=== PATIENT | female | born 1935 | race Caucasian/White ===

== ENCOUNTER 2016-09-16 21:24 | Inpatient (IN) | payer MEDICARE ==
[~2016-09-16] VITALS: Ht 147.3 cm; Wt 80.1 kg
--- NOTE | ~2016-09-16 | HEMODYNAMI ---
PATIENT:MICHELLE MEDRANO MEDICAL RECORD: [id number] : 31 LOCATION:[facility].[address] [place], [place] [address]T# [id number] ADMISSION DATE: 09/16/16 Generatedon:09/19/201614:39 Patient name: MICHELLE MEDRANO Patient #: [id number] SSN: DO B: 1935 Date of study: 09/19/2016 Page: Of Hemodynamic Procedure Report Patient Data Patient Demographics Procedure consent was obtained First Name: MICHELLE Gender: Female Last Name: MITCHELL : 1935 [facility] Initial: R Age: 81 year(s) Patient #: [id number] Race: Additional ID: [id number] Contact details Address: [address] [place] [address] State: [place] City: [place] Zip code: [address] Past Medical History Allergies Allergen Reaction Date Comments Reported Other allergy 09/19/2016 INDOCIN, TRAMADOL Admission Admission Data Admission Date: 09/16/2016 Admission Time: 23:44 Room #: [facility] Lab Results Lab Result Date: 09/19/2016 Lab Result Time: 0:00 Biochemistry Name Units Result Min Max BUN mg/dl 18 --(---*)-- 7 18 Creatinine mg/dl 1.5 --(----)-* 0.6 1.3 CBC Name Units Result Min Max Hemoglobin g/dl 10.6 *-(----)-- 13.5 17.5 Procedure Procedure Types Cath Procedure Diagnostic Procedure [facility] w/Coronaries PCI Procedure Coronary Stent Initial Procedure Description Procedure Date Procedure Date: 09/19/2016 Procedure Start Time: 14:18 Procedure End Time: 14:38 Procedure Staff Name Function Manuel Valentin MD Performing Physician Eleazar Escobedo RT Scrub Jonny Garibay RN Nurse Reece Boyd RT Monitor Procedure Data Cath Procedure Fluoroscopy Diagnostic fluoroscopy Total fluoroscopy Time: 4.7 time: 4.7 min min Diagnostic fluoroscopy Total fluoroscopy dose: 361 dose: 361 mGy mGy Contrast Material Contrast Material Type Amount (ml) Isovue 300 110 Entry Location Entry Primary Successful Side Size Upsize Upsize Entry Closure Garvey ccessful Closure Location (Fr) 1 (Fr) 2 (Fr) Remarks Device Remarks Radial Right 6 Fr Mechanical artery Short Compression Estimated blood loss: 10 ml Diagnostic catheters Device Type Used For End Catheter Placement Diagnostic Terumo 5Fr Procedure [place] 110cm catheter Procedure Medications Medication Administration Route Dosage Oxygen NC 2 l/min Heparin Flush Bag added to field 2 bags (1000units/500ml NS) 0.9% NaCl I.V. 100 ml/hr Radial Cocktail added to field 1 syringe (Verapomil 2mg/Nitro 400mcg/Heparin 1500units) Plavix P.O. 75 mg Fentanyl I.V. 50 mcg Versed I.V. 1 mg Radial Cocktail I.A. 1 syringe (Verapomil 2mg/Nitro 400mcg/Heparin 1500units) Heparin Bolus I.V. 4000 units Fentanyl I.V. 50 mcg Versed I.V. 1 mg Hemodynamics Rest HGB: 10.6 (g/dl) Heart Rate: 76 (bpm) Pressure Samples Time Site Value (mmHg) Purpose Heart Use Rate(bpm) 14:21 LV 105/5,34 Snapshot 74 14:21 AO 128/28(57) Snapshot 73 Snapshots Pre Cath Intra NCS Post Cath Vital Signs Time Heart Resp SPO2 NIBP (mmHg) Rhythm Pain Sedation Rate (ipm) (%) Status Level (bpm) 14:04:16 79 19 87 134/107(122) NSR 0 (11) 10(A) , No pain 14:08:53 76 19 95 146/69(100) NSR 0 (11) 10(A) , No pain 14:13:31 73 21 95 129/65(103) NSR 0 (11) 10(A) , No pain 14:18:12 72 22 93 119/55(88) NSR 0 (11) 10(A) , No pain 14:22:48 74 19 92 104/51(91) NSR 0 (11) 10(A) , No pain 14:27:19 70 23 95 114/53(92) NSR 0 (11) 9(A) , No pain 14:31:51 68 22 96 118/60(95) NSR 0 (11) 9(A) , No pain 14:36:19 74 21 95 124/73(113) NSR 0 (11) 10(A) , No pain Medications Time Medication Route Dose Verified Delivered Reason Note s Effectiveness by by 14:05:43 Oxygen NC 2 l/min Jonny Fuller Per physician Phoenix Garibay RN RN 14:05:59 Heparin Flush added 2 bags Jonny Fuller used for Bag to Phoenix Garibay RN procedure (1000units/500ml field RN NS) 14:06:27 0.9% NaCl I.V. 100 Jonny Fuller Per physician ml/hr Phoenix Garibay RN RN 14:06:47 Radial Cocktail added 1 Jonny Fuller used for (Verapomil to syringe Phoenix Garibay RN procedure 2mg/Nitro RN 400mcg/Heparin 1500units) 14:09:28 Plavix P.O. 75 mg Jonny Fuller for Phoenix Garibay RN antiplatelet RN therapy 14:20:23 Fentanyl I.V. 50 mcg Jonny Fuller for sedation Phoenix Garibay RN RN 14:20:59 Versed I.V. 1 mg Jonny Fuller for sedation Phoenix Garibay RN RN 14:21:08 Radial Cocktail I.A. 1 Jonny Jackson for (Verapomil syringe Phoenix Valentin MD vasodilation 2mg/Nitro RN 400mcg/Heparin 1500units) 14:22:38 Fentanyl I.V. 50 mcg Jonny Fuller for sedation Phoenix Garibay RN RN 14:22:44 Versed I.V. 1 mg Jonny Fuller for sedation Phoenix Garibay RN RN 14:29:40 Heparin Bolus I.V. 4000 Manuel Jonny for units Barbie Garibay RN anticoagulation Procedure Log Time Note 13:30:01 Jonny Garibay RN sent for patient. Start room use. 13:34:33 Diagnostic Cath Status : Elective 13:35:03 Time tracking: Regular hours 13:35:08 Plan of Care:Hemodynamics will remain stable., Cardiac rhythm will remain stable., Comfort level will be maintained., Respiratory function will remain adequate., Patient/ family verbilizes understanding of procedure., Procedure tolerated without complication., Recovers from procedure without complications.. 13:50:42 Patient received from Med/Surg to [facility] 3 Alert and oriented. Tansferred to table in Supine position. 13:50:43 Warm blankets applied, and jaida hugger turned on for patient comfort. 13:50:44 Correct patient and procedure confirmed by team. 13:50:45 Signed procedure consent form obtained from patient. 13:50:45 ECG and BP/O2 sat monitors applied to patient. 14:02:40 Vital chart was started 14:05:43 Oxygen 2 l/min NC was administered by Jonny Garibay RN; Per physician; 14:05:59 Heparin Flush Bag (1000units/500ml NS) 2 bags added to field was administered by Jonny Garibay RN; used for procedure; 14:06:27 0.9% NaCl 100 ml/hr I.V. was administered by Jonny Garibay RN; Per physician; 14:06:47 Radial Cocktail (Verapomil 2mg/Nitro 400mcg/Heparin 1500units) 1 syringe added to field was administered by Jonny Garibay RN; used for procedure; 14:09:28 Plavix 75 mg P.O. was administered by Jonny Garibay RN; for antiplatelet therapy; 14:09:39 Baseline sample Acquired. 14:09:44 Rhythm: sinus rhythm 14:09:45 Full Disclosure recording started 14:10:47 H&P Date Dictated: 09/16/2016 Within 30 days and on chart., ER History on chart.. 14:10:50 Pre-procedure instructions explained to patient. 14:10:53 Pre-op teaching completed and patient verbalized understanding. 14:10:56 Family in patients room. 14:11:00 Patient NPO since Breakfast. 14:12:35 Patient allergic to Other allergyINDOCIN, TRAMADOL 14:12:41 Is the patient allergic to Iodine/contrast media? No. 14:12:44 Is patient on blood thinner?Yes 14:13:02 Patient diabetic? Yes. 14:13:03 If diabetic: On Metformin? No 14:13:06 Patient not . Patient is over age 55. 14:13:08 ----Pre-sedation anethsthesia assessment.---- 14:13:09 Snore? Yes 14:13:11 Sleep apnea? No 14:13:13 Deviated septum? No 14:13:14 Opens mouth fully? Yes 14:13:15 Sticks out tongue? Yes 14:13:20 Airway obstruction? Yes COPD 14:13:26 Dentures? Yes IN TIGHT 14:13:48 ACC The patient was administered the following blood thiners within the last 24 hours: ACCPlavix 14:13:58 Modified Johnathan's test Ulnar < 7 seconds 14:14:00 Patient pain scale 0/10 ?. 14:14:09 IV patent on arrival in left wrist with 0.9% NaCl at [facility]. 14:14:20 IV right wrist D/C'd due to need to relocate for procedure.. 14:14:48 Lab Result : BUN 18 mg/dl 14:14:48 Lab Result : Creatinine 1.5 mg/dl 14:14:48 Lab Result : Hemoglobin 10.6 g/dl 14:15:26 Lab results completed and on chart. 14:15:32 Right Radial & Right Groin area was prepped with chlora-prep and draped in sterile fashion 14:15:34 Alarms reviewed by R. N. 14:15:34 Sharps counted by scrub and verified by R.N. 14:15:40 Physician arrived 14:15:41 --------ALL STOP TIME OUT------ 14:15:41 Final Timeout: patient, procedure, and site verified with staff and physician. All members of the team are in agreement. 14:15:46 Right Radial & Right Groin site verified by team. 14:15:50 Physical assessment completed. ASA score P 2 - A patient with mild systemic disease as per Manuel Valentin MD. 14:15:55 Sedation plan: IV Moderate Sedation Versed, Fentanyl 14:17:33 Use device set Radial Dx 14:17:35 Acist Syringe opened to sterile field. 14:17:35 Medline Cath Pack opened to sterile field. 14:17:36 Bag Decanter opened to sterile field. 14:17:36 Terumo 6Fr Slender Glidesheath opened to sterile field. 14:17:37 St Te 260cm J .035 wire opened to sterile field. 14:17:37 Acist Hand Control opened to sterile field. 14:17:38 Acist Manifold opened to sterile field. 14:17:38 Tegaderm 4 x 4 opened to sterile field. 14:17:41 MBrace Wrist Support opened to sterile field. 14:18:41 Procedure started. 14:18:51 Local anesthetic to right radial artery with Lidocaine 2% by Manuel Valentin MD.INITIAL ACCESS ONLY 14:19:25 A 6 Fr Short sheath was inserted into the Right Radial artery 14:19:59 Zero performed for pressure channel P1 14:20:23 Fentanyl 50 mcg I.V. was administered by Jonny Garibay RN; for sedation; 14::59 Versed 1 mg I.V. was administered by Jonny Garibay RN; for sedation; 14:21:08 Radial Cocktail (Verapomil 2mg/Nitro 400mcg/Heparin 1500units) 1 syringe I.A. was administered by Manuel Valentin MD; for vasodilation; 14::19 A Diagnostic Impulsiv 5Fr [place] 110cm catheter was advanced over the wire and used for Procedure. 14:21:39 LV hemodynamics recorded. 14:21:41 LV gram done using DESHPANDE 14:21:46 EF : 60 % 14:22:22 LCA angiography performed. 14:22:38 Fentanyl 50 mcg I.V. was administered by Jonny Garibay RN; for sedation; 14::44 Versed 1 mg I.V. was administered by Jonny Garibay RN; for sedation; 14:23:59 Catheter removed. 14:24:12 UNABLE TO CANNULATE THE THOM 14:25:12 Medtronic Launcher 6Fr AR 1.0 guide catheter opened to sterile field. 14:25:13 Smalls iWeeboisper J 300cm 0.014 guide wire opened to sterile field. 14:25:14 Rock ControlixCompak Inflation Kit opened to sterile field. 14:25:33 6 Fr AR 1 guide catheter was inserted over the wire 14:26:31 RCA angiography performed. 14:27:19 Proceeding to intervention. 14:28:59 WHISPER wire advanced. 14:29:01 Wire advanced across lesion. 14:29:29 Inflation Number: 1 A Biofreedom 3.5 x 24 stent (No Cost Implant) was prepped and advanced across the Mid RCA. The stent was deployed at 13 PATIENCE for 0:10 (min:sec). 14:29:40 Heparin Bolus 4000 units I.V. was administered by Jonny Garibay RN; for anticoagulation; 14:30:12 RE-INFLATED TO 17 ATS 14:30:15 Stent catheter was removed intact over wire. 14:31:56 Inflation Number: 1 A Biofreedom 3.5 x 14 stent (No Cost Implant) was prepped and advanced across the Prox RCA. The stent was deployed at 17 PATIENCE for 0:10 (min:sec). 14:31:57 Stent catheter was removed intact over wire. 14:31:58 Wire removed. 14:31:59 Guide catheter removed. 14:32:36 Terumo TR Band Large opened to sterile field. 14:34:19 Sheath removed intact; hemostasis achieved with Mechanical Compression to the Right Radial artery. 14:34:21 Procedure ended.(Physican Out) 14:34:35 Fluoroscopy time 04.70 minutes. 14:34:42 Fluoroscopy dose: 361 mGy 14:34:42 Flurop Dose total: 361 14:34:47 Contrast amount:Isovue 300 110ml. 14:34:48 Sharps counted by scrub and verified by R.N. 14:35:51 Procedure type changed to Cath procedure, Diagnostic procedure, LHC, LHC w/Coronaries, PCI procedure, Coronary Stent Initial 14:36:50 TR band inflated with 10cc of air. 14:36:52 Insertion/operative site no bleeding no hematoma. 14:37:10 Post right radial artery:stable 14:37:17 Post-procedure physical assessment completed. ASA score P 2 - A patient with mild systemic disease as per Mnauel Valentin MD. 14:37:21 Post procedure rhythm: sinus rhythm 14:37:24 Estimated blood loss: 10 ml 14:37:26 Post procedure instruction explained to patient.Patient verbalizes understanding. 14:37:34 Patient needs reinforcement of post procedure teaching. 14:37:38 Procedure and supply charges have been captured, reviewed, submitted and are correct. 14:37:45 Vital chart was stopped 14:37:46 See physician's report for complete and final results. 14:37:52 Report given to PCU. 14:37:59 Patient transfered to PCU with Bed. 14:38:11 Procedure ended. 14:38:11 Full Disclosure recording stopped 14:39:01 End room use (Document Last) Intervention Summary Intervention Notes Time ActionType Lesion and Equipment Action# Pressure Duration Attributes Used 14:29:29 Place stent Mid RCA Biofreedom 1 13 00:10 3.5 x 24 stent (No Cost Implant) 14:31:56 Place stent Prox RCA Biofreedom 1 17 00:10 3.5 x 14 stent (No Cost Implant) Device Usage Item Name Manufacture Quantity Catalog Hospital Part Current Minimal Lot# / Number Charge Number Stock Stock Serial# Code Acist Acist 1 72785 [id number] 154129 006913 20 Syringe Medical Systems Inc Medline Cardinal 1 [id number] 770626 87473 423310 5 Cath Pack Health Bag Microtek 1 2002S 076620 37801 984978 5 Avison Young Medical Inc. Terumo 6Fr Terumo 1 [id number] 498355 444092 861754 [address] Te St Te 1 326101 599128 022371 137761 30 260cm J .035 wire Acist Hand Acist 1 23716 083864 163586 388862 5 Control Medical Systems Inc Acist Acist 1 20945 382752 224026 330349 5 Manifold Medical Systems Inc Tegaderm 4 3M 1 1626W 953005 323576 465749 5 x 4 MBrace Advanced 1 140-0250-00 318356 54617 271539 5 Wrist Vascular Support Dynamics Diagnostic Terumo 1 88-7157 023641 942561 599700 5 Terumo 5Fr [place] 110cm catheter Medtronic Medtronic 1 [id number] 081752 18348 550909 1 Launcher 6Fr AR 1.0 guide catheter Smalls Smalls 1 [id number] 560137 088097 352721 5 Whisper J Vascular 300cm 0.014 guide wire Merit Merit 1 [id number] 061677 150350 710771 15 mLEDixAcadia Healthcare Medical Inflation Kit Biofreedom Biosensors 1 [facility]2-3524 618842 057692 5 [id number] 3.5 x 24 [place] stent (No Cost Implant) Biofreedom Biosensors 1 [facility]2-3514 768485 096557 5 [id number] 3.5 x 14 [place] SA stent (No Cost Implant) Terumo TR Terumo 1 [id number] 817031 699162 561473 40 Band Large Signature Audit [place] Stage Time Signature Unsigned Intra-Procedure 09/19/2016 Reece Boyd 2:39:22 PM RT(R) (CV) Signatures Monitor : Reece Boyd RT Signature : Date : Time : [address] [place] [address]
--- NOTE | ~2016-09-16 | PRO ---
PATIENT:MICHELLE MEDRANO MEDICAL RECORD: [id number] : 31 LOCATION:D.M2 D.2115 ADMISSION DATE: 09/16/16 PROCEDURE PERFORMED BY: DEVEN CEJA MD PROCEDURE DATE: 09/19/16 PROCEDURES: 1. Percutaneous transluminal coronary angioplasty stent right coronary artery. 2. Left heart catheterization. 3. Selective coronary angiography. 4. Left ventriculogram. INDICATION: 1. Angina. 2. Coronary artery disease. PROCEDURE IN DETAIL: After informed consent was obtained and after detailed explanation of risks, benefits, as well as alternative therapies, the patient elected to proceed with angiogram and angioplasty. The right radial area was prepped and draped in a normal sterile fashion. The right radial artery was cannulated via modified Seldinger technique with placement of 6-Syriac sheath. All catheters exchanged through this sheath. FINDINGS: The left ventriculogram was performed in standard 30 degree DESHPANDE view, reveals good cardiac wall motion with ejection fraction of 60%. SELECTIVE CORONARY ANGIOGRAPHY: 1. Left main is with no significant angiographic disease. 2. Left anterior descending has mild irregularities but no flow-limiting stenosis. 3. Left circumflex has moderate irregularities but no flow-limiting stenosis. 4. The right coronary artery has 75% stenosis in the proximal and mid vessel. The proximal lesion is a 10 millimeter lesion in a 3.5 vessel with GAUTAM 3 flow. The mid lesion is a 20 millimeter lesion in a 3.5 vessel with GAUTAM 3 flow. PTCA STENT OF THE RIGHT CORONARY ARTERY: The mid lesion was addressed with a 3.5 X 24 millimeter BioFreedom stent and proximally with a 3.5 X 14 millimeter BioFreedom stent. The result was 0% residual stenosis. OVERALL IMPRESSION: Successful percutaneous transluminal coronary angioplasty stent of the right coronary artery going from 75% initial stenosis times two with congregation of GAUTAM 3 flow to 0% residual stenosis. DEVEN CEJA MD CC: [id number] DICTATION DATE: 09/19/162205 FOOD TECHNOLOGY TEACHER: JANUPAMA 09/19/162205 ADM IN [facility] [address] [id number]
[~2016-09-16 21:24] MED LIST: ASPIRIN325 MG PO; BAYER CHEWABLE81 MG PO; BREO ELLIPTA 11 EACH INH; CARAFATE1 G PO; COREG25 MG PO; DIOVAN160 MG PO; GLUCOTROL 5 MG T5 MG PO; HYDROCODONE-APA1 TAB PO; KLOR-CON 1010 MEQ PO; LASIX40 MG PO; MEDROL DOSE PACK4 MG PO; NORCO 5/325 TAB1 TA1 PO; OMNICEF300 MG PO; PRAVACHOL40 MG PO; PRILOSEC20 MG PO; PROVENTIL HFA6.7 GM INH; VESICARE5 MG PO; VITAMIN D31000 UNIT PO; ZYLOPRIM300 MG PO
[2016-09-16 22:22] LABS: BASOPHILS 0.3 % (0-2); EOSINOPHILS 4.5 % (0-7); HEMATOCRIT 36.8 % (36.0-48.0); HEMOGLOBIN 11.4 g/dL (12-16); IMMATURE GRANULOCYTES 0.5 % (0-5); MCH 28.4 pg (26.0-34.0); MCV 91.8 fL (80.0-100.0); MEAN PLATELET VOLUME 9.8 fL (7.4-10.4); MONOCYTES 9.8 % (2-11); NEUTROPHILS 70.9 % (40-80); RBC 4.01 10x6/uL (4.00-5.40); RDW 15.7 % (11.5-14.5); WBC 9.9 10x3/uL (4.8-10.8)
[2016-09-16 22:28] LABS: PLATELET COUNT 244 10x3/uL (130-400)
[2016-09-16 22:58] LABS: ALBUMIN 3.1 g/dL (3.4-5.0); ALKALINE PHOSPHATASE 104 U/L (46-116); ALT (SGPT) 15 U/L (10-68); BILIRUBIN - TOTAL 0.43 mg/dL (0.2-1.3); CALC OSMOLALITY 283 mosm/kg (275-300); CALCIUM 8.9 mg/dL (8.5-10.1); CARBON DIOXIDE 29.2 mmol/L (21.0-32.0); CHLORIDE - SERUM 105 mmol/L (98-107); CREATININE - SERUM 1.4 mg/dL (0.6-1.3); GLUCOSE 105 mg/dL (74-106); POTASSIUM - SERUM 3.9 mmol/L (3.5-5.1); PROTEIN - SERUM 6.4 g/dL (6.4-8.2); SODIUM 142 mmol/L (136-145); UREA NITROGEN 15 mg/dL (7-18); eGFR NON AFRICAN AMERICAN 38 mL/min (90-120)
[2016-09-16 23:00] LABS: CREATINE KINASE 101 UL (21-215); MAGNESIUM - SERUM 1.6 mg/dL (1.8-2.4); PRO BNP 650 pg/mL (0-450); TROPONIN-I < 0.017 ng/mL (0.000-0.060)
[2016-09-16] MEDS ORDERED: COZAAR100 MG PO (23:54)
[2016-09-16] MEDS ORDERED: BENTYL 20 MG TA20 MG (23:58)
[2016-09-17 00:27] VITALS: BP 137/60; BMI 36.8
--- NOTE | 2016-09-17 00:32 | NUR ---
2345 ADMITTED TO ROOM 2205 VIA STRECHER FROM ER ACCOMPAINED BY FAMILY. DX; CHF. ALERT ORIENTED X 3. AMBULATES VIA WALKER WITH SLOW GAIT. NO COMPLAINTS VOICED AT PRESENT. CL IN REACH.
[2016-09-17 04:00] VITALS: BP 133/52
--- NOTE | 2016-09-17 05:10 | NUR ---
AWAKE ALERT. NO CHANGE IN ASSESMENT. CL IN REACH. FAMILY AT BEDSIDE.
--- NOTE | 2016-09-17 07:45 | NUR ---
ASSESSMENT PER FLOW SHEET.FAMILY AT BEDSIDE.PT COMPLAINS OF CHRONIC PAIN TO SHOULDERS.REQUEST PAIN MED WHEN ORDERED.FALL PREVENTION INITIATED.CALL LIGHT IN REACH.
[2016-09-17 08:01] VITALS: BP 140/52
--- NOTE | 2016-09-17 10:25 | NUR ---
Patient Name: MICHELLE MEDRANO Admission Status: ER Accout number: [id number] Admission Date: 09-16-2016 : 1935 Admission Diagnosis:ACUTE ON CHRONIC SYSTOLIC (CONGESTIVE) HEART FAILURE Attending: RAMONITA Current LOS: 1 Anticipated DC Date: 09-22-2016 Planned Disposition: Home Primary Insurance: [employer] CHOICE PPO MCR ADVANT Discharge Planning Comments: CM MET WITH PATIENT AND HER DAUGHTER (MELVIN) REGARDING D/C NEEDS AND PLANS. DAUGHTER STATED PATIENT LIVES WITH HER AND SHE WILL DRIVE HER HOME AT DISCHARGE. THERE ARE NO STEPS OR STAIRS AT THERE HOME. PATIENT IS INDEPENDENT WITH HER CARE AND HAS A WALKER, SHOWER CHAIR, CANE, AND GLUCOMETER (CKS.2XDAILY) AT HOME. PATIENTS PCP IS DR. LAMAR AND PHARMACY IS [facility]. DAUGHTER STATED HER MOTHER DID NOT NEED HOME HEALTH AT THIS TIME. CM WILL CONTINUE TO FOLLOW PATIENT WITH D/C NEEDS AND PLANS. PCP DR. BRIANDA CRANDALL ON [facility]- [phone] MELVIN (DAUGHTER) [phone] Briefcase Sewer: Jennifer Mccullough Is the patient Alert and Oriented? No 0 * How many steps to enter\exit or inside your home? 0 0 * PCP DR. LAMAR 0 * [facility] 0 * Preadmission Environment Home with Family 0 * ADLs Independent 0 * Equipment Cane Glucometer Shower Chair Walker 0 * List name and contact numbers for known caregivers / representatives who currently or will assist patient after discharge: MELVIN (DAUGHTER) [phone] 0 * Community resources currently utilized None 0 * Additional services required to return to the preadmission environment? Yes 0 * Can the patient safely return to the preadmission environment? Yes 0 * Has this patient been hospitalized within the prior 30 days at any hospital? No 0 Grand Total: 0
[2016-09-17 12:08] VITALS: BP 104/40
[2016-09-17 13:12] VITALS: Ht 147.3 cm; Wt 80.1 kg
[2016-09-17 16:30] VITALS: BP 112/43
--- NOTE | 2016-09-17 18:45 | NUR ---
REMAINS WITHOUT NEEDS,WITHOUT CHANGE FROM INITIAL SHIFT ASSESSMENT.CONT PLAN OF CARE
[2016-09-17 19:00] VITALS: BP 129/50
--- NOTE | 2016-09-17 19:00 | NUR ---
RAPID RESPONSE CALLED, PT C/O OF L SIDED PAIN SHARP 08/16 HAS HX OF CHF AND OH. STAT EKG AND CARDIAC ENZYMES ADM. EKG READ BACK NS WITH 1ST DEGREE AV BLOCK WHEN COMPARED TO PREVIOUS EKG NO CHANGES WERE NOTED. HR 87 BP 100/56 HR O2 SAT 97% RR 20 ON 2L NC. PAGED ALYSSA GIVEN UPDATE. NO FURTHER ORDERS AT THIS TIME. UPDATED PT. WILL REASSESS CARDIAC ENZYMES.
--- NOTE | 2016-09-17 19:00 | NUR ---
PT WOKE FROM [facility] AND WAS COMPLAINING OF CHEST PAIN,RAPID RESPONCE CALLED,SEE SHEET.
[2016-09-17 19:36] LABS: CKMB 0.4 U/L (0.0-3.6); CREATINE KINASE 78 UL (21-215)
[2016-09-17 19:37] LABS: TROPONIN-I < 0.017 ng/mL (0.000-0.060)
--- NOTE | 2016-09-17 20:00 | NUR ---
LYING QUIETLY. NO COMPLAINTS OF CHEST PAIN AT THIS TIME. SL INTACT TO RIGHT FOREARM WIHTOUT REDNESS OR EDEMA NOTED. O2 @ 2 L PER NC ON. NO DISTRESS NOTED. CL IN REACH. FAMILY AT BEDSIDE.
[2016-09-18 04:00] VITALS: BP 119/51
[2016-09-18 05:16] LABS: BASOPHILS 0.1 % (0-2); EOSINOPHILS 3.5 % (0-7); HEMATOCRIT 33.9 % (36.0-48.0); HEMOGLOBIN 10.6 g/dL (12-16); IMMATURE GRANULOCYTES 0.5 % (0-5); LYMPHOCYTES 16.5 % (15-50); MCH 28.5 pg (26.0-34.0); MCHC 31.3 g/dL (31.0-37.0); MCV 91.1 fL (80.0-100.0); MEAN PLATELET VOLUME 10.4 fL (7.4-10.4); MONOCYTES 10.9 % (2-11); NEUTROPHILS 68.5 % (40-80); PLATELET COUNT 243 10x3/uL (130-400); RBC 3.72 10x6/uL (4.00-5.40); RDW 15.8 % (11.5-14.5); WBC 9.7 10x3/uL (4.8-10.8)
[2016-09-18 05:33] LABS: ALBUMIN 2.6 g/dL (3.4-5.0); ANION GAP 10.6 mmol/L (8-16); BILIRUBIN - TOTAL 0.66 mg/dL (0.2-1.3); CALCIUM 8.5 mg/dL (8.5-10.1); CARBON DIOXIDE 31.8 mmol/L (21.0-32.0); CREATININE - SERUM 1.5 mg/dL (0.6-1.3); MAGNESIUM - SERUM 1.4 mg/dL (1.8-2.4); PHOSPHOROUS 3.3 mg/dL (2.5-4.9); POTASSIUM - SERUM 3.4 mmol/L (3.5-5.1); PROTEIN - SERUM 5.6 g/dL (6.4-8.2)
--- NOTE | 2016-09-18 06:17 | NUR ---
AWAKE,ALERT, UP TO BR WITH ASSIST. BACK TO BED. NO COMPLAINTS VOICED. CL IN REACH
[2016-09-18] MEDS ORDERED: IPRAT-ALBUT 0.5-3 ML INH (07:04)
[2016-09-18] MEDS ORDERED: MEDROL DOSE PACK4 MG PO (07:04)
[2016-09-18] MEDS ORDERED: OMNICEF300 MG PO (07:05)
[2016-09-18 07:52] VITALS: BP 153/53
--- NOTE | 2016-09-18 08:00 | NUR ---
PT ROOM AIR SAT IS 86%. PLACED PT ON 2L. O2 SAT RETURNED TO 95%
--- NOTE | 2016-09-18 08:15 | NUR ---
ASSESSMENT PER FLOW SHEET.PT WITHOUT DISTRESS.FAMILY AT BEDSIDE.CALL LIGHT IN REACH.WILNER MAT ON AND FUNCTIONING.
--- NOTE | 2016-09-18 11:07 | NUR ---
Patient discharging today. CM setting up O2 from [facility] & patient is being set up with [facility] per patients choice YAW signed. Aretha notified from [facility]. CM will continue to follow and assist
[2016-09-18 12:23] VITALS: BP 122/56
--- NOTE | 2016-09-18 13:13 | NUR ---
DISCHARGE WAS CANCELLED PER DR LAMAR. I CALLED AND SPOKE TO VIRGIL AT [facility] [place] TO LET HIM KNOW AND ALSO NOTIFIED GAGANDEEP WITH [facility].
[2016-09-18 15:41] VITALS: BP 118/56
--- NOTE | 2016-09-18 16:19 | NUR ---
PT REMAINS WITHOUT DISTRESS,REMAINS WITHOUT CHEST PAIN.FAMILY AT BEDSIDE.
--- NOTE | 2016-09-18 19:49 | NUR ---
REMAINS WITHOUT NEEDS,WITHOUT DISTRESS.CONT PLAN OF CARE
[2016-09-18 20:00] VITALS: BP 145/59; BP 147/61
[2016-09-19 04:00] VITALS: BP 136/59
--- NOTE | 2016-09-19 07:25 | NUR ---
ASSESSMENT PER FLOW SHEET.PT WITHOUT DISTRESS.NPO FOR PROCEDURE TODAY.FAMILY IS AT BEDSIDE.FALL PREVENTION IN PLACE WITH WILNER MAT ON AND FUNCTIONING.CALL LIGHT IN REACH.
[2016-09-19 08:16] VITALS: BP 119/60
[2016-09-19 10:34] LABS: ANION GAP 11.7 mmol/L (8-16); CREATININE - SERUM 1.4 mg/dL (0.6-1.3)
[2016-09-19 10:36] LABS: POTASSIUM - SERUM 3.7 mmol/L (3.5-5.1)
--- NOTE | 2016-09-19 11:55 | NUR ---
MEDS ORDERED PRE PROCEDURE.IV SITED TO LEFT FOREARM X1 STICK USING ASEPTIC TECH,22G.PT TOLERATED WELL.
[2016-09-19 12:45] VITALS: BP 145/53
--- NOTE | 2016-09-19 13:37 | NUR ---
TO SHIPPING CLERK PACKING VIA BED.
--- NOTE | 2016-09-19 14:46 | NUR ---
REPORT TO JAUN ON PCU.PT WILL GO TO ROOM 1450
--- NOTE | 2016-09-19 15:00 | NUR ---
RECIEVED FROM OPTICAL ELEMENT COATER BY JOEL. NAOMI WNL. RIGHT WRIST STABLE WITH TR BAND INTACT. WILL MONITOR.
[2016-09-19 16:07] VITALS: BP 144/67
[2016-09-19 19:00] VITALS: BP 142/62
--- NOTE | 2016-09-19 19:00 | NUR ---
RECEIVED REPORT AND ASSUMED PT CARE FROM DAY SHIFT NURSE @ THIS TIME.
--- NOTE | 2016-09-19 22:34 | NUR ---
PT RESTING WITHOUT C/O OR DISTRESS NOTED. CALL LIGHT WITHIN REACH. NO NEEDS VERBALIZED. BED ALARM SET. WILL CONTINUE TO MONITOR.
--- NOTE | 2016-09-19 23:05 | NUR ---
PT'S DAUGHTER REQUESTS NO LASIX TO BE GIVEN AT THIS TIME. AGREED TO START GIVING LASIX AT 0600 AND 1800. WILL NOTIFY PHARMACY OF CHANGE.
[2016-09-20] VITALS: BP 138/62
--- NOTE | 2016-09-20 00:13 | NUR ---
ASSESSMENT REMAINS UNCHANGED. PT RESTING SOUNDLY WITHOUT C/O OR DISTRESS NOTED. DENIES ANY CURRENT C/O PAIN. WILL CONT TO MONITOR
--- NOTE | 2016-09-20 03:20 | NUR ---
PT C/O OF A HEADACHE, REQUESTS NORCO. NORCO 10/325 MG 1 PO GIVEN. WILL MONITOR.
[2016-09-20 05:50] LABS: BASOPHILS 0.1 % (0-2); EOSINOPHILS 0.8 % (0-7); HEMATOCRIT 33.9 % (36.0-48.0); HEMOGLOBIN 10.5 g/dL (12-16); IMMATURE GRANULOCYTES 0.4 % (0-5); LYMPHOCYTES 8.9 % (15-50); MCV 90.4 fL (80.0-100.0); MEAN PLATELET VOLUME 9.9 fL (7.4-10.4); MONOCYTES 11.9 % (2-11); NEUTROPHILS 77.9 % (40-80); PLATELET COUNT 231 10x3/uL (130-400); RBC 3.75 10x6/uL (4.00-5.40); RDW 15.7 % (11.5-14.5); WBC 13.1 10x3/uL (4.8-10.8)
[2016-09-20 06:11] LABS: ANION GAP 10.3 mmol/L (8-16); CALCIUM 8.7 mg/dL (8.5-10.1); CARBON DIOXIDE 32.3 mmol/L (21.0-32.0); CREATININE - SERUM 1.5 mg/dL (0.6-1.3); POTASSIUM - SERUM 3.6 mmol/L (3.5-5.1)
--- NOTE | 2016-09-20 07:30 | NUR ---
RECEIVED PT IN BED EYES CLOSED RESP UNLABORED NAD NOTED
[2016-09-20 07:42] VITALS: BP 123/55
[2016-09-20] MEDS ORDERED: PLAVIX75 MG PO (11:21)
--- NOTE | 2016-09-20 14:15 | NUR ---
REVIEWED DISCHARGE INSATRUCTIONS WITH PT AND DAUGHTER BOTH STATE UNDERSTANDING COPY GIVEN SALINE LOCK DCD TO LFA WITH 20 GA IV CATH INTACT SITE FREE OF REDNESS OR EDEMA PT DISCHARGED HOME IN STABLE CONDITION WITH ALL PERSONAL BELONGINGS LEFT UNIT VIA W/C WITH STAFF AND FAMILY
--- NOTE | 2016-09-20 19:38 | NUR ---
Late Entry 1030 Patient for discharge to home with [facility]. Her portable O2 is at the bedside. Patient is to call [facility] for delivery of stationary unit when she arrives home. TC to [facility] and spoke with All, the abalone sheller nurse. Faxed discharge information. [facility] will advise patient of visit date.
== END 2016-09-20 14:15 | disposition home health service (06) | DRG 246 ==
LOC: D.ER 21:24 → D.MS 23:44 → D.M2 09-19 14:07
PROVIDERS: Emergency Medicine; Internal Medicine Interventional Cardiology; ADMIT Family Medicine
PROC: B2111ZZ Fluoroscopy of Multiple Coronary Arteries using Low Osmolar Contrast (ICD-10-PCS; 2016-09-19)
PROC: B2151ZZ Fluoroscopy of Left Heart using Low Osmolar Contrast (ICD-10-PCS; 2016-09-19)
PROC: 027035Z Dilation of Coronary Artery, One Artery with Two Drug-eluting Intraluminal Devices, Percutaneous Approach (ICD-10-PCS; principal; 2016-09-19 10:00)
PROC: 4A023N7 Measurement of Cardiac Sampling and Pressure, Left Heart, Percutaneous Approach (ICD-10-PCS; 2016-09-19 10:00)
DX: I25.119 Atherosclerotic heart disease of native coronary artery with unspecified angina pectoris (principal); I50.23 Acute on chronic systolic (congestive) heart failure; I13.0 Hypertensive heart and chronic kidney disease with heart failure and stage 1 through stage 4 chronic kidney disease, or unspecified chronic kidney disease; J44.1 Chronic obstructive pulmonary disease with (acute) exacerbation; N18.9 Chronic kidney disease, unspecified; Z00.6 Encounter for examination for normal comparison and control in clinical research program; I65.21 Occlusion and stenosis of right carotid artery; E11.9 Type 2 diabetes mellitus without complications; M19.90 Unspecified osteoarthritis, unspecified site; K21.9 Gastro-esophageal reflux disease without esophagitis; R19.7 Diarrhea, unspecified; Z86.73 Personal history of transient ischemic attack (TIA), and cerebral infarction without residual deficits

== ENCOUNTER 2017-03-27 15:00 | Inpatient (IN) | payer MEDICARE ==
[~2017-03-27] VITALS: Ht 147.3 cm; Wt 77.0 kg
[~2017-03-27 15:00] MED LIST changes: +BENTYL 20 MG TA20 MG; +COZAAR100 MG PO; +IPRAT-ALBUT 0.5-3 ML INH; +PLAVIX75 MG PO
[2017-03-27 16:08] LABS: BASOPHILS 0.3 % (0-2); EOSINOPHILS 4.5 % (0-7); HEMATOCRIT 39.8 % (36.0-48.0); HEMOGLOBIN 12.2 g/dL (12-16); IMMATURE GRANULOCYTES 0.3 % (0-5); LYMPHOCYTES 19.5 % (15-50); MCH 27.4 pg (26.0-34.0); MCHC 30.7 g/dL (31.0-37.0); MCV 89.2 fL (80.0-100.0); MEAN PLATELET VOLUME 9.7 fL (7.4-10.4); NEUTROPHILS 63.4 % (40-80); PLATELET COUNT 234 10x3/uL (130-400); RBC 4.46 10x6/uL (4.00-5.40); RDW 14.5 % (11.5-14.5); WBC 7.6 10x3/uL (4.8-10.8)
[2017-03-27 16:29] LABS: ALBUMIN 3.7 g/dL (3.4-5.0); ANION GAP 8.2 mmol/L (8-16); BILIRUBIN - TOTAL 0.46 mg/dL (0.2-1.3); CALCIUM 9.4 mg/dL (8.5-10.1); CARBON DIOXIDE 34.1 mmol/L (21.0-32.0); CREATININE - SERUM 1.2 mg/dL (0.6-1.3); POTASSIUM - SERUM 4.3 mmol/L (3.5-5.1)
[2017-03-27] MEDS ORDERED: BACLOFEN10 MG PO (21:20)
[2017-03-27 21:30] VITALS: BP 136/74
[2017-03-27 23:14] LABS: APPEARANCE CLEAR (CLEAR); BILIRUBIN NEGATIVE (NEGATIVE); COLOR YELLOW (YELLOW); GLUCOSE NEGATIVE (NEGATIVE); KETONE NEGATIVE (NEGATIVE); NITRITE NEGATIVE (NEGATIVE); PROTEIN NEGATIVE (NEGATIVE); RED CELLS - URINE 25-50 /hpf (0-5); UROBILINOGEN NORMAL (NORMAL); WHITE CELLS - URINE 0-5 /hpf (0-5)
[2017-03-28 04:23] LABS: BASOPHILS 0 % (0-2); EOSINOPHILS 0 % (0-7); HEMOGLOBIN 12.2 g/dL (12-16); IMMATURE GRANULOCYTES 0.2 % (0-5); LYMPHOCYTES 15.2 % (15-50); MCH 27.8 pg (26.0-34.0); MCHC 31.3 g/dL (31.0-37.0); MCV 88.8 fL (80.0-100.0); MEAN PLATELET VOLUME 10.3 fL (7.4-10.4); MONOCYTES 0.7 % (2-11); NEUTROPHILS 83.9 % (40-80); PLATELET COUNT 238 10x3/uL (130-400); RBC 4.39 10x6/uL (4.00-5.40); RDW 14.4 % (11.5-14.5)
[2017-03-28 04:25] LABS: WBC 4.2 10x3/uL (4.8-10.8)
[2017-03-28 04:35] LABS: ANION GAP 11.3 mmol/L (8-16); CALCIUM 9.4 mg/dL (8.5-10.1); CARBON DIOXIDE 31.4 mmol/L (21.0-32.0); CREATININE - SERUM 1.4 mg/dL (0.6-1.3); POTASSIUM - SERUM 3.7 mmol/L (3.5-5.1)
[2017-03-28 05:54] VITALS: BP 136/74; BMI 35.1
[2017-03-28 06:36] VITALS: BP 120/68
[2017-03-28 09:09] VITALS: BP 126/68
[2017-03-28 09:40] LABS: CREATINE KINASE 57 UL (21-215)
[2017-03-28 09:43] LABS: TROPONIN-I < 0.017 ng/mL (0.000-0.060)
[2017-03-28 12:15] VITALS: BP 112/48
[2017-03-28 13:25] VITALS: Ht 147.3 cm; Wt 77.0 kg
[2017-03-28 15:12] LABS: CKMB 0.9 U/L (0.0-3.6); CREATINE KINASE 53 UL (21-215)
[2017-03-28 15:17] LABS: TROPONIN-I < 0.017 ng/mL (0.000-0.060)
[2017-03-28 15:58] VITALS: BP 125/62
[2017-03-28 20:26] VITALS: BP 142/44
[2017-03-28 22:07] LABS: CKMB 1.4 U/L (0.0-3.6); CREATINE KINASE 73 UL (21-215); TROPONIN-I < 0.017 ng/mL (0.000-0.060)
[2017-03-29 03:34] VITALS: BP 156/63
[2017-03-29 04:54] LABS: BASOPHILS 0 % (0-2); EOSINOPHILS 0.2 % (0-7); HEMATOCRIT 37.7 % (36.0-48.0); HEMOGLOBIN 11.9 g/dL (12-16); IMMATURE GRANULOCYTES 0.4 % (0-5); LYMPHOCYTES 7.4 % (15-50); MCH 27.8 pg (26.0-34.0); MCHC 31.6 g/dL (31.0-37.0); MCV 88.1 fL (80.0-100.0); MEAN PLATELET VOLUME 10.9 fL (7.4-10.4); MONOCYTES 2.5 % (2-11); NEUTROPHILS 89.5 % (40-80); RBC 4.28 10x6/uL (4.00-5.40); RDW 14.5 % (11.5-14.5)
[2017-03-29 04:55] LABS: PLATELET COUNT 121 10x3/uL (130-400); WBC 10.7 10x3/uL (4.8-10.8)
[2017-03-29 05:07] LABS: ANION GAP 10.1 mmol/L (8-16); BILIRUBIN - TOTAL 0.4 mg/dL (0.2-1.3); CALCIUM 8.7 mg/dL (8.5-10.1); CARBON DIOXIDE 29.1 mmol/L (21.0-32.0); CREATININE - SERUM 1.5 mg/dL (0.6-1.3); MAGNESIUM - SERUM 1.9 mg/dL (1.8-2.4); PHOSPHOROUS 3.2 mg/dL (2.5-4.9); POTASSIUM - SERUM 4.2 mmol/L (3.5-5.1); PROTEIN - SERUM 6.2 g/dL (6.4-8.2)
[2017-03-29 07:00] VITALS: BP 154/97
[2017-03-29] MEDS ORDERED: K-TAB10 MEQ PO (11:26)
[2017-03-29] MEDS ORDERED: LASIX40 MG PO (11:26)
[2017-03-29] MEDS ORDERED: MEDROL DOSE PACK4 MG PO (11:26)
[2017-03-29] MEDS ORDERED: DOXYCYCLINE HY100 M2 PO (11:27)
[2017-03-29 12:48] VITALS: BP 117/60
== END 2017-03-29 15:42 | disposition home health service (06) | DRG 190 ==
LOC: D.ER 15:00 → D.M2 19:21
PROVIDERS: Emergency Medicine; Family Medicine
DX: J44.1 Chronic obstructive pulmonary disease with (acute) exacerbation (principal); I50.33 Acute on chronic diastolic (congestive) heart failure; I11.0 Hypertensive heart disease with heart failure; J40 Bronchitis, not specified as acute or chronic; E11.9 Type 2 diabetes mellitus without complications; K21.9 Gastro-esophageal reflux disease without esophagitis; F41.9 Anxiety disorder, unspecified; F32.9 Major depressive disorder, single episode, unspecified; I25.10 Atherosclerotic heart disease of native coronary artery without angina pectoris; Z86.73 Personal history of transient ischemic attack (TIA), and cerebral infarction without residual deficits; Z87.891 Personal history of nicotine dependence

== ENCOUNTER 2017-09-09 14:48 | Emergency (ER) | payer MEDICARE ==
[~2017-09-09] VITALS: Ht 147.3 cm; Wt 77.3 kg
[~2017-09-09 14:48] MED LIST changes: +BACLOFEN10 MG PO; +DOXYCYCLINE HY100 M2 PO; +K-TAB10 MEQ PO
[2017-09-09 15:05] VITALS: Ht 147.3 cm; Wt 77.3 kg
[2017-09-09 15:58] LABS: BASOPHILS 0.3 % (0-2); EOSINOPHILS 3.9 % (0-7); HEMATOCRIT 34.7 % (36.0-48.0); HEMOGLOBIN 10.5 g/dL (12-16); IMMATURE GRANULOCYTES 0.3 % (0-5); LYMPHOCYTES 13.7 % (15-50); MCH 27.9 pg (26.0-34.0); MCHC 30.3 g/dL (31.0-37.0); MEAN PLATELET VOLUME 9.8 fL (7.4-10.4); MONOCYTES 8.2 % (2-11); NEUTROPHILS 73.6 % (40-80); RBC 3.77 10x6/uL (4.00-5.40); RDW 14.2 % (11.5-14.5); WBC 9.2 10x3/uL (4.8-10.8)
[2017-09-09 16:00] LABS: PLATELET COUNT 235 10x3/uL (130-400)
[2017-09-09 16:30] LABS: INR 1.01 (0.85-1.17); PROTIME 12.9 SECONDS (11.6-15.0)
[2017-09-09 16:59] LABS: ALBUMIN 3.1 g/dL (3.4-5.0); ANION GAP 9.3 mmol/L (8-16); BILIRUBIN - TOTAL 0.34 mg/dL (0.2-1.3); CALCIUM 8.8 mg/dL (8.5-10.1); CARBON DIOXIDE 33.2 mmol/L (21.0-32.0); POTASSIUM - SERUM 4.5 mmol/L (3.5-5.1); PROTEIN - SERUM 5.7 g/dL (6.4-8.2)
[2017-09-09 17:02] LABS: NORMAL PLASMA / APTT 32.2 SECONDS (22.8-39.4)
[2017-09-09] MEDS ORDERED: TORADOL10 MG PO (17:26)
[2017-09-09 18:13] VITALS: BP 126/72
== END 2017-09-09 18:15 | disposition home or self-care (01) ==
LOC: D.ER 14:48
PROVIDERS: Family Medicine
DX: S70.01XA Contusion of right hip, initial encounter (principal); S80.01XA Contusion of right knee, initial encounter; W10.9XXA Fall (on) (from) unspecified stairs and steps, initial encounter; Y93.89 Activity, other specified; Y92.019 Unspecified place in single-family (private) house as the place of occurrence of the external cause; E11.9 Type 2 diabetes mellitus without complications; I10 Essential (primary) hypertension; K21.9 Gastro-esophageal reflux disease without esophagitis; Z86.79 Personal history of other diseases of the circulatory system

== ENCOUNTER → 2017-11-23 09:56 | Outpatient (CLI) | payer MEDICARE ==
[2017-09-09 15:05] VITALS: BMI 35.6
[~2017-11-23 09:56] MED LIST changes: +TORADOL10 MG PO
== END | disposition home or self-care (01) ==
LOC: D.US 09:56
DX: I65.23 Occlusion and stenosis of bilateral carotid arteries (principal)

== ENCOUNTER → 2018-03-23 13:22 | Outpatient (CLI) | payer MEDICARE ==
[2017-09-09 15:05] VITALS: BMI 35.6
== END | disposition home or self-care (01) ==
LOC: D.US 13:22 → D.NM 14:30
DX: R79.1 Abnormal coagulation profile (principal)

== ENCOUNTER 2018-06-24 08:10 | Inpatient (IN) | payer MEDICARE ==
[~2018-06-24] VITALS: Ht 147.3 cm; Wt 70.3 kg
[2018-06-24] MEDS ORDERED: METOLAZONE5 MG PO (08:26)
[2018-06-24] MEDS ORDERED: PERCOCET 10-321 EAC1 PO (08:30)
[2018-06-24] MEDS ORDERED: TRAZODONE HCL150 MG PO (08:31)
[2018-06-24] MEDS ORDERED: ELIQUIS5 MG PO (08:33)
[2018-06-24 09:27] LABS: BASOPHILS 0.1 % (0-2); EOSINOPHILS 1.8 % (0-7); HEMATOCRIT 33.5 % (36.0-48.0); IMMATURE GRANULOCYTES 0.4 % (0-5); MCH 28.7 pg (26.0-34.0); MCHC 32.8 g/dL (31.0-37.0); MCV 87.5 fL (80.0-100.0); MEAN PLATELET VOLUME 9.5 fL (7.4-10.4); MONOCYTES 13.1 % (2-11); NEUTROPHILS 70.6 % (40-80); PLATELET COUNT 222 10x3/uL (130-400); RBC 3.83 10x6/uL (4.00-5.40); RDW 13.8 % (11.5-14.5); WBC 7.8 10x3/uL (4.8-10.8)
[2018-06-24 09:38] LABS: ALBUMIN 2.8 g/dL (3.4-5.0); BILIRUBIN - TOTAL 0.31 mg/dL (0.2-1.3); CREATININE - SERUM 2.8 mg/dL (0.6-1.3); PROTEIN - SERUM 5.8 g/dL (6.4-8.2)
--- NOTE | 2018-06-24 09:50 | NUR ---
BULKY DRESSING APPLIED TO R ANKLE PER EDP.
--- NOTE | 2018-06-24 10:50 | MORECARE ---
CASE MANAGEMENT DISCHARGE SUMMARY PATIENT: MICHELLE MEDRANO UNIT: [id number] ADM DATE: 06/24/18 AGE: 83 : 33 SEX: F ROOM/BED: D.2233 AUTHOR: DESEAN MONTELONGO PHYSICIAN: REFERRING PHYSICIAN: REBECCA LAI DO DATE OF SERVICE: 06/24/18 Discharge Plan Patient Name: MICHELLE MEDRANO [facility] : 1935 Planned Disposition: Inpatient Rehab Facility Anticipated Discharge Date: 06/28/18 Discharge Date: Expected LOS: 4 Initial Reviewer: [email or web address] Initial Review Date: 06/24/2018 Generated: 06/24/18 11:50 am DCPIA - Discharge Planning Initial Assessment Updated by [email or web address]: Amelia Conley on 06/24/18 10:46 am * Is the patient Alert and Oriented? Yes * How many steps to enter\exit or inside your home? None/Ramp * PCP Dr. Jaycob Navarro * Pharmacy [facility] [address]/[facility] * Preadmission Environment Home with Family * ADLs Partial Dependent * Partial ADLs (Assistance needed) Bathing Dressing * Equipment Bedside [facility] Bed Nebulizer Oxygen Rolling Walker Shower Chair * List name and contact numbers for known caregivers / representatives who currently or will assist patient after discharge: Jackie Zaidi - daughter - [phone] * Verbal permission to speak to the caregivers and representatives has been obtained from the patient. Yes * Community resources currently utilized None * Additional services required to return to the preadmission environment? Yes * Can the patient safely return to the preadmission environment? Yes * Has this patient been hospitalized within the prior 30 days at any hospital? No Patient Name: MICHELLE MEDRANO Page 21805 at 1050 All edits/amendments must be made on the electronic document DICTATION DATE: 06/24/181048 INTERNAL GRINDING MACHINE OPERATOR: SILVIA 06/24/181048 RPT#: [id number] DC DATE: STATUS: ADM IN [facility] [address] [place] [address] END OF REPORT
--- NOTE | 2018-06-24 11:00 | MORECARE ---
CASE MANAGEMENT DISCHARGE SUMMARY PATIENT: MICHELLE MEDRANO UNIT: [id number] ADM DATE: 06/24/18 AGE: 83 : 33 SEX: F ROOM/BED: D.2233 AUTHOR: JAYDADOC PHYSICIAN: REFERRING PHYSICIAN: REBECCA LAI DO DATE OF SERVICE: 06/24/18 Discharge Plan Patient Name: MICHELLE MEDRANO Facility: [facility]:[place] : 1935 Planned Disposition: Inpatient Rehab Facility Anticipated Discharge Date: 06/28/18 Discharge Date: Expected LOS: 4 Initial Reviewer: [email or web address] Initial Review Date: 06/24/2018 Generated: 06/24/18 12:00 pm DCP- Discharge Planning Updated by [email or web address]: Amelia Conley on 06/24/18 9:[address] Patient Name: MICHELLE MEDRANO Admission Status: ER Accout number: [id number] Admission Date: 06-24-2018 : 1935 Admission Diagnosis: Attending: REBECCA LAI Current LOS: 1 Anticipated DC Date: 06-28-2018 Planned Disposition: Inpatient Rehab Facility Primary Insurance: [employer] CHOICE PPO MCR ADVANT Discharge Planning Comments: EMERGENCY CONTACTS: Jackie Zaidi - daughter - [phone] CM met with patient and her daughter, Jackie to complete initial dc planning assessment. CM educated patient on the CM role and verbal consent given by patient to complete assessment. Patient lives at home with her daughter. At discharge patient's daughter would like for her to go to Inpatient rehab either here or [facility]. If she is not approved for [place] rehab her daughter said home with home health. They have used [facility] in the past and would like to use them again with second choice of [facility]. YAW signed by patient's daughter for both [place] Rehabs, and both Home Health agencies. Signed copies of YAW forms placed on hospital chart and signed forms also given to patient's daughter. Jackie said her mother will never see the inside of a group home as long as she can help it. Patient's denied further known discharge needs at this time. CM will continue to follow and will assist as needed with dc plans/needs. Superintendent Institution: Amelia Conley RN, [facility] DCPIA - Discharge Planning Initial Assessment Updated by [email or web address]: Amelia Conley on 06/24/18 10:46 am * Is the patient Alert and Oriented? Yes * How many steps to enter\exit or inside your home? None/Ramp * PCP Dr. Jaycob Navarro * Pharmacy [facility] on [address] * Preadmission Environment Home with Family * ADLs Partial Dependent * Partial ADLs (Assistance needed) Bathing Dressing * Equipment Bedside [facility] Bed Nebulizer Oxygen Rolling Walker Shower Chair * List name and contact numbers for known caregivers / representatives who currently or will assist patient after discharge: Jackie Zaidi - daughter - [phone] * Verbal permission to speak to the caregivers and representatives has been obtained from the patient. Yes * Community resources currently utilized None * Additional services required to return to the preadmission environment? Yes * Can the patient safely return to the preadmission environment? Yes * Has this patient been hospitalized within the prior 30 days at any hospital? No Last DP export: 06/24/18 9:50 a Patient Name: MICHELLE MEDRANO Page 78930 at 1100 All edits/amendments must be made on the electronic document DICTATION DATE: 06/24/18 105 EYEGLASS LENS GENERATOR: SILVIA 06/24/18 105 RPT#: [id number] [place] DATE: STATUS: ADM IN [facility] [address] [place] [address] END OF REPORT
[2018-06-24 11:48] VITALS: BP 181/83; BMI 32.4
--- NOTE | 2018-06-24 17:46 | NUR ---
LYING IN BED,WITHOUT DISTRESS.PAIN MEDS ORDERED PER MAR.FAMILY AT BEDSIDE.
[2018-06-24 17:47] VITALS: BP 144/57
[2018-06-24 20:00] VITALS: BP 137/53
[2018-06-25] VITALS: BP 164/62
--- NOTE | 2018-06-25 03:51 | NUR ---
PT IN BED IN LOW FOWLERS POSITION. ALERT AND ORIENTED X4. RESPIRATIONS EVEN AND UNLABORED. VS STABLE AND AFEBRILE. NO VISUAL CUES OF DISTRESS NOTED. DENIES ANY OTHER NEEDS AT THIS TIME. BED LOW, SIDE RAILS UP X2. CALL LIGHT IN REACH. WILL CONTINUE TO MONITOR.
[2018-06-25 04:00] VITALS: BP 161/76
[2018-06-25 06:32] LABS: BASOPHILS 0.1 % (0-2); EOSINOPHILS 4.7 % (0-7); HEMATOCRIT 29.8 % (36.0-48.0); HEMOGLOBIN 9.6 g/dL (12-16); IMMATURE GRANULOCYTES 0.4 % (0-5); LYMPHOCYTES 23.3 % (15-50); MCH 28.4 pg (26.0-34.0); MCHC 32.2 g/dL (31.0-37.0); MCV 88.2 fL (80.0-100.0); MEAN PLATELET VOLUME 9.9 fL (7.4-10.4); MONOCYTES 15.2 % (2-11); NEUTROPHILS 56.3 % (40-80); PLATELET COUNT 211 10x3/uL (130-400); RBC 3.38 10x6/uL (4.00-5.40); RDW 14.1 % (11.5-14.5)
[2018-06-25 06:36] LABS: ANION GAP 9.9 mmol/L (8-16); CALCIUM 8.3 mg/dL (8.5-10.1); CREATININE - SERUM 2.4 mg/dL (0.6-1.3); MAGNESIUM - SERUM 1.3 mg/dL (1.8-2.4)
[2018-06-25 06:37] LABS: POTASSIUM - SERUM 3.9 mmol/L (3.5-5.1)
[2018-06-25 07:59] VITALS: BP 185/85
--- NOTE | 2018-06-25 08:00 | NUR ---
ASSESSMENT PER FLOW SHEET. PT IS WITHOUT DISTRESS.FALL PREVENTION IN PLACE WITH WILNER ON AND WORKING.MONITOR FOR NEEDS.FAMILY AT BEDSIDE
--- NOTE | 2018-06-25 12:50 | NUR ---
Rehab Prescreening Consult recieved and the chart has been reviewed. She is [facility] managed MCR which will require a preauth. All information will be submitted to [facility] for their review. Janice Mireles RN Clinical Liaison, Rehab
--- NOTE | 2018-06-25 12:56 | NUR ---
16 [place] SNOW CATHETER INSERTED USING FABRIC STRETCHER.150CC OF CLEAR URINE RETURNED IN SNOW BAG.
[2018-06-25 12:59] VITALS: BP 149/64
[2018-06-25 13:45] VITALS: Ht 147.3 cm; Wt 70.3 kg
--- NOTE | 2018-06-25 14:58 | MORECARE ---
CASE MANAGEMENT DISCHARGE SUMMARY PATIENT: MICHELLE MEDRANO UNIT: [id number] ADM DATE: 06/24/18 AGE: 83 : 33 SEX: F ROOM/BED: D.2233 AUTHOR: DESEAN MONTELONGO PHYSICIAN: REFERRING PHYSICIAN: REBECCA LAI DO DATE OF SERVICE: 06/25/18 Discharge Plan Patient Name: MICHELLE MEDRANO Facility: [facility]:[place] : 1935 Planned Disposition: Inpatient Rehab Facility Anticipated Discharge Date: 06/28/18 Discharge Date: Expected LOS: 4 Initial Reviewer: [email or web address] Initial Review Date: 06/24/2018 Generated: 06/25/18 3:58 pm Comments DCP- Discharge Planning Updated by [email or web address]: Lisa Leone on 06/25/18 1:[address] Spoke with patient about skilled facilities. I informed her that her insurance will require pre authorization for inpatient rehab or skilled facility. She states that she would be agreeable to go to a skilled facility and asks me to call her daughter, Cheryl, and ask her which one she should go to. I called her daughter and informed her that PT and OT both recommend a skilled facility and her insurance company would probably deny inpatient rehab and refer her to a skilled facility. Jackie states that she is going to call the [employer] plate take out worker and see if she can get inpatient rehab approved. I informed Jackie that there are certain criteria for inpatient rehab to be approved. Jackie states she does not want to chose a skilled facility at this time, she wants to see if insurance will approve inpatient rehab. CM will continue to follow and assist with discharge planning/needs. DCP- Discharge Planning Updated by [email or web address]: Amelia Conley on 06/24/18 9:[address] Patient Name: MICHELLE MEDRANO Admission Status: ER Accout number: [id number] Admission Date: 06-24-2018 : 1935 Admission Diagnosis: Attending: REBECCA LAI Current LOS: 1 Anticipated DC Date: 06-28-2018 Planned Disposition: Inpatient Rehab Facility Primary Insurance: [employer] CHOICE PPO MCR ADVANT Discharge Planning Comments: EMERGENCY CONTACTS: Jackie Zaidi - daughter - [phone] CM met with patient and her daughter, Jackie to complete initial dc planning assessment. CM educated patient on the CM role and verbal consent given by patient to complete assessment. Patient lives at home with her daughter. At discharge patient's daughter would like for her to go to Inpatient rehab either here or [facility]. If she is not approved for [place] rehab her daughter said home with home health. They have used [facility] in the past and would like to use them again with second choice of [facility]. YAW signed by patient's daughter for both [place] Rehabs, and both Home Health agencies. Signed copies of YAW forms placed on hospital chart and signed forms also given to patient's daughter. Jackie said her mother will never see the inside of a custodial as long as she can help it. Patient's denied further known discharge needs at this time. CM will continue to follow and will assist as needed with dc plans/needs. Email Administrator: Amelia Conley RN, [facility] DCPIA - Discharge Planning Initial Assessment Updated by [email or web address]: Amelia Conley on 06/24/18 10:46 am * Is the patient Alert and Oriented? Yes * How many steps to enter\exit or inside your home? None/Ramp * PCP Dr. Jaycob Navarro * Pharmacy [facility] on [address]/[facility] * Preadmission Environment Home with Family * ADLs Partial Dependent * Partial ADLs (Assistance needed) Bathing Dressing * Equipment Bedside [facility] Bed Nebulizer Oxygen Rolling Walker Shower Chair * List name and contact numbers for known caregivers / representatives who currently or will assist patient after discharge: Jackie Zaidi - daughter - [phone] * Verbal permission to speak to the caregivers and representatives has been obtained from the patient. Yes * Community resources currently utilized None * Additional services required to return to the preadmission environment? Yes * Can the patient safely return to the preadmission environment? Yes * Has this patient been hospitalized within the prior 30 days at any hospital? No Last DP export: 06/24/18 10:00 a Patient Name: MICHELLE MEDRANO Page 79954 at 4321 All edits/amendments must be made on the electronic document DICTATION DATE: 06/25/181457 BRAKE REPAIRER HYDRAULIC: SILVIA 06/25/181457 RPT#: [id number] DC DATE: STATUS: ADM IN [facility] [address] [place] [address] END OF REPORT
[2018-06-25 16:03] VITALS: BP 145/71
--- NOTE | 2018-06-25 16:05 | NUR ---
REHAB PRESCREENING Rehab referral received and chart reviewed. Ms. Banerjee has [employer] as her insurance provider which requires a prior authorization. I will submit her clinical information to begin auth. This patient will need to ambulate and be willing and able to participate in the required 3 hours of therapy. Rehab will follow for improved gait and will update case management of authorization status. Thank you for this referral! [place], SCIENTIFIC SYSTEMS ANALYST Rehab PD
[2018-06-25 19:56] VITALS: BP 144/62
--- NOTE | 2018-06-25 21:30 | NUR ---
OT NOTE: PT COMPLETED POSITIONING OF UES WITH MAX A. PT COMPLETED BED MOB WITH MAX A. PT COMPLETED SIMPLE HYGIENE TASK WITH MOD/MAX A. PT IS VERY WEAK AND REQUIRED EXTENSIVE ASSIST WITH FUNCTIONAL ACTIVITIES SECONDARY TO NWB STATUS. 142/730 THANK YOU, ELI ABREU
[2018-06-26] VITALS: BP 159/72
[2018-06-26 06:00] LABS: BASOPHILS 0.1 % (0-2); EOSINOPHILS 2.8 % (0-7); HEMATOCRIT 30.5 % (36.0-48.0); HEMOGLOBIN 9.9 g/dL (12-16); IMMATURE GRANULOCYTES 0.5 % (0-5); LYMPHOCYTES 16.1 % (15-50); MCH 28.5 pg (26.0-34.0); MCHC 32.5 g/dL (31.0-37.0); MCV 87.9 fL (80.0-100.0); MEAN PLATELET VOLUME 9.8 fL (7.4-10.4); MONOCYTES 9.6 % (2-11); NEUTROPHILS 70.9 % (40-80); PLATELET COUNT 214 10x3/uL (130-400); RBC 3.47 10x6/uL (4.00-5.40); WBC 7.9 10x3/uL (4.8-10.8)
[2018-06-26 06:17] LABS: ANION GAP 8.8 mmol/L (8-16); CALCIUM 8.4 mg/dL (8.5-10.1); CARBON DIOXIDE 32.4 mmol/L (21.0-32.0); MAGNESIUM - SERUM 1.2 mg/dL (1.8-2.4); POTASSIUM - SERUM 4.2 mmol/L (3.5-5.1)
[2018-06-26 08:59] VITALS: BP 180/78
[2018-06-26 14:48] VITALS: BP 142/67
[2018-06-26 17:12] VITALS: BP 131/49
--- NOTE | 2018-06-26 17:48 | NUR ---
PT STATES SHE IS NOT FEELING WELL TODAY AND HAS SLEPT MOST OF THE DAY, STATES SHE IS JUST SICK TO HER STOMACH, VSS, CONTINUE WITH PLAN OF CARE
--- NOTE | 2018-06-26 18:10 | NUR ---
PT C/O LEFT TOE PAIN IN BETWEEN HER TOES. PT REQUESTED CREAM TO ASSIT WITH PAIN. PT JUST HAD PAON MEDICATION ADMINISTERED AT 5PM, WILL CONTINUE WITH PLAN OF CARE
--- NOTE | 2018-06-26 18:45 | NUR ---
I have reviewed this patient and I concur with the Shift Assessment completed by the Licensed Practical Nurse today this shift.
--- NOTE | 2018-06-26 19:15 | NUR ---
RECEIVED CARE FROM DAY NURSE. LYING IN BED WITH EYES CLOSED. RESP EVEN AND UNLABORED. CALL LIGHT AT SIDE. IV INFUSING PER ORDER TO RIGHT FA.
[2018-06-26 19:31] VITALS: BP 138/50
[2018-06-27] VITALS: BP 138/61
--- NOTE | 2018-06-27 00:21 | NUR ---
I have reviewed this patient and I concur with the Shift Assessment completed by the Licensed Practical Nurse today this shift.
[2018-06-27 03:00] VITALS: BP 126/59
[2018-06-27 07:04] LABS: BASOPHILS 0.2 % (0-2); EOSINOPHILS 3.1 % (0-7); HEMATOCRIT 31.5 % (36.0-48.0); HEMOGLOBIN 10.3 g/dL (12-16); IMMATURE GRANULOCYTES 0.3 % (0-5); LYMPHOCYTES 15.5 % (15-50); MCH 28.8 pg (26.0-34.0); MCHC 32.7 g/dL (31.0-37.0); MEAN PLATELET VOLUME 9.7 fL (7.4-10.4); MONOCYTES 10.4 % (2-11); NEUTROPHILS 70.5 % (40-80); PLATELET COUNT 238 10x3/uL (130-400); RBC 3.58 10x6/uL (4.00-5.40); WBC 8.6 10x3/uL (4.8-10.8)
[2018-06-27 07:31] LABS: ANION GAP 8.8 mmol/L (8-16); CALCIUM 8.7 mg/dL (8.5-10.1); CARBON DIOXIDE 32.1 mmol/L (21.0-32.0); CREATININE - SERUM 2.3 mg/dL (0.6-1.3); MAGNESIUM - SERUM 1.3 mg/dL (1.8-2.4); POTASSIUM - SERUM 3.9 mmol/L (3.5-5.1)
--- NOTE | 2018-06-27 07:56 | NUR ---
PT ALERT X 4. BREATH SOUNDS CLEAR BILAT, 2L O2 PER NC. TELEMETRY IN PLACE. IV TO RIGHT FOREARM, PATENT, DRESSING CLEAN DRY AND INTACT. SNOW IN PLACE, URINE CLEAR AND LIGHT YELLOW. BOOT TO RIGHT LEG. SCD TO LEFT LEG. PT REPORTING PAIN OF 6/10, WILL MONITOR. BED LOW, CALL LIGHT IN REACH. NO OTHER NEEDS AT THIS TIME.
[2018-06-27 08:45] VITALS: BP 133/46
[2018-06-27 12:00] VITALS: BP 148/82
[2018-06-27 16:30] VITALS: BP 147/81
--- NOTE | 2018-06-27 19:40 | NUR ---
LYING ON LT SIDE IN BED. ALERT AND ORIENTED X4. RESP EVEN AND NONLABORED. BBS CTA. O2 @ 2L/NC. TELEMETRY SHOWS SR WITH RATE OF 67. DENIES PAIN. SNOW CATH PATENT AND DRAINING CLEAR YELLOW URINE. BOOT NOTED TO RLE. NS WITH 20 MEQ KCL INFUSING @ 10 ML/HR IN RT FOREARM WITHOUT DIFF. NO EDEMA NOTED. SR ELEVATED X2. CL IN REACH. WILNER ALARM IN USE FOR PT SAFETY.
[2018-06-27 20:31] VITALS: BP 114/60
--- NOTE | 2018-06-28 | NUR ---
MEDICATED WITH PERCOCET ORDERED FOR C/O PAIN IN RLE. CL IN REACH. WILNER ALARM ON.
[2018-06-28 04:59] VITALS: BP 133/60
[2018-06-28 05:10] LABS: HEMATOCRIT 31.2 % (36.0-48.0); HEMOGLOBIN 10.5 g/dL (12-16); LYMPHOCYTES 16.4 % (15-50); MCH 29.6 pg (26.0-34.0); MCHC 33.7 g/dL (31.0-37.0); MCV 87.9 fL (80.0-100.0); NEUTROPHILS 72.6 % (40-80); PLATELET COUNT 219 10x3/uL (130-400); RBC 3.55 10x6/uL (4.00-5.40); RDW 13.4 % (11.5-14.5)
[2018-06-28 05:27] LABS: ANION GAP 7.6 mmol/L (8-16); CALCIUM 8.6 mg/dL (8.5-10.1); CARBON DIOXIDE 33.7 mmol/L (21.0-32.0); CREATININE - SERUM 2.2 mg/dL (0.6-1.3); MAGNESIUM - SERUM 1.3 mg/dL (1.8-2.4); POTASSIUM - SERUM 4.3 mmol/L (3.5-5.1)
[2018-06-28] MEDS ORDERED: PERCOCET 5-3251 TAB PO (08:52)
[2018-06-28 09:13] VITALS: BP 143/66
[2018-06-28 13:56] VITALS: BP 98/47
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
[2018-06-28 17:04] VITALS: BP 128/54
--- NOTE | 2018-06-28 19:00 | NUR ---
THE PATIENT WAS LYING IN BED WHEN STAFF ENTERED HER ROOM. BED IS IN THE LOW POSITION WITH SIDERAILS X2 AND CALL LIGHT WITHIN REACH. THE PATIENT WAS EDUCATED ON AND DEMONSTRATED THE USE OF A CALL LIGHT. THE PATIENT APPEARS COMFORTABLE WITH NO QUESTIONS OR CONCERNS AT THIS TIME.
[2018-06-28 20:00] VITALS: BP 118/58
--- NOTE | 2018-06-29 03:31 | NUR ---
THE PATIENT APPEARS TO BE SLEEPING. BED IS IN THE LOW POSITION WITH SIDERAILS X2 AND CALL LIGHT WITHIN REACH. THE PATIENT APPEARS COMFORTABLE.
[2018-06-29 04:00] VITALS: BP 139/50
[2018-06-29 05:10] LABS: BASOPHILS 0.2 % (0-2); HEMATOCRIT 30.7 % (36.0-48.0); HEMOGLOBIN 10.2 g/dL (12-16); IMMATURE GRANULOCYTES 0.6 % (0-5); LYMPHOCYTES 14.1 % (15-50); MCH 28.9 pg (26.0-34.0); MCHC 33.2 g/dL (31.0-37.0); MEAN PLATELET VOLUME 9.8 fL (7.4-10.4); MONOCYTES 9.7 % (2-11); NEUTROPHILS 73.4 % (40-80); PLATELET COUNT 214 10x3/uL (130-400); RBC 3.53 10x6/uL (4.00-5.40); RDW 14.1 % (11.5-14.5); WBC 12.3 10x3/uL (4.8-10.8)
[2018-06-29 05:20] LABS: CALCIUM 9.1 mg/dL (8.5-10.1); CARBON DIOXIDE 30.5 mmol/L (21.0-32.0); CREATININE - SERUM 2.4 mg/dL (0.6-1.3); MAGNESIUM - SERUM 1.5 mg/dL (1.8-2.4); POTASSIUM - SERUM 4.5 mmol/L (3.5-5.1)
--- NOTE | 2018-06-29 08:00 | NUR ---
PT ALERT X 4. BREATH SOUNDS CLEAR BILAT, 2L O2 PER NC. TELEMETRY IN PLACE. IV TO RIGHT FOREARM, PATENT, DRESSING CLEAN DRY AND INTACT. REPORTING NAUSEA AND PAIN OF 10/10, MEDICATED PER ORDERS, WILL MONITOR. BOOT TO RIGHT LEG, SCD TO LEFT LEG. BED LOW, CALL LIGHT IN REACH. NO OTHER NEEDS AT THIS TIME.
[2018-06-29 08:51] VITALS: BP 149/51
[2018-06-29 13:21] VITALS: BP 153/61
--- NOTE | 2018-06-29 13:22 | MORECARE ---
CASE MANAGEMENT DISCHARGE SUMMARY PATIENT: MICHELLE MEDRANO UNIT: [id number] ADM DATE: 06/24/18 AGE: 83 : 33 SEX: F ROOM/BED: D.2233 AUTHOR: DESEAN MONTELONGO PHYSICIAN: REFERRING PHYSICIAN: REBECCA LAI DO DATE OF SERVICE: 06/29/18 Discharge Plan Patient Name: MICHELLE MEDRANO Facility: [facility]:[place] : 1935 Planned Disposition: Inpatient Rehab Facility Anticipated Discharge Date: 06/28/18 Discharge Date: Expected LOS: 4 Initial Reviewer: [email or web address] Initial Review Date: 06/24/2018 Generated: 06/29/18 2:21 pm Comments DCP- Discharge Planning Updated by [email or web address]: Teagan Gama on 06/29/18 12:[address] SPOKE WITH [facility] ABOUT STATUS OF APPROVAL, THEY ARE REQUESTING ADDITIONAL INFORMATION. I HAVE SENT CLINICALS TO [facility]. [facility] SERVED AND EXPLAINED TO PATIENT CM WILL CONTINUE TO FOLLOW AND ASSIST DCP- Discharge Planning Updated by [id number]: Lisa Leone on 06/25/18 1:[address] Spoke with patient about skilled facilities. I informed her that her insurance will require pre authorization for inpatient rehab or skilled facility. She states that she would be agreeable to go to a skilled facility and asks me to call her daughter, Cheryl, and ask her which one she should go to. I called her daughter and informed her that PT and OT both recommend a skilled facility and her insurance company would probably deny inpatient rehab and refer her to a skilled facility. Jackie [facility] if [facility] can get inpatient rehab approved. I informed Jackie that there are certain criteria for inpatient rehab to be approved. Jackie states she does not want to chose a skilled facility at this time, she wants to see if insurance will approve inpatient rehab. CM will continue to follow and assist with discharge planning/needs. DCP- Discharge Planning Updated by [id number]: Amelia Conley on 06/24/18 9:[address] Patient Name: MICHELLE MEDRANO Admission Status: ER Accout number: [id number] Admission Date: 06-24-2018 : 10--1935 Admission Diagnosis: Attending: REBECCA LAI Current LOS: 1 Anticipated DC Date: 06-28-2018 Planned Disposition: Inpatient Rehab Facility Primary Insurance: [employer] CHOICE PPO [facility] ADVANT Discharge Planning Comments: EMERGENCY CONTACTS: Jackie Zaidi - daughter - [phone] CM met with patient and her daughter, Jackie to complete initial dc planning assessment. CM educated patient on the CM role and verbal consent given by patient to complete assessment. Patient lives at home with her daughter. At discharge patient's daughter would like for her to go to Inpatient rehab either here or [facility]. If she is not approved for [place] rehab her daughter said home with home health. They have used [facility] in the past and would like to use them again with second choice of [facility]. YAW signed by patient's daughter for both [place] Rehabs, and both Home Health agencies. Signed copies of YAW forms placed on hospital chart and signed forms also given to patient's daughter. Jackie said her mother will never see the inside of a usp as long as she can help it. Patient's denied further known discharge needs at this time. CM will continue to follow and will assist as needed with dc plans/needs. Caul Puller: Amelia Conley RN, [facility] DCPIA - Discharge Planning Initial Assessment Updated by [email or web address]: Amelia Conley on 06/24/18 10:46 am * Is the patient Alert and Oriented? Yes * How many steps to enter\exit or inside your home? None/Ramp * PCP Dr. Jaycob Navarro * Pharmacy [facility] on [address]/[facility] * Preadmission Environment Home with Family * ADLs Partial Dependent * Partial ADLs (Assistance needed) Bathing Dressing * Equipment Bedside [facility] Bed Nebulizer Oxygen Rolling Walker Shower Chair * List name and contact numbers for known caregivers / representatives who currently or will assist patient after discharge: Jackie Zaidi - daughter - [phone] * Verbal permission to speak to the caregivers and representatives has been obtained from the patient. Yes * Community resources currently utilized None * Additional services required to return to the preadmission environment? Yes * Can the patient safely return to the preadmission environment? Yes * Has this patient been hospitalized within the prior 30 days at any hospital? No External Providers External Provider: [facility] Next Contact Date: Service Request Date: Service Type: Resolution: Reviewer: Comments: Coverage Notice Reviewer: [email or web address] - Teagan Gama Notice Issued Date-Time: 06/29/2018 13:00 Notice Type: IM Discharge Notice Notice Delivered To: Patient Relationship to Patient: Technical Business Analyst Name: Delivery Method: HAND - Hand Delivered Shannon Days: Prior Verbal Notification: Recipient Understood Notice: Yes Recipient Signature: Yes Med Rec Note Co-signed by Attending: Coverage Notice Comment: Last DP export: 06/25/18 1:58 p Patient Name: MICHELLE MEDRANO Page 25101 at 1322 All edits/amendments must be made on the electronic document DICTATION DATE: 06/29/18 132 SEWING MACHINES SALESPERSON: SILVIA 06/29/18 1321 RPT#: [id number] DC DATE: STATUS: ADM IN [facility] [address] [place] [address] END OF REPORT
[2018-06-29 17:52] VITALS: BP 122/66
[2018-06-29 19:53] LABS: APPEARANCE CLEAR (CLEAR); BILIRUBIN NEGATIVE (NEGATIVE); COLOR YELLOW (YELLOW); GLUCOSE NEGATIVE (NEGATIVE); KETONE NEGATIVE (NEGATIVE); NITRITE POSITIVE (NEGATIVE); PROTEIN TRACE mg/dL (NEGATIVE); SPECIFIC GRAVITY 1.005 (1.005-1.020); UROBILINOGEN NORMAL (NORMAL)
[2018-06-29 19:55] LABS: BACTERIA FEW /hpf (NONE SEEN); EPITHELIAL CELLS 0-5 /hpf (0-5); RED CELLS - URINE 0-5 /hpf (0-5); WHITE CELLS - URINE 0-5 /hpf (0-5)
[2018-06-29 20:00] VITALS: BP 125/48
--- NOTE | 2018-06-29 20:24 | NUR ---
OT NOTE: PT COMPLETED TRANSFER WITH MAX A. PT COMPLETED BED MOB WITH MOD A/MAX A. 075/298 THANK YOU, ELI ABREU
--- NOTE | 2018-06-29 20:42 | NUR ---
OT NOTE: BED MOB WITH MOD ASSIST; FEEDING AND GROOMING TASKS WITH SET UP; EOB SITTING WITH SPV ( GOOD TRUNK STRENGTH). () BENI TENORIO, OTR/L
--- NOTE | 2018-06-29 21:45 | NUR ---
RESTING QUEITLY WITH NO DISTRESS NOTED.RESP EVEN AND UNALBORED.WALKING BOOT INTACT TO RLE. TOES PINK AND WARM. NO COMPLAINTS VOICED. CL IN REACH
[2018-06-30 04:22] VITALS: BP 134/51
--- NOTE | 2018-06-30 04:43 | NUR ---
I have reviewed this patient and I concur with the Shift Assessment completed by the Licensed Practical Nurse today this shift.
--- NOTE | 2018-06-30 07:10 | NUR ---
PATIENT RECIEVED RESTING IN BED. LATE STAGES OF OVARIAN CANCER. FAMILY AT SIDE. RESPIRATIONS REGTULAR AND NONLABORED. PAIN CONTROLLED AT THIS TIME.
[2018-06-30 07:15] LABS: BASOPHILS 0.2 % (0-2); EOSINOPHILS 1.9 % (0-7); HEMATOCRIT 30.6 % (36.0-48.0); HEMOGLOBIN 10.1 g/dL (12-16); IMMATURE GRANULOCYTES 0.4 % (0-5); LYMPHOCYTES 9.7 % (15-50); MCH 28.6 pg (26.0-34.0); MCV 86.7 fL (80.0-100.0); MEAN PLATELET VOLUME 9.7 fL (7.4-10.4); MONOCYTES 9.3 % (2-11); NEUTROPHILS 78.5 % (40-80); PLATELET COUNT 223 10x3/uL (130-400); RBC 3.53 10x6/uL (4.00-5.40); RDW 14.1 % (11.5-14.5); WBC 13.1 10x3/uL (4.8-10.8)
--- NOTE | 2018-06-30 07:30 | NUR ---
PATIENT RECIEVED RESTING IN BED, ADMITTED WITH LEFT DISTAL FIBULAR FRACTURE. BOOT IN PLACE. NO NEEDS VOICED
[2018-06-30 07:56] LABS: ANION GAP 12.3 mmol/L (8-16); CALCIUM 8.6 mg/dL (8.5-10.1); CARBON DIOXIDE 30.2 mmol/L (21.0-32.0); CREATININE - SERUM 2.6 mg/dL (0.6-1.3); POTASSIUM - SERUM 4.5 mmol/L (3.5-5.1)
[2018-06-30 09:14] VITALS: BP 112/62
--- NOTE | 2018-06-30 11:47 | NUR ---
INCENTIVE SPIROMETRY GIVEN TO PT AND INSTRUCTED IN USE. ABLE TO PULL 1000 CC X 3. INSTRUCTED PT TO USE X 3 EVERY HOUR WHILE AWAKE. CALL LIGHT IN REACH
[2018-06-30 12:41] VITALS: BP 116/59
--- NOTE | 2018-06-30 12:50 | NUR ---
OT NOTE: PT UP IN CHAIR..NO COMPLAINTS. PERFORMED UE AROM EXS WITH MOD REST BREAKS AND ASSIST WITH L UE DUE TO PAIN ( AUDIBLE CREPITUS NOTED IN L UE). PT REPORTING THAT SHE FELT THOUGH SHE NEEDED TO URINATE BUT COULD NOT..ASSISTED PT WITH HALF STAND TO ADJUST CATHETER DUE KINK IN TUBING. EMPTIED CATH BAG WITH 1100CC..THIS FIXED THE PROBLEM. ATTEMPTED WC PUSH UPS TO STRENGTHEN TRICEPS FOR INCREASED EASE WIHT TRANSFERS, HOWEVER, PT WITH INCREASED PAIN IN L SHOULDER AND TOO WEAK TO PERFORM WITHOUT EXTENSIVE ASSIST. EDUCATION ON POSITIONING WITH ATTEMPTS TO STAND AND TDWB.([id number]/[id number]) BENI TENORIO, OTR/L
--- NOTE | 2018-06-30 17:08 | NUR ---
OT NOTE: COMPLETED GROOMING AND HYGIENE TASKS WITH MIN A. PT COMPLETED SITTING BALANCE TASKS WITH CGA/MIN A. THANK YOU, ELI ABREU
[2018-06-30 17:37] VITALS: BP 129/48
[2018-06-30 20:00] VITALS: BP 147/46
--- NOTE | 2018-06-30 20:17 | NUR ---
LYING QUEITLY WITH NO DISTRESS NOTED. IV TO RIGHT SHOULDER INTACT WITHOUT REDNESS OR EDEMA NOTED. WALKING BOOT INTACT TO RLE. TOES WARM PINK.NO DEFICEITS NOTED. CL IN REACH
--- NOTE | 2018-07-01 00:10 | NUR ---
I have reviewed this patient and I concur with the Shift Assessment completed by the Licensed Practical Nurse today this shift.
[2018-07-01 04:00] VITALS: BP 147/44
[2018-07-01 06:09] LABS: BASOPHILS 0.1 % (0-2); EOSINOPHILS 1.9 % (0-7); HEMATOCRIT 28.3 % (36.0-48.0); HEMOGLOBIN 9.4 g/dL (12-16); IMMATURE GRANULOCYTES 0.5 % (0-5); LYMPHOCYTES 7.2 % (15-50); MCH 28.7 pg (26.0-34.0); MCHC 33.2 g/dL (31.0-37.0); MCV 86.5 fL (80.0-100.0); MEAN PLATELET VOLUME 9.2 fL (7.4-10.4); MONOCYTES 11.5 % (2-11); NEUTROPHILS 78.8 % (40-80); PLATELET COUNT 240 10x3/uL (130-400); RBC 3.27 10x6/uL (4.00-5.40); RDW 13.9 % (11.5-14.5); WBC 12.8 10x3/uL (4.8-10.8)
[2018-07-01 06:18] LABS: ANION GAP 9.2 mmol/L (8-16); CALCIUM 8.8 mg/dL (8.5-10.1); CARBON DIOXIDE 31.6 mmol/L (21.0-32.0); CREATININE - SERUM 2.8 mg/dL (0.6-1.3); POTASSIUM - SERUM 4.8 mmol/L (3.5-5.1)
--- NOTE | 2018-07-01 07:25 | NUR ---
RESTING QUIETLY WITH EYES CLOSED. RESP EVEN,NONLABORED.
--- NOTE | 2018-07-01 08:10 | NUR ---
ASSESSMENT COMPLETE. IV TO R UPPER ARM PATENT. O2 2L NC IN USE. WELDER BOILERMAKER SHOWING SR 74 PER TECH. WALKING BOOT INTACT TO RLE.
[2018-07-01 09:25] VITALS: BP 118/53
--- NOTE | 2018-07-01 11:40 | NUR ---
ULTRAM GIVEN FOR C/O R ANKLE PAIN. SITTING UP IN RECLINER. CALL LIGHT WITHIN REACH.
[2018-07-01 13:43] VITALS: BP 114/40
--- NOTE | 2018-07-01 15:00 | NUR ---
VISITING WITH FAMILY. DENIES ANY NEEDS AT THIS TIME.
--- NOTE | 2018-07-01 15:28 | NUR ---
OT NOTE: PT IN BED; SON AT BEDSIDE. PRACTICED BED MOB INCLUDING ROLLING SIDE TO SIDE AND SUPINE TO SIT WITH MOD ASSIST. CONT TO C/O PAIN IN R ANKLE. SITTING BALANCE GOOD; ROM EXS WITH L UE; ASSISTED PT WITH REPOSITIONING IN BED ON HER R SIDE. PILLOWS IN PLACE BETWEEN KNEES AND ALONG BACKSIDE. BENI TENORIO, OTR/L
--- NOTE | 2018-07-01 16:07 | NUR ---
OT NOTE: PT COMPLETED BED MOB TASKS WITH HIEN A. PT COMPLETED BUE AROM AXS. 8971/[id number] THANK YOU, ELI ABREU
[2018-07-01 17:29] VITALS: BP 108/41
--- NOTE | 2018-07-01 18:00 | NUR ---
RESTING QUIETLY ON LEFT SIDE. DENIES ANY NEEDS AT THIS TIME. CALL LIGHT WITHIN REACH.
[2018-07-01 20:00] VITALS: BP 111/43
--- NOTE | 2018-07-01 20:51 | NUR ---
AWAKE,ALERT.RESP EVEN AND UNALBORED. NO DISTRESS NOTED. IV INFUSING TO RIGHT SHOULDER WITHOUT REDNESS OR EDEMA NOTED. WALKING BOOT INTACT TO RLE. CL IN REACH
[2018-07-02] VITALS: BP 147/56
--- NOTE | 2018-07-02 02:27 | NUR ---
I have reviewed this patient and I concur with the Shift Assessment completed by the Licensed Practical Nurse today this shift.
[2018-07-02 04:00] VITALS: BP 128/50
[2018-07-02 06:33] LABS: BASOPHILS 0.2 % (0-2); EOSINOPHILS 4.2 % (0-7); HEMATOCRIT 27.2 % (36.0-48.0); HEMOGLOBIN 8.9 g/dL (12-16); IMMATURE GRANULOCYTES 0.5 % (0-5); LYMPHOCYTES 11.7 % (15-50); MCH 28.5 pg (26.0-34.0); MCHC 32.7 g/dL (31.0-37.0); MCV 87.2 fL (80.0-100.0); MEAN PLATELET VOLUME 9.2 fL (7.4-10.4); MONOCYTES 11.3 % (2-11); NEUTROPHILS 72.1 % (40-80); PLATELET COUNT 254 10x3/uL (130-400); RBC 3.12 10x6/uL (4.00-5.40); WBC 9.6 10x3/uL (4.8-10.8)
[2018-07-02 06:41] LABS: ANION GAP 7.3 mmol/L (8-16); CALCIUM 9.1 mg/dL (8.5-10.1); CARBON DIOXIDE 32.4 mmol/L (21.0-32.0); CREATININE - SERUM 3.1 mg/dL (0.6-1.3); POTASSIUM - SERUM 4.7 mmol/L (3.5-5.1)
--- NOTE | 2018-07-02 09:00 | NUR ---
ALERT AND ORIENTED WITH IVF INFUSING AT PRESCRIBED RATE. TELEMETRY INTACT SR 84. SCD INTACT. WALKING BOOT INTACT TO RLE. O2 2L N/C. SNOW CATH INTACT. DENIES ANY PAIN OR DISCOMFORT AT THIS TIME.
[2018-07-02 14:08] VITALS: BP 112/42
--- NOTE | 2018-07-02 14:08 | NUR ---
TRAMADOL GIVEN FOR PAIN MANAGEMENT AND WAS ASSIST BACK TO BED PER THERAPY. NO COMPLAINTS NOTED.
--- NOTE | 2018-07-02 14:36 | NUR ---
OT NOTE: BED MOB WITH MOD ASSIST; B UE STRENGTHENING AND ROM EXS..ASSIST REQUIRED FOR L SHOULDER ROM. REPORTS PAIN OF 5/10.. BENI TENORIO, OTR/L
[2018-07-02 17:26] VITALS: BP 104/47
--- NOTE | 2018-07-02 19:15 | NUR ---
RECEIDED CARE FROM DAY NURSE. LYING IN BED ON LEFT SIDE. RIGHT FOOT ELEVATED ON PILLOW. LEFT OUTER FOOT TO ICE. SNOW TO GRAVITY. CALL LIGHT AT SIDE. IV INFUSING TO PATENT RIGHT SHOULDER. REPORTS NO NEEDS AT THIS TIME.
[2018-07-02 20:00] VITALS: BP 156/63
--- NOTE | 2018-07-02 23:44 | NUR ---
DAUGHTER REQUEST A SHOT TO HER LEFT SHOULDER. "THE ONE SHE GETS FROM DR FIELD."
[2018-07-03] VITALS: BP 151/73
[2018-07-03 04:00] VITALS: BP 146/65
--- NOTE | 2018-07-03 05:09 | NUR ---
I have reviewed this patient and I concur with the Shift Assessment completed by the Licensed Practical Nurse today this shift.
[2018-07-03 05:47] LABS: BASOPHILS 0.1 % (0-2); EOSINOPHILS 3.4 % (0-7); HEMATOCRIT 28.8 % (36.0-48.0); HEMOGLOBIN 9.4 g/dL (12-16); LYMPHOCYTES 12.7 % (15-50); MCH 28.2 pg (26.0-34.0); MCHC 32.6 g/dL (31.0-37.0); MCV 86.5 fL (80.0-100.0); MEAN PLATELET VOLUME 8.9 fL (7.4-10.4); MONOCYTES 10.4 % (2-11); NEUTROPHILS 72.4 % (40-80); PLATELET COUNT 301 10x3/uL (130-400); RBC 3.33 10x6/uL (4.00-5.40); RDW 13.9 % (11.5-14.5); WBC 8.9 10x3/uL (4.8-10.8)
[2018-07-03 06:21] LABS: ANION GAP 12.4 mmol/L (8-16); CALCIUM 8.9 mg/dL (8.5-10.1); CARBON DIOXIDE 28.6 mmol/L (21.0-32.0); CREATININE - SERUM 2.7 mg/dL (0.6-1.3)
--- NOTE | 2018-07-03 08:00 | NUR ---
ALERT AND ORIENTED WITH TELEMETRY INTACT. BOOT SPINT TO RT. FOOT INTACT. SNOW CAT WITH QUIN URINE NOTED. OVF INFUSING AT PRESCRIBED RATE. O2 2L N/C. FAMILY PRESENT AND ENCOURAGED TO USE CALL LIGHT FOR ASSIST. SPLINT REMOVED WITH SKIN INTACT WITH CAP REFILL <3 SEC
[2018-07-03 08:45] VITALS: BP 165/71
[2018-07-03 12:58] VITALS: BP 153/53
[2018-07-03 17:42] VITALS: BP 147/60
--- NOTE | 2018-07-03 19:15 | NUR ---
RECEIVED CARE FROM DAY NURSE. LYING IN BED WITH EYES CLOSED. RESP EVEN AND UNLABORED. CALL LIGHT AT SIDE. IV INFUSING PER ORDER TO RIGHT SHOULDER.
[2018-07-03 19:53] VITALS: BP 139/63
[2018-07-04] VITALS: BP 182/77
--- NOTE | 2018-07-04 03:14 | NUR ---
I have reviewed this patient and I concur with the Shift Assessment completed by the Licensed Practical Nurse today this shift.
[2018-07-04 04:00] VITALS: BP 154/67
--- NOTE | 2018-07-04 06:00 | NUR ---
CDT ENTERED ON THIS PATIENT BY MISTAKE. SPOKE WITH LAB. ORDER AND RESULTS REMOVED FROM THIS PATIENT. CDT WAS NOT NEEDED ON THIS PATIENT.
[2018-07-04 06:36] LABS: BASOPHILS 0.2 % (0-2); EOSINOPHILS 4.2 % (0-7); HEMATOCRIT 29.3 % (36.0-48.0); HEMOGLOBIN 9.5 g/dL (12-16); LYMPHOCYTES 10.6 % (15-50); MCH 28.4 pg (26.0-34.0); MCHC 32.4 g/dL (31.0-37.0); MCV 87.5 fL (80.0-100.0); MEAN PLATELET VOLUME 8.9 fL (7.4-10.4); MONOCYTES 10.7 % (2-11); NEUTROPHILS 73.3 % (40-80); PLATELET COUNT 296 10x3/uL (130-400); RBC 3.35 10x6/uL (4.00-5.40); RDW 13.9 % (11.5-14.5); WBC 8.9 10x3/uL (4.8-10.8)
[2018-07-04 06:53] LABS: ANION GAP 12.2 mmol/L (8-16); CARBON DIOXIDE 26.1 mmol/L (21.0-32.0); CREATININE - SERUM 2.3 mg/dL (0.6-1.3); POTASSIUM - SERUM 4.3 mmol/L (3.5-5.1)
[2018-07-04 08:13] VITALS: BP 158/73
--- NOTE | 2018-07-04 09:15 | NUR ---
PT ALERT X 4. [place]. BREATH SOUNDS CLEAR BILAT. TELEMETRY IN PLACE. IV TO RIGHT FOREARM, PATENT, DRESSING CDI. BOOT TO RIGHT LEG, SCD TO LEFT. SNOW IN PLACE. FAMILY AT BEDSIDE. BED LOW, CALL LIGHT IN REACH. NO OTHER NEEDS AT THIS TIME.
--- NOTE | 2018-07-04 11:42 | NUR ---
NIGHT NURSE STATED THAT CDIFF LAB IS RESULTED ON WRONG PATIENT. THE CDIFF RESULTS ARE SUPPOSE TO BE RESULTED ON 2233.
[2018-07-04 13:44] VITALS: BP 112/54
--- NOTE | 2018-07-04 14:35 | NUR ---
OT NOTE: PRACTICED TRANSFER WITH WALKER AND PHYS THERAPY ASSIST. SIT TO STAND IWTH MOD ASSIST; PT ABLE TO TAKE SEVERAL STEPS AND TRANSFER TO BED.; MAX ASSIST GETTING FEET BACK ON TO BED; PRACTICED BRIDGING AND SCOOTING BOTTOM WITH VERBAL AND TACTILE CUES. ROLLING SIDE TO SIDE WITH MIN ASSIST. PT DOING BETTER TODAY. BENI TENORIO, OTR/L
[2018-07-04 17:47] VITALS: BP 134/70
--- NOTE | 2018-07-04 19:20 | NUR ---
RECEIVED REPORT, ASSUMED CARE, A&O, DENIES NEEDS, CALL LIGHT IN REACH, BED LOWEST POSITION, WILL CONTINUE TO MONITOR
[2018-07-04 20:00] VITALS: BP 150/62
[2018-07-05] VITALS: BP 148/71
[2018-07-05 03:00] VITALS: BP 115/85
--- NOTE | 2018-07-05 05:03 | NUR ---
I have reviewed this patient and I concur with the Shift Assessment completed by the Licensed Practical Nurse today this shift.
[2018-07-05 05:13] LABS: BASOPHILS 0.2 % (0-2); EOSINOPHILS 3.1 % (0-7); HEMOGLOBIN 9.3 g/dL (12-16); LYMPHOCYTES 15.1 % (15-50); MCH 28.2 pg (26.0-34.0); MCHC 32.1 g/dL (31.0-37.0); MCV 87.9 fL (80.0-100.0); MEAN PLATELET VOLUME 8.6 fL (7.4-10.4); MONOCYTES 12.3 % (2-11); NEUTROPHILS 68.3 % (40-80); PLATELET COUNT 302 10x3/uL (130-400); RDW 13.8 % (11.5-14.5); WBC 9.1 10x3/uL (4.8-10.8)
[2018-07-05 05:54] LABS: ANION GAP 8.9 mmol/L (8-16); CALCIUM 9.1 mg/dL (8.5-10.1); CARBON DIOXIDE 29.9 mmol/L (21.0-32.0); CREATININE - SERUM 1.9 mg/dL (0.6-1.3); POTASSIUM - SERUM 4.8 mmol/L (3.5-5.1)
[2018-07-05 08:15] VITALS: BP 175/74
--- NOTE | 2018-07-05 09:11 | NUR ---
MORNING ASSESSMENT COMPLETE. SEE ASSESSMENT FLOWSHEET FOR FURTHER DETAILS. PT LYING IN BED AAO X4 TO PERSON, PLACE, TIME, AND SITUATION. DENIES NEEDS AT THIS TIME. CL IN REACH. SIDE RAILS UP X3 FOR PT SAEFTY. BED IN LOWEST POSITION. DAUGHTER AT BEDSIDE.
--- NOTE | 2018-07-05 09:25 | MORECARE ---
CASE MANAGEMENT DISCHARGE SUMMARY PATIENT: MICHELLE MEDRANO UNIT: [id number] ADM DATE: 06/24/18 AGE: 83 : 33 SEX: F ROOM/BED: D.2233 AUTHOR: JAYDA,DOC PHYSICIAN: REFERRING PHYSICIAN: REBECCA LAI DO DATE OF SERVICE: 07/05/18 Discharge Plan Patient Name: MICHELLE MEDRANO Facility: [facility]:[place] : 1935 Planned Disposition: Inpatient Rehab Facility Anticipated Discharge Date: 06/28/18 Discharge Date: Expected LOS: 4 Initial Reviewer: [email or web address] Initial Review Date: 06/24/2018 Generated: 07/05/18 10:25 am Comments DCP- Discharge Planning Updated by [id number]: Lisa Leone on 07/05/18 8:[address] Updated clinical faxed to [place]. CM will continue to follow and assist with discharge planning/needs. DCP- Discharge Planning Updated by [email or web address]: Teagan Gama on 06/29/18 12:[address] SPOKE WITH [facility] ABOUT STATUS OF APPROVAL, THEY ARE REQUESTING ADDITIONAL INFORMATION. I HAVE SENT CLINICALS TO [facility] SERVED AND EXPLAINED TO PATIENT CM WILL CONTINUE TO FOLLOW AND ASSIST DCP- Discharge Planning Updated by [email or web address]: Lisa Leone on 06/25/18 1:[address] Spoke with patient about skilled facilities. I informed her that her insurance will require pre authorization for inpatient rehab or skilled facility. She states that she would be agreeable to go to a skilled facility and asks me to call her daughter, Cheryl, and ask her which one she should go to. I called her daughter and informed her that PT and OT both recommend a skilled facility and her insurance company would probably deny inpatient rehab and refer her to a skilled facility. Jackie states that [facility] daycare worker and see if she can get inpatient rehab approved. I informed Jackie that there are certain criteria for inpatient rehab to be approved. Jackie states she does not want to chose a skilled facility at this time, she wants to see if insurance will approve inpatient rehab. CM will continue to follow and assist with discharge planning/needs. DCP- Discharge Planning Updated by [id number]: Ameila Conley on 06/24/18 9:[address] Patient Name: MICHELLE MEDRANO Admission Status: ER Accout number: [id number] Admission Date: 06-24-2018 : 1935 Admission Diagnosis: Attending: REBECCA LAI Current LOS: 1 Anticipated DC Date: 06-28-2018 Planned Disposition: Inpatient Rehab Facility Primary Insurance: HU[employer]NA CHOICE PPO MCR ADVANT Discharge Planning Comments: EMERGENCY CONTACTS: Jackie Zaidi - daughter - [phone] CM met with patient and her daughter, Jackie to complete initial dc planning assessment. CM educated patient on the CM role and verbal consent given by patient to complete assessment. Patient lives at home with her daughter. At discharge patient's daughter would like for her to go to Inpatient rehab either here or [facility]. If she is not approved for [place] rehab her daughter said home with home health. They have used [facility] in the past and would like to use them again with second choice of [place]. YAW signed by patient's daughter for both [place] Rehabs, and both Home Health agencies. Signed copies of YAW forms placed on hospital chart and signed forms also given to patient's daughter. Jackie said her mother will never see the inside of a [place] health care facility as long as she can help it. Patient's denied further known discharge needs at this time. CM will continue to follow and will assist as needed with dc plans/needs. Field Tax Auditor: Amelia Conley RN, [facility] DCPIA - Discharge Planning Initial Assessment Updated by [email or web address]: Amelia Conley on 06/24/18 10:46 am * Is the patient Alert and Oriented? Yes * How many steps to enter\exit or inside your home? None/Ramp * PCP Dr. Jaycob Navarro * Pharmacy [facility] on [address] * Preadmission Environment Home with Family * ADLs Partial Dependent * Partial ADLs (Assistance needed) Bathing Dressing * Equipment Bedside [facility] Bed Nebulizer Oxygen Rolling Walker Shower Chair * List name and contact numbers for known caregivers / representatives who currently or will assist patient after discharge: Jackie Zaidi - daughter - [phone] * Verbal permission to speak to the caregivers and representatives has been obtained from the patient. Yes * Community resources currently utilized None * Additional services required to return to the preadmission environment? Yes * Can the patient safely return to the preadmission environment? Yes * Has this patient been hospitalized within the prior 30 days at any hospital? No Coverage Notice Reviewer: [email or web address] Ethan Gama Notice Issued Date-Time: 06/29/2018 13:00 Notice Type: IM Discharge Notice Notice Delivered To: Patient Relationship to Patient: M[employer] Acquis[employer] Banker Name: Delivery Method: HAND - Hand Delivered Shannon Days: Prior Verbal Notification: Recipient Understood Notice: Yes Recipient Signature: Yes Med Rec Note Co-signed by Attending: Coverage Notice Comment: Last DP export: 06/29/18 12:21 p Patient Name: MICHELLE MEDRANO Page [id number] at 0925 All edits/amendments must be made on the electronic document DICTATION DATE: 07/05/18923 SAFETY TRAINER: SILVIA 07/05/18923 RPT#: [id number] DC DATE: STATUS: ADM IN [facility] [address] [place] [address] END OF REPORT
--- NOTE | 2018-07-05 14:40 | NUR ---
NUTRITION F/U CHART REVIEWED, PT VISIT. TOLERATING AHA DIET WITH CHOPPED FOODS. PO INTAKE HAS IMPROVED TO ~ 75% RECENT MEALS. RD FOLLOWING
--- NOTE | 2018-07-05 14:53 | NUR ---
OT NOTE: PT DOING WELL..ABLE TO PERFORM FEEDING AND SIMPLE GROOMING TASKS WHILE SITTING UP IN CHAIR. PERFORMED SIT TO STAND WITH MOD ASSIST; ABLE TO TRANSFER WITH ASSIST X 2, BUT NO COMPLAINTS OF PAIN. ATTEMPTED TO SCOOT BACK ON BED , HOWEVER, BED IS TOO HIGH. BED MOB WITH MAX ASSIST WITH LE TO GET FEET BACK ON BED. ROLLING SIDE TO SIDE WITH MIN ASSIST; ECUCATION ON BENDING KNEES AND SCOOTING UP IN BED/ SCOOTING HIPS FROM R TO L. PT DOING WELL. MOBILITY STILL DIFFICULT DUE TO PAIN IN L UE AND INABILITY TO FULLY WT BEAR IN R LE. BENI TENORIO, OTR/L
[2018-07-05 17:27] VITALS: BP 154/71
[2018-07-05 20:00] VITALS: BP 158/94
[2018-07-06] VITALS: BP 154/64
--- NOTE | 2018-07-06 02:00 | NUR ---
PT REPORTS PAIN/ DISCOMFORT TO HIP AND BOTTOM, REQUESTS TO BE TURNED,
--- NOTE | 2018-07-06 03:45 | NUR ---
PT COMPLAINS OF PAIN TO BOTTOM, RE-SITUATED IN BED. P-T IS AWARE OF GUIDLINES TO KEEP AFFECTED ANKLE STRAIGHT AND NEED TO BE TURNED OFTEN. WILL CONTINUE TO MONITOR.
[2018-07-06 05:22] LABS: BASOPHILS 0.1 % (0-2); EOSINOPHILS 3.9 % (0-7); HEMATOCRIT 28.3 % (36.0-48.0); HEMOGLOBIN 9.2 g/dL (12-16); IMMATURE GRANULOCYTES 1.2 % (0-5); MCH 28.5 pg (26.0-34.0); MCHC 32.5 g/dL (31.0-37.0); MCV 87.6 fL (80.0-100.0); MEAN PLATELET VOLUME 8.3 fL (7.4-10.4); MONOCYTES 11.7 % (2-11); NEUTROPHILS 70.1 % (40-80); PLATELET COUNT 278 10x3/uL (130-400); RBC 3.23 10x6/uL (4.00-5.40); RDW 13.8 % (11.5-14.5); WBC 8.2 10x3/uL (4.8-10.8)
[2018-07-06 05:30] VITALS: BP 147/70
[2018-07-06 06:13] LABS: ALBUMIN 2.2 g/dL (3.4-5.0); ANION GAP 8.6 mmol/L (8-16); BILIRUBIN - TOTAL 0.2 mg/dL (0.2-1.3); CALCIUM 8.8 mg/dL (8.5-10.1); CARBON DIOXIDE 28.1 mmol/L (21.0-32.0); CREATININE - SERUM 1.8 mg/dL (0.6-1.3); POTASSIUM - SERUM 4.7 mmol/L (3.5-5.1)
--- NOTE | 2018-07-06 07:28 | NUR ---
I have reviewed this patient and I concur with the Shift Assessment completed by the Licensed Practical Nurse today this shift.
--- NOTE | 2018-07-06 09:00 | NUR ---
PATIENT SITTING UP IN BED EATING BREAKFAST WITH NO COMPLAINTS OR SIGNS OF DISTRESS. CAll LIGHT WITHIN REACH.
[2018-07-06] MEDS ORDERED: FLORAJEN3 CAPS460 MG PO (09:24)
[2018-07-06] MEDS ORDERED: BACTRIM 400/80 MG TA PO (09:24)
[2018-07-06] MEDS ORDERED: NYSTATIN1 PWD TOPICAL (09:24)
--- NOTE | 2018-07-06 09:33 | MORECARE ---
CASE MANAGEMENT DISCHARGE SUMMARY PATIENT: MICHELLE MEDRANO UNIT: [id number] ADM DATE: 06/24/18 AGE: 83 : 33 SEX: F ROOM/BED: D.2233 AUTHOR: JAYDA,DOC PHYSICIAN: REFERRING PHYSICIAN: REBECCA LAI DO DATE OF SERVICE: 07/06/18 Discharge Plan Patient Name: MICHELLE MEDRANO Facility: [facility]:[place] : 1935 Planned Disposition: Inpatient Rehab Facility Anticipated Discharge Date: 06/28/18 Discharge Date: Expected LOS: 4 Initial Reviewer: [email or web address] Initial Review Date: 06/24/2018 Generated: 07/06/18 10:33 am Comments DCP- Discharge Planning Updated by [email or web address]: Lisa Sulema on 07/06/18 8:[address] Received auth for admission to [facility]. I informed Viktoria Arenas, she will write orders when she arrives. I called patient's daughter per patient request and informed of possible picking table worker time of 11:00. CM will continue to follow and assist with discharge planning/needs. DCP- Discharge Planning Updated by [email or web address]: Lisa Sulema on 07/05/18 8:[address] Updated clinical faxed to [place]. CM will continue to follow and assist with discharge planning/needs. DCP- Discharge Planning Updated by [id number]: Teagan Gama on 06/29/18 12:[address] SPOKE WITH [facility] ABOUT STATUS OF APPROVAL, THEY ARE REQUESTING ADDITIONAL INFORMATION. I HAVE SENT CLINICALS TO [facility] SERVED AND EXPLAINED TO PATIENT CM WILL CONTINUE TO FOLLOW AND ASSIST DCP- Discharge Planning Updated by [email or web address]: Lisa Sulema on 06/25/18 1:[address] Spoke with patient about skilled facilities. I informed her that her insurance will require pre authorization for inpatient rehab or skilled facility. She states that she would be agreeable to go to a skilled facility and asks me to call her daughter, Cheryl, and ask her which one she should go to. I called her daughter and informed her that PT and OT both recommend a skilled facility and her insurance company would probably deny inpatient rehab and refer her to a skilled facility. Jackie states that she is going to call the Human washhouse worker and see if she can get inpatient rehab approved. I informed Jackie that there are certain criteria for inpatient rehab to be approved. Jackie states she does not want to chose a skilled facility at this time, she wants to see if insurance will approve inpatient rehab. CM will continue to follow and assist with discharge planning/needs. DCP- Discharge Planning Updated by [email or web address]: Amelia Conley on 06/24/18 9:[address] Patient Name: MICHELLE MEDRANO Admission Status: ER Accout number: [id number] Admission Date: 06-24-2018 : 1935 Admission Diagnosis: Attending: REBECCA LAI Current LOS: 1 Anticipated DC Date: 06-28-2018 Planned Disposition: Inpatient Rehab Facility Primary Insurance: [employer] CHOICE PPO MCR ADVANT Discharge Planning Comments: EMERGENCY CONTACTS: Jackie Zaidi - daughter - [phone] CM met with patient and her daughter, Jackie to complete initial dc planning assessment. CM educated patient on the CM role and verbal consent given by patient to complete assessment. Patient lives at home with her daughter. At discharge patient's daughter would like for her to go to Inpatient rehab either here or [facility]. If she is not approved for [place] rehab her daughter said home with home health. They have used [facility] in the past and would like to use them again with second choice of [place]. YAW signed by patient's daughter for both [place] Rehabs, and both Home Health agencies. Signed copies of YAW forms placed on hospital chart and signed forms also given to patient's daughter. Jackie said her mother will never see the inside of a alf as long as she can help it. Patient's denied further known discharge needs at this time. CM will continue to follow and will assist as needed with dc plans/needs. Line Therapist: Amelia Conley RN, [facility] DCPIA - Discharge Planning Initial Assessment Updated by [email or web address]: Amelia Conley on 06/24/18 10:46 am * Is the patient Alert and Oriented? Yes * How many steps to enter\exit or inside your home? None/Ramp * PCP Dr. Jaycob Navarro * [facility] on [address] * Preadmission Environment Home with Family * ADLs Partial Dependent * Partial ADLs (Assistance needed) Bathing Dressing * Equipment Bedside [facility] Bed Nebulizer Oxygen Rolling Walker Shower Chair * List name and contact numbers for known caregivers / representatives who currently or will assist patient after discharge: Jackie Zaidi - daughter - [phone] * Verbal permission to speak to the caregivers and representatives has been obtained from the patient. Yes * Community resources currently utilized None * Additional services required to return to the preadmission environment? Yes * Can the patient safely return to the preadmission environment? Yes * Has this patient been hospitalized within the prior 30 days at any hospital? No Coverage Notice Reviewer: [id number] - Teagan Gama Notice Issued Date-Time: 06/29/2018 13:00 Notice Type: IM Discharge Notice Notice Delivered To: Patient Relationship to Patient: Brewery Representative Name: Delivery Method: HAND - Hand Delivered Shannon Days: Prior Verbal Notification: Recipient Understood Notice: Yes Recipient Signature: Yes Med Rec Note Co-signed by Attending: Coverage Notice Comment: Reviewer: [id number] - Lisa Leone Notice Issued Date-Time: 07/06/2018 9:22 Notice Type: IM Discharge Notice Notice Delivered To: Family Member Relationship to Patient: Daughter Brewery Representative Name: Jackie Zaidi Delivery Method: HAND - Hand Delivered Shannon Days: Prior Verbal Notification: Recipient Understood Notice: Yes Recipient Signature: Yes Med Rec Note Co-signed by Attending: Coverage Notice Comment: I hand delivered IMM to patient in the room, she understood notice and agrees with discharge. She asks me to call her daughter and also explain, which I did. Daughter agrees. Last DP export: 07/05/18 8:25 a Patient Name: MICHELLE MEDRANO Page [phone] at 0933 All edits/amendments must be made on the electronic document DICTATION DATE: 07/06/18931 RESEARCH HYDRAULIC ENGINEER: SILVIA 07/06/18931 RPT#: [id number] DC DATE: STATUS: ADM IN [facility] [address] [place] [address] END OF REPORT
--- NOTE | 2018-07-06 09:40 | MORECARE ---
CASE MANAGEMENT DISCHARGE SUMMARY PATIENT: MICHELLE MEDRANO UNIT: [id number] ADM DATE: 06/24/18 AGE: 83 : 33 SEX: F ROOM/BED: D.2233 AUTHOR: JAYDA,DOC PHYSICIAN: REFERRING PHYSICIAN: REBECCA LAI DO DATE OF SERVICE: 07/06/18 Discharge Plan Patient Name: MICHELLE MEDRANO Facility: [facility]:[place] : 1935 Planned Disposition: Inpatient Rehab Facility Anticipated Discharge Date: 06/28/18 Discharge Date: Expected LOS: 4 Initial Reviewer: [email or web address] Initial Review Date: 06/24/2018 Generated: 07/06/18 10:39 am Comments DCP- Discharge Planning Updated by [email or web address]: Lisa Leone on 07/06/18 8:[address] Discharge orders/med list and current MAR faxed to [facility]. Joan states she will call back with a van picket labor union time, she states it will probably be 11:00. Discharging to a skilled bed today at [facility]. DCP- Discharge Planning Updated by [id number]: Lisa Leone on 07/06/18 8:[address] Received auth for admission to [facility] skilled bed. I informed Viktoria Arenas, she will write orders when she arrives. I called patient's daughter per patient request and informed of possible picket labor union time of 11:00. CM will continue to follow and assist with discharge planning/needs. DCP- Discharge Planning Updated by [id number]: Lisa Leone on 07/05/18 8:[address] Updated clinical faxed to [facility]. CM will continue to follow and assist with discharge planning/needs. DCP- Discharge Planning Updated by [id number]: Teagan Gama on 06/29/18 12:[address] [facility] ABOUT STATUS OF APPROVAL, THEY ARE REQUESTING ADDITIONAL INFORMATION. I HAVE SENT CLINICALS TO [facility]. IMM SERVED AND EXPLAINED TO PATIENT CM WILL CONTINUE TO FOLLOW AND ASSIST DCP- Discharge Planning Updated by [email or web address]: Lisa Leone on 06/25/18 1:[address] Spoke with patient about skilled facilities. I informed her that her insurance will require pre authorization for inpatient rehab or skilled facility. She states that she would be agreeable to go to a skilled facility and asks me to call her daughter, Cheryl, and ask her which one she should go to. I called her daughter and informed her that PT and OT both recommend a skilled facility and her insurance company would probably deny inpatient rehab and refer her to a skilled facility. Jackie states that she is going to call the Human automotive tire worker and see if she can get inpatient rehab approved. I informed Jackie that there are certain criteria for inpatient rehab to be approved. Jackie states she does not want to chose a skilled facility at this time, she wants to see if insurance will approve inpatient rehab. CM will continue to follow and assist with discharge planning/needs. DCP- Discharge Planning Updated by [email or web address]: Amelia Conley on 06/24/18 9:[address] Patient Name: MICHELLE MEDRANO Admission Status: ER Accout number: [id number] Admission Date: 06-24-2018 : 1935 Admission Diagnosis: Attending: REBECCA LAI Current LOS: 1 Anticipated DC Date: 06-28-2018 Planned Disposition: Inpatient Rehab Facility Primary Insurance: HU[employer]NA CHOICE PPO MCR ADVANT Discharge Planning Comments: EMERGENCY CONTACTS: Jackie Zaidi - daughter - [phone] CM met with patient and her daughter, Jackie to complete initial dc planning assessment. CM educated patient on the CM role and verbal consent given by patient to complete assessment. Patient lives at home with her daughter. At discharge patient's daughter would like for her to go to Inpatient rehab either here or [facility]. If she is not approved for [place] rehab her daughter said home with home health. They have used [facility] in the past and would like to use them again with second choice of [place]. YAW signed by patient's daughter for both [place] Rehabs, and both Home Health agencies. Signed copies of YAW forms placed on hospital chart and signed forms also given to patient's daughter. Jackie said her mother will never see the inside of a group home as long as she can help it. Patient's denied further known discharge needs at this time. CM will continue to follow and will assist as needed with dc plans/needs. Document Preparer Microfilming: Amelia Conley RN, [facility] DCPIA - Discharge Planning Initial Assessment Updated by [email or web address]: Amelia Conley on 06/24/18 10:46 am * Is the patient Alert and Oriented? Yes * How many steps to enter\exit or inside your home? None/Ramp * PCP Dr. Jaycob Navarro * Pharmacy [facility] on [address] * Preadmission Environment Home with Family * ADLs Partial Dependent * Partial ADLs (Assistance needed) Bathing Dressing * Equipment Bedside [facility] Bed Nebulizer Oxygen Rolling Walker Shower Chair * List name and contact numbers for known caregivers / representatives who currently or will assist patient after discharge: Jackie Zaidi - daughter - [phone] * Verbal permission to speak to the caregivers and representatives has been obtained from the patient. Yes * Community resources currently utilized None * Additional services required to return to the preadmission environment? Yes * Can the patient safely return to the preadmission environment? Yes * Has this patient been hospitalized within the prior 30 days at any hospital? No Coverage Notice Reviewer: [id number] - Teagan Gama Notice Issued Date-Time: 06/29/2018 13:00 Notice Type: IM Discharge Notice Notice Delivered To: Patient Relationship to Patient: Fur Remodeler Name: Delivery Method: HAND - Hand Delivered Shannon Days: Prior Verbal Notification: Recipient Understood Notice: Yes Recipient Signature: Yes Med Rec Note Co-signed by Attending: Coverage Notice Comment: Reviewer: [id number] - Lisa Leone Notice Issued Date-Time: 07/06/2018 9:22 Notice Type: IM Discharge Notice Notice Delivered To: Family Member Relationship to Patient: Daughter Fur Remodeler Name: Jackie Zaidi Delivery Method: HAND - Hand Delivered Shannon Days: Prior Verbal Notification: Recipient Understood Notice: Yes Recipient Signature: Yes Med Rec Note Co-signed by Attending: Coverage Notice Comment: I hand delivered IMM to patient in the room, she understood notice and agrees with discharge. She asks me to call her daughter and also explain, which I did. Daughter agrees. Last DP export: 07/06/18 8:33 a Patient Name: MICHELLE MEDRANO Page [phone] at 0940 All edits/amendments must be made on the electronic document DICTATION DATE: 07/06/18938 HAND FLATWORK FINISHER: SILVIA 07/06/18938 RPT#: [id number] DC DATE: STATUS: ADM IN [facility] [address] [facility] [place] [address] END OF REPORT
[2018-07-06 09:58] VITALS: BP 170/74
--- NOTE | 2018-07-06 11:40 | NUR ---
IV REMOVED WITH CATH TIP INTACT.
[2018-07-06 11:53] VITALS: BP 158/67
--- NOTE | 2018-07-06 11:55 | NUR ---
PATIENT ESCORTED OUT OF BUILDING TO VEHICLE WITH PERSONAL BELONGINGS BY DAUGHTER AND [facility]. DISCHARGE INSTRUCTIONS SIGNED BY DAUGHTER. PRESCRIPTION SENT WITH PAPER WORK. NO NEW QUESTIONS.
--- NOTE | 2018-07-07 10:38 | EC ---
PATIENT:MICHELLE MEDRANO DATE OF SERVICE: 06/24/18 SEX: F MEDICAL RECORD: [id number] DATE OF : 31 LOCATION:[facility] AGE OF PATIENT: 83 ADMISSION DATE: 06/24/18 REFERRING PHYSICIAN: INTERPRETING PHYSICIAN: DEVEN VALENTIN MD ECHOCARDIOGRAM REPORT ECHO CHARGES 4 ECHO COMPLETE Date: 06/25/18 CLINICAL DIAGNOSIS: CHF ECHOCARDIOGRAPHIC MEASUREMENTS (adult normal given) AC root (d.<3.7cm) 2.9 cm LV Septum d (<1.2 cm> 1.4 cm Valve Excursion 1.6 cm LV Septum (systole) 1.5 cm Left Atria (s.<4.0cm> 4.0 cm LVPW d(<1.2cm) 1.3 cm RV (d.<2.3cm) 4.2 cm LVPW (sytole) 1.5 cm LV diastole(<5.6CM) 4.5 cm MV E-F(>70mm/sec) cm LV systole 3.2 cm LVOT Diameter 1.7 cm MV exc.(>10mm) 1.5 cm Est.ejection fraction (50-75%) % DOPPLER: LVIT cm/sec A 124 cm/sec E 95.0 cm/sec LA cm/sec RVSP 18 mmHg LVOT 115 cm/sec AOP1/2T m/s Asc. Ao 144 cm/sec RVOT 71 cm/sec RA cm/sec PA 134 cm/sec AV Gradient Peak 8.29 mmHg AV Mean 3.85 mmHg AV Area 1.6 cm MV Gradient Peak 8.22 mmHg MV Mean 3.56 mmHg MV Area cm COMMENTS: Ssas Developer: Chaka [employer] Manufacturing Technician: 1 Dr. Valentin TAPE# PACS Pericardial Effusion N DATE OF SERVICE: FINDINGS: 1. Left ventricular chamber size is within normal limits. Left ventricular systolic function is normal. Overall ejection fraction estimated at 55%. 2. Left atrium is enlarged at 4.0 cm. Right atrium and right ventricular chamber sizes are mildly dilated. 3. Valvular structures have normal structure and motion. 4. Doppler interrogation reveals mild aortic insufficiency, mild mitral regurgitation, mild tricuspid regurgitation, no other valvular insufficiency or ECHOCARDIOGRAM REPORT [id number] MICHELLE MEDRANO stenosis. Pulmonary systolic pressure is estimated at 18 mmHg. 5. No evidence of pericardial effusion or left ventricular thrombus. TRANSINT:[id number] Voice Confirmation ID: [id number] DOCUMENT ID: [id number] DEVEN VALENTIN MD at 1038 CC: [id number] DICTATION DATE: 06/25/181422 TELEPHOTO ENGINEER: 06/25/18 2334 DIS IN 07/06/18 [place] [id number] [place] [id number]
--- NOTE | 2018-07-07 10:38 | CN ---
PATIENT NAME:MICHELLE MEDRANO MEDICAL RECORD: [id number] : 31 LOCATION:D[facility] ADMIT DATE: 06/24/18 ACCOUNT: [id number] CONSULTING PHYSICIAN: DEVEN CEJA MD REFERRING PHYSICIAN: REBECCA LAI DO DATE OF CONSULTATION: 06/25/2018 DIAGNOSES: 1. Ankle fracture. 2. Preoperative evaluation. 3. Hypertension. 4. Coronary artery disease. 5. Previous percutaneous transluminal coronary angioplasty stent. 6. Peripheral vascular disease. 7. Hypertension. 8. Hyperlipidemia. HISTORY OF PRESENT ILLNESS: Mrs. Medrano presents after a fall, has an ankle fracture. She does have a cardiac history of coronary artery disease, PTCA stent of the RCA in the past. She has a normal ejection fraction, has not had heart failure symptomatology. Has had no recent anginal symptomatology. Does have a history of hypertension, on multiple medications and hyperlipidemia. PHYSICAL EXAMINATION: GENERAL APPEARANCE: Well-nourished, well-developed, appears stated age. Level of distress, comfortable. PSYCHIATRIC: Mental status, alert, normal affect. Orientation, oriented to time, place and person. EYES: Lids and conjunctiva, noninjected. No discharge, no pallor. ENT: Lips, teeth, gums, normal dentition. Oropharynx, no cyanosis, no pallor. NECK: Carotid arteries, bilateral normal upstroke, no bruits, no thrills. JUGULAR VEINS: No jugular venous pressure or distention. CERVICAL LYMPH NODES: Nontender, nonenlarged. THYROID: Not enlarged. Nontender. No nodules. LUNGS: Respiratory effort, unlabored. CHEST: Normal curvature. No thoracic deformity. No chest wall tenderness. Percussion, resonant. Auscultation, clear. No wheezes, no rales, no rhonchi. CARDIOVASCULAR: Precordial exam, nondisplaced. No heaves or pericardial thrills. Rate and rhythm, regular. Heart sounds, normal S1, normal S2. No S3, no gallop, no rub. Systolic murmur, not heard. Diastolic murmur, not heard. EXTREMITIES: No cyanosis, no edema. Peripheral pulses, full and equal in all extremities, except as noted. No bruits appreciated. ABDOMEN: Soft, nondistended. Normal aorta. No bruit. Nontender. No masses. Liver, nontender, no hepatomegaly. Spleen, nontender, no splenomegaly. MUSCULOSKELETAL: No joint tenderness. No joint swelling. No erythema. NEUROLOGICAL: Normal gait, normal strength, normal tone. SKIN: Warm and dry. OVERALL IMPRESSION: Stable from a cardiac standpoint, no cardiac symptomatology. Continue her current cardiac medications for heart rate and blood pressure control. Proceed with surgery at low cardiac risk. TRANSINT:[id number] Voice Confirmation ID: [id number] DOCUMENT ID: [id number] CONSULT REPORT [id number] MICHELLE MEDRANO JEFFREY MD at 1038 CC: [id number] DICTATION DATE: 06/25/18 0948 BOTANY TECHNICIAN: 06/25/18 1129 DIS IN 07/06/18 [place] [id number] [place] [address]
== END 2018-07-06 12:06 | DRG 562 ==
LOC: D.ER 08:10 → D.EDHOLD 09:46 → D.MS 09:46
PROVIDERS: Emergency Medicine; Family Medicine; Internal Medicine Nephrology; ADMIT Family Medicine; ATTEND Family Medicine
DX: S82.831A Other fracture of upper and lower end of right fibula, initial encounter for closed fracture (principal); J96.21 Acute and chronic respiratory failure with hypoxia; J18.9 Pneumonia, unspecified organism; N39.0 Urinary tract infection, site not specified; W18.30XA Fall on same level, unspecified, initial encounter; Z91.81 History of falling; I25.10 Atherosclerotic heart disease of native coronary artery without angina pectoris; E78.5 Hyperlipidemia, unspecified; I70.91 Generalized atherosclerosis; I11.0 Hypertensive heart disease with heart failure; I50.9 Heart failure, unspecified

== ENCOUNTER 2018-09-15 10:31 | Emergency (ER) | payer MEDICARE ==
[~2018-09-15] VITALS: Ht 147.3 cm; Wt 76.8 kg
[~2018-09-15 10:31] MED LIST changes: +BACTRIM 400/80 MG TA PO; +ELIQUIS5 MG PO; +FLORAJEN3 CAPS460 MG PO; +METOLAZONE5 MG PO; +NYSTATIN1 PWD TOPICAL; +PERCOCET 10-321 EAC1 PO; +PERCOCET 5-3251 TAB PO; +TRAZODONE HCL150 MG PO
[2018-09-15 10:35] VITALS: Ht 147.3 cm; Wt 76.8 kg
[2018-09-15] MEDS ORDERED: PROTONIX40 MG PO (10:42)
[2018-09-15] MEDS ORDERED: ULORIC40 MG PO (10:43)
[2018-09-15] MEDS ORDERED: CATAPRES0.1 MG PO (10:43)
[2018-09-15] MEDS ORDERED: FERROUS FUMARA324 MG PO (10:43)
[2018-09-15] MEDS ORDERED: ZOFRAN4 MG PO (10:44)
[2018-09-15] MEDS ORDERED: BAYER CHEWABLE81 MG PO (10:44)
[2018-09-15 12:00] LABS: BASOPHILS 0.3 % (0-2); EOSINOPHILS 4.2 % (0-7); HEMATOCRIT 29.9 % (36.0-48.0); IMMATURE GRANULOCYTES 0.7 % (0-5); LYMPHOCYTES 21.5 % (15-50); MCHC 30.1 g/dL (31.0-37.0); MCV 92.9 fL (80.0-100.0); MEAN PLATELET VOLUME 9.6 fL (7.4-10.4); NEUTROPHILS 59.3 % (40-80); PLATELET COUNT 229 10x3/uL (130-400); RBC 3.22 10x6/uL (4.00-5.40); RDW 14.4 % (11.5-14.5); WBC 6.1 10x3/uL (4.8-10.8)
[2018-09-15 12:07] LABS: APTT 29.6 SECONDS (22.8-39.4); INR 1.28 (0.85-1.17); PROTIME 15.4 SECONDS (11.6-15.0)
[2018-09-15 12:37] LABS: ALBUMIN 2.8 g/dL (3.4-5.0); ALKALINE PHOSPHATASE 59 U/L (46-116); ALT (SGPT) 15 U/L (10-68); BILIRUBIN - TOTAL 0.36 mg/dL (0.2-1.3); CALC OSMOLALITY 292 mosm/kg (275-300); CALCIUM 8.3 mg/dL (8.5-10.1); CARBON DIOXIDE 34.5 mmol/L (21.0-32.0); CHLORIDE - SERUM 104 mmol/L (98-107); CKMB 0.6 U/L (0.0-3.6); CREATINE KINASE 31 UL (21-215); CREATININE - SERUM 2.5 mg/dL (0.6-1.3); GLUCOSE 113 mg/dL (74-106); POTASSIUM - SERUM 4.3 mmol/L (3.5-5.1); PRO BNP 4728 pg/mL (0-450); PROTEIN - SERUM 5.5 g/dL (6.4-8.2); SODIUM 142 mmol/L (136-145); TROPONIN-I 0.018 ng/mL (0.000-0.060); UREA NITROGEN 38 mg/dL (7-18); eGFR NON AFRICAN AMERICAN 19 mL/min (90-120)
[2018-09-15 17:09] VITALS: BP 183/70
== END 2018-09-15 17:13 | disposition home or self-care (01) ==
LOC: D.ER 10:31
PROVIDERS: Family Medicine
DX: R06.00 Dyspnea, unspecified (principal); F41.9 Anxiety disorder, unspecified

== ENCOUNTER 2018-09-24 16:24 | Inpatient (IN) | payer MEDICARE ==
[~2018-09-24] VITALS: Ht 147.3 cm; Wt 66.3 kg
--- NOTE | ~2018-09-24 | HEMODYNAMI ---
PATIENT:MICHELLE MEDRANO MEDICAL RECORD: [id number] : 31 [facility] AD[facility]ION DATE: 09/28/18 Generatedon:09/29/201811:22 Patient name: MICHELLE MEDRANO Patient #: [id number] SSN: [id number] : 1935 Date of study: 09/29/2018 Page: Of Hemodynamic Procedure Report Patient Data Patient Demographics Procedure consent was obtained First Name: MICHELLE Gender: Female Last Name: MITCHELL : 1935 [facility] Initial: R Age: 83 year(s) Patient #: [id number] Race: SSN: [id number] Additional ID: [id number] Contact details [address]: [address] [place] [address] State: [place] City: [place] Zip code: [address] Past Medical History Performed procedures and imaging results Date Procedure Procedure Results Comments Diagnostic cath procedure 09/19/2018 Diagnostic cath procedure PCI History of disease Date Diagnosis Comments CAD COPD Allergies Allergen Reaction Date Comments Reported Other allergy 09/19/2016 INDOCIN, TRAMADOL Other allergy 09/27/2018 Indomethacin sodium, indomethacin, Tramadol Other allergy 09/29/2018 INDOCIN,TRAMADOL Admission Admission Data Admission Date: 09/28/2018 Admission Time: 11:47 Admit Source: Emergency department Room #: D.2117 Weight (lbs.): 165 Weight (kg.): 74.84 Lab Results Lab Result Date: 09/27/2018 Lab Result Time: 0:00 Biochemistry Name Units Result Min Max BUN mg/dl 40 --(----)-* 7 18 Creatinine mg/dl 2.6 --(----)-* 0.6 1.3 CBC Name Units Result Min Max Hematocrit % 30.7 *-(----)-- 42 54 Hemoglobin g/dl 9.1 *-(----)-- 13.5 17.5 Procedure Procedure Types Cath Procedure Diagnostic Procedure LHC LHC w/Coronaries FFR/IVUS FFR Initial FFR Additional Sedation Charges Moderate Sedation up to 15 minutes PCI Procedure Coronary Stent Coronary Stent Initial x2 Procedure Description Procedure Date Procedure Date: 09/29/2018 Procedure Start Time: 10:44 Procedure End Time: 11:21 Procedure Staff Name Function Manuel Valentin MD Performing Physician Bryant Fall RT Monitor Terri Hurtado RT Scrub Mark Delgado RN Nurse José Cole RT Monitor Reece Boyd RT Monitor Procedure Data Cath Procedure Fluoroscopy Diagnostic fluoroscopy Total fluoroscopy Time: 8.8 time: 8.8 min min Diagnostic fluoroscopy Total fluoroscopy dose: dose: 1612 mGy 1612 mGy Contrast Material Contrast Material Type Amount (ml) Isovue 300 189 Entry Location Entry Primary Successful Side Size Upsize Upsize Entry Closure Garvey ccessful Closure Location (Fr) 1 (Fr) 2 (Fr) Remarks Device Remarks Radial Right 6 Fr Mechanical artery Short Compression Estimated blood loss: 10 ml Diagnostic catheters Device Type Used For End Catheter Placement DIAGNOSTIC [place] 110cm 5 Fr catheter ([id number]) Procedure Complications No complications Procedure Medications Medication Administration Route Dosage Oxygen etCO2 Nasal cannula 3 l/min Lidocaine 2% added to field 20 Heparin Flush Bag added to field 2 bags (1000units/500ml NS) 0.9% NaCl I.V. 100 ml/hr Versed I.V. 1 mg Fentanyl I.V. 50 mcg Heparin Bolus I.V. 4000 units Versed I.V. 1 mg Fentanyl I.V. 50 mcg Lasix I.V. 40 mg Plavix P.O. 75 mg Hemodynamics Rest Heart Rate: 71 (bpm) Pressure Samples Time Site Value (mmHg) Purpose Heart Use Rate(bpm) 10:47 LV 111/16,16 Snapshot 71 Snapshots Pre Cath Intra NCS Post Cath Vital Signs Time Heart Resp SPO2 etCO2 NIBP (mmHg) Rhythm Pain Sedation Rate (ipm) (%) (mmHg) Status Level (bpm) 10:29:31 63 3 96 0 Measuring NSR 0 (11) 10(A) , No pain 10:29:57 102 2 96 0 187/99(149) NSR 0 (11) 10(A) , No pain 10:34:26 74 16 96 0 173/90(141) NSR 0 (11) 10(A) , No pain 10:38:52 66 15 97 0 154/81(121) NSR 0 (11) 10(A) , No pain 10:43:10 69 12 96 0 156/84(126) NSR 0 (11) 10(A) , No pain 10:47:36 74 11 92 0 108/46(74) NSR 0 (11) 9(A) , No pain 10:52:37 69 11 94 0 136/79(102) NSR 0 (11) 9(A) , No pain 10:56:47 72 11 95 0 149/78(125) NSR 0 (11) 9(A) , No pain 11:01:01 72 12 96 0 156/77(123) NSR 0 (11) 9(A) , No pain 11:05:15 79 17 96 0 164/85(126) NSR 0 (11) 9(A) , No pain 11:09:31 78 14 96 0 166/87(128) NSR 0 (11) 10(A) , No pain 11:13:51 77 25 96 0 161/80(115) NSR 0 (11) 10(A) , No pain 11:18:46 77 14 96 0 168/88(135) NSR 0 (11) 10(A) , No pain Medications Time Medication Route Dose Verified Delivered Reason Notes Effectiveness by by 10:33:18 Oxygen etCO2 3 Manuel Buffie used for Nasal l/min Barbie Delgado RN procedure cannula 10:33:27 Lidocaine 2% added 20ml Manuel Manuel for local to vial Barbie Valentin MD anesthetic field 10:33:33 Heparin Flush added 2 Manuel Manuel used for Bag to bags Barbie Valentin MD procedure (1000units/500ml field NS) 10:33:41 0.9% NaCl I.V. 100 Manuel Buffie Per physician ml/hr Barbie Delgado RN 10:44:47 Versed I.V. 1 mg Manuel Buffie for sedation Barbie Delgado RN 10:44:55 Fentanyl I.V. 50 Manuel Buffie for sedation mcg Barbie Delgado RN 10:49:03 Versed I.V. 1 mg Manuel Buffie for sedation Barbie Delgado RN 10:49:10 Fentanyl I.V. 50 Manuel Buffie for sedation mcg Barbie Delgado RN 10:52:58 Heparin Bolus I.V. 4000 Manuel Buffie for verif ied units Barbie Delgado RN anticoagulation with dr valentin 11:14:32 Lasix I.V. 40 mg Manuel Flores Per physician Barbie Delgado RN 11:14:39 Plavix P.O. 75 mg Manuel Flores for Barbie Delgado RN antiplatelet therapy Procedure Log Time Note 10:03:25 Signed procedure consent form obtained from patient. 10:03:27 Procedure Status Urgent Heart Cath (IP). 10:03:28 Time tracking: Regular hours (M-F 7:00 - 5:00) 10:03:32 Plan of Care:Hemodynamics will remain stable., Cardiac rhythm will remain stable., Comfort level will be maintained., Respiratory function will remain adequate., Patient/ family verbilizes understanding of procedure., Procedure tolerated without complication., Recovers from procedure without complications.. 10:03:36 Patient Weight : 165 lbs 10:05:19 Terri Hurtado RT(R) sent for patient. Start room use. 10:27:38 Patient received from Med II to CCL 2 Alert and oriented. Tansferred to table in Supine position. 10:27:40 Warm blankets applied, and jaida hugger turned on for patient comfort. 10:27:40 Correct patient and procedure confirmed by team. 10:27:41 ECG and BP/O2 sat monitors applied to patient. 10:27:42 Vital chart was started 10:28:46 Pre-procedure instructions explained to patient. 10:28:46 Pre-op teaching completed and patient verbalized understanding. 10:28:47 Family in patients room. 10:28:49 Patient NPO since Midnight. 10:29:08 Patient allergic to Other allergyINDOCIN,TRAMADOL 10:29:11 Full Disclosure recording started 10:29:15 Rhythm: sinus rhythm 10:29:15 Is patient on blood thinner?Yes 10:29:17 ACC The patient was administered the following blood thiners within the last 24 hours: ACCPlavix 10:29:18 Patient diabetic? Yes. 10:29:19 If diabetic: On Metformin? Yes 10:29:24 If on Metformin: Last Dose? 09/27/2018 10:29:37 Previous problem with sedation/anesthesia? No ? 10:30:10 Snore? Yes 10:30:11 Sleep apnea? No 10:30:12 Deviated septum? No 10:30:15 Opens mouth fully? Yes 10:30:17 Sticks out tongue? Yes 10:30:23 Airway obstruction? Yes COPD, EMPHYSEMA 10:30:28 Dentures? Yes IN 10:30:35 Pre procedure: left dorsailis pedis pulse 1+ Palpable, but thready & weak; easily obliterated 10:30:39 Patient pain scale 0/10 ?. 10:30:45 IV patent on arrival in right antecubital with 0.9% NaCl at [facility]. 10:30:48 Lab results completed and on chart. 10:31:15 Right Radial & Left Groin area was prepped with chlora-prep and draped in sterile fashion 10:31:16 Alarms reviewed by R. N. 10:31:16 Sharps counted by scrub and verified by R.N. 10:31:25 Use device set Radial Dx or PCI 10:31:26 ACIST Syringe (75434) opened to sterile field. 10:31:26 Medline Cath Pack ([id number]) opened to sterile field. 10:31:27 Bag Decanter (2002) opened to sterile field. 10:31:28 ACIST Manifold (90882) opened to sterile field. 10:31:29 ACIST Hand Control (46923) opened to sterile field. 10:31:29 Tegaderm 4 x 4 (1626W) opened to sterile field. 10:31:30 MBrace Wrist Support ([id number]) opened to sterile field. 10:31:32 EMERALD Guide Wire (775-302) opened to sterile field. 10:31:32 SHEATH 6FR RAIN (5589791) opened to sterile field. 10:33:18 Oxygen 3 l/min etCO2 Nasal cannula was administered by Mark Delgado RN; used for procedure; 10:33:27 Lidocaine 2% 20ml vial added to field was administered by Manuel Valentin MD; for local anesthetic; 10:33:33 Heparin Flush Bag (1000units/500ml NS) 2 bags added to field was administered by Manuel Valentin MD; used for procedure; 10:33:41 0.9% NaCl 100 ml/hr I.V. was administered by Mark Delgado RN; Per physician; 10:33:47 Diagnostic Cath Status : Elective 10:43:06 Physician arrived 10:43:07 --------ALL STOP TIME OUT------ 10:43:08 Final Timeout: patient, procedure, and site verified with staff and physician. All members of the team are in agreement. 10:43:16 Left groin site verified by team. 10:43:21 Right Radial site verified by team. 10:43:27 Fire Safety Assessment: A--An alcohol-based skin anteseptic being used preoperatively., C--Open oxygen or nitrous oxide is being used., D--An ESU, laser, or fiber-optic light is being used. 10:43:32 Physical assessment completed. ASA score P 3 - A patient with severe systemic disease as per Manuel Valentin MD. 10:44:13 Maximum allowable contrast does (3.7 X eGFR X 0.75)66 ml. 10:44:18 Sedation plan: IV Moderate Sedation Medication:Versed, Fentanyl 10:44:35 Procedure started. 10:44:43 Local anesthetic to right radial artery with Lidocaine 2% by Manuel Valentin MD.INITIAL ACCESS ONLY 10:44:47 Versed 1 mg I.V. was administered by Mark Delgado RN; for sedation; 10:44:55 Fentanyl 50 mcg I.V. was administered by Mark Delgado RN; for sedation; 10:45:19 A 6 Fr Short sheath was inserted into the Right Radial artery 10:45:56 A DIAGNOSTIC [place] 110cm 5 Fr catheter (549326) was advanced over the wire and used for . 10:46:20 GLIDE WIRE ANGLE 260cm (XA2657) opened to sterile field. 10:47:06 GLIDE WIRE ADVANCED 10:47:19 Zero performed for pressure channel P1 10:47:24 Zero performed for pressure channel P1 10:47:55 LV hemodynamics recorded. 10:47:58 LV gram done using DESHPANDE 10:48:04 EF : 60 % 10:48:13 LCA angiography performed. 10:49:03 Versed 1 mg I.V. was administered by Mark Delgado RN; for sedation; 10:49:10 Fentanyl 50 mcg I.V. was administered by Mark Delgado RN; for sedation; 10:49:51 RCA angiography performed. 10:51:29 INFLATOR Merit BasixCompak (OL3825) opened to sterile field. 10:51:43 GUIDE 6FR AR 2.0 SH catheter ([id number]) opened to sterile field. 10:51:44 [place] Verrata Plus pressure wire (70948Y) opened to sterile field. 10:51:50 GUIDE 6FR XB 3.5 catheter (89580931) opened to sterile field. 10:51:55 Catheter removed. 10:51:59 6 Fr AR 2 SH guide catheter was inserted over the wire 10:52:04 FFR/IFR wire advanced. 10:52:56 CHOICE PT Extra Support 182cm wire (1463799R2) opened to sterile field. 10:52:58 Heparin Bolus 4000 units I.V. was administered by Mark Delgado RN; for anticoagulation; verified with dr valentin 10:53:16 Wire advanced across lesion. 10:54:08 dRCA lesion measured at 0.99 with IFR 10:54:12 Wire removed. 10:54:13 Guide Catheter removed. 10:54:47 6 Fr XB 3.5 guide catheter was inserted over the wire 10:56:45 Guide Catheter removed. unable to cannulate vessel. 10:56:52 GUIDE 6FR XBLAD 3.5 catheter (86179366) opened to sterile field. 10:57:45 6 Fr XBLAD 3.5 guide catheter was inserted over the wire 10:58:11 Baseline sample Acquired. 10:58:41 FFR/IFR wire advanced. 10:59:31 Wire advanced across lesion. 11:01:28 pLAD lesion measured at 0.85 with IFR 11:02:00 ACT drawn and measured at 304 seconds. 11:06:26 Place stent Inflation Number: 1 A COBRA RX 3.5 X 24 Stent was prepped and advanced across the Prox LAD . The stent was deployed at 17 PATIENCE for 0:10 (min:sec) . 11:06:31 Stent catheter was removed intact over wire. 11:06:33 Wire removed. 11:06:40 CHOIE PT ES wire advanced. 11:06:42 Wire advanced across lesion. 11:08:02 Place stent Inflation Number: 1 A COBRA RX 3.0 X 12 Stent was prepped and advanced across the Prox CX . The stent was deployed at 11 PATIENCE for 0:10 (min:sec) . 11:09:05 Stent catheter was removed intact over wire. 11:09:05 Wire removed. 11:09:06 Guide catheter removed. 11:09:20 TR BAND Large ([id number]) opened to sterile field. 11:10:19 Sheath removed intact; hemostasis achieved with Mechanical Compression to the Right Radial artery. 11:10:20 Procedure ended.(Physican Out) 11:14:32 Lasix 40 mg I.V. was administered by Mark Delgado RN; Per physician; 11:14:39 Plavix 75 mg P.O. was administered by Mark Delgado RN; for antiplatelet therapy; 11:16:53 Fluoroscopy time 08.80 minutes. 11:16:59 Fluoroscopy dose: 1612 mGy 11:16:59 Flurop Dose total: 1612 11:17:28 Contrast amount:Isovue 300 189ml. 11:17:41 Maximum allowable dose exceeded? Yes. 11:17:42 Sharps counted by scrub and verified by R.N. 11:17:46 TR band inflated with 12cc of air. 11:17:47 Insertion/operative site no bleeding no hematoma. 11:17:49 Post Procedure Pulses reassessed and unchanged 11:17:51 Post-procedure physical assessment completed. ASA score P 3 - A patient with severe systemic disease as per Manuel Valentin MD. 11:18:00 Post procedure rhythm: unchanged. 11:18:02 Estimated blood loss: 10 ml 11:18:03 Post procedure instruction explained to patient.Patient verbalizes understanding. 11:18:04 Patient needs reinforcement of post procedure teaching. 11:19:19 Procedure type changed to Cath procedure, Diagnostic procedure, LHC, LHC w/Coronaries, FFR/IVUS, FFR Initial, FFR Additional, Sedation Charges, Moderate Sedation up to 15 minutes, PCI procedure, Coronary Stent, Coronary Stent Initial x2 11:20:56 Procedure and supply charges have been captured, reviewed, submitted and are correct. 11:20:58 Procedure Complication : No complications 11:21:00 Vital chart was stopped 11:21:00 See physician's report for complete and final results. 11:21:05 Report given to PCU. 11:21:07 Patient transfered to PCU with Stretcher. 11:21:20 Procedure ended. 11:21:21 Full Disclosure recording stopped 11:21:24 End room use (Document Last) Intervention Summary Intervention Notes Time ActionType Lesion and Equipment Action# Pressure Duration Attributes Used 11:06:26 Place stent Prox LAD COBRA RX 1 17 00:10 3.5 X 24 Stent 11:08:02 Place stent Prox CX COBRA RX 1 11 00:10 3.0 X 12 Stent Device Usage Item Name Manufacture Quantity Catalog Number Hospital Part Current Minimal Lot# / Charge Number Stock Stock Serial# Code ACIST Syringe Acist 1 66931 569330 037677 686730 20 (97202) Medical Systems Inc Medline Cath Medline 1 [id number] 409192 85681 775186 5 Pack ([id number]) Bag Decanter Microtek 1 2001S 102153 88686 750814 5 (2001S) Medical Inc. ACIST Manifold Acist 1 89291 548529 720064 733730 5 (42860) Medical Systems Inc ACIST Hand Acist 1 40035 948843 580985 842916 5 Control Medical (25222) Systems Inc Tegaderm 4 x 4 3M 1 1626W 643646 474134 700036 5 (1626W) MBrace Wrist Advanced 1 140-0250-00 763724 77423 220570 5 Support Vascular ([id number]) Dynamics EMERALD Guide Cardinal 1 502-455 059374 152723 811581 5 Wire (502-455) Health SHEATH 6FR Cardinal 1 8046178 848678 7505863 817533 5 RAIN (3591712) Health DIAGNOSTIC Terumo 1 405013 851768 906782 252180 5 [place] 110cm 5 Fr catheter (008003) GLIDE WIRE Terumo 1 WQ4441 648497 740598 283829 5 ANGLE 260cm (CH6961) INFLATOR Merit Merit 1 TH4496 082646 769047 676110 15 BasNYX Interactive Medical (WY0675) GUIDE 6FR AR Medtronic 1 [id number] 643673 43823 305936 1 2.0 SH catheter ([id number]) [place] 1 24100J 832790 984235519 103041 5 Verrata Plus pressure wire (79766P) GUIDE 6FR XB Cardinal 1 73234000 248550 560275 703488 2 3.5 catheter Health (01192740) CHOICE PT [place] 1 [id number] 776896 341368 705093 5 Extra Support Scientific 182cm wire ([id number]) GUIDE 6FR Cardinal 1 [id number] 725507 398611 828974 10 XBLAD 3.5 Health catheter (06590256) COBRA RX 3.5 X Celonova 1 134007 [id number] 9639040 6 [id number] 24 stent Biosciences () COBRA RX 3.0 X Celonova 1 384997 28514277 8134458 5 [id number] 12 stent Biosciences () TR BAND Large Terumo 1 [id number] 674081 688272 957749 40 ([id number]) Signature Audit [place] Stage Time Signature Unsigned Intra-Procedure 09/29/2018 Bryant Fall 11:21:53 AM RT(R) Signatures Performing Physician : Signature : Manuel Valentin MD Date : Time : Monitor : Bryant Fall RT Signature : Date : Time : Nurse : Mark Delgado RN Signature : Date : Time : Monitor : José Cole RT Signature : Date : Time : Monitor : Reece Boyd RT Signature : Date : Time : [place] [address] [place] [address]
--- NOTE | ~2018-09-24 | DS ---
PATIENT:MICHELLE BANERJEE :31 MEDICAL RECORD: [id number] DISCHARGE SUMMARY ADMISSION DATE: 09/28/18 DISCHARGE DATE: 09/30/18 DATE OF SERVICE: 09/30/2018 DIAGNOSES: 1. Unstable angina. 2. Coronary artery disease. 3. PTCA and stent of the LAD and circumflex this admission. 4. Hypertension. 5. Shortness of breath, dyspnea on exertion. 6. Congestive heart failure, chronic systolic dysfunction. HOSPITAL COURSE: Ms. Banerjee presents with anginal symptomatology, found to have 2-vessel disease of the LAD and left circumflex. Underwent successful PTCA and stent of these territories. Discharged home with the addition of aspirin and Plavix to her medical regimen. She will follow up with [facility] in [facility] month. TRANSINT:[id number] Voice Confirmation ID: [id number] DOCUMENT ID: [id number] DEVEN CEJA MD CC: [id number] DICTATION DATE: 10/01/18 1520 SALES AND MARKETING VICE PRESIDENT: 10/02/18 0433 DIS IN 09/30/18 [facility] [address] [place] [id number]
--- NOTE | ~2018-09-24 | HEMODYNAMI ---
PATIENT:MICHELLE MEDRANO MEDICAL RECORD: [id number] : 31 [facility] AD[facility] DATE: 09/24/18 Generatedon:09/27/201817:08 Patient name: MICHELLE MEDRANO Patient #: [id number] SSN: DO B: 1935 Date of study: 09/27/2018 Page: Of Hemodynamic Procedure Report Patient Data Patient Demographics Procedure consent was obtained First Name: MICHELLE Gender: Female Last Name: MITCHELL : 1935 [facility] Initial: R Age: 83 year(s) Patient #: [id number] Race: Additional ID: [id number] Contact details [address]: [address] [place] [address] State: [place] City: [place] Zip code: [address] Past Medical History Allergies Allergen Reaction Date Comments Reported Other allergy 09/19/2016 INDOCIN, TRAMADOL Other allergy 09/27/2018 Indomethacin sodium, indomethacin, Tramadol Admission Admission Data Admission Date: 09/24/2018 Admission Time: 18:29 Admit Source: Emergency department Room #: D.2117 Weight (lbs.): 165 Weight (kg.): 74.84 Lab Results Lab Result Date: 09/27/2018 Lab Result Time: 0:00 Biochemistry Name Units Result Min Max BUN mg/dl 40 --(----)-* 7 18 Creatinine mg/dl 2.6 --(----)-* 0.6 1.3 CBC Name Units Result Min Max Hematocrit % 30.7 *-(----)-- 42 54 Hemoglobin g/dl 9.1 *-(----)-- 13.5 17.5 Procedure Procedure Types Cath Procedure Diagnostic Procedure Sedation Charges Moderate Sedation up to 45 minutes Procedure Description Procedure Date Procedure Date: 09/27/2018 Procedure Start Time: 16:10 Procedure End Time: 17:07 Procedure Staff Name Function Manuel Valentin MD Performing Physician Parmjit Benoit RN Nurse Eleazar Escobedo RT Scrsabino Slaughter RT Scrub Bryant Fall RT Monitor Procedure Data Cath Procedure Fluoroscopy Diagnostic fluoroscopy Total fluoroscopy Time: 2.1 time: 2.1 min min Diagnostic fluoroscopy Total fluoroscopy dose: 58 dose: 58 mGy mGy Contrast Material Contrast Material Type Amount (ml) Isovue 300 0 Entry Location Entry Primary Successful Side Size Upsize Upsize Entry Closure Succes sful Closure Location (Fr) 1 (Fr) 2 (Fr) Remarks Device Remarks Femoral Right 5 Fr 6 Fr Exoseal artery Long Estimated blood loss: 5 ml Diagnostic catheters Device Type Used For End Catheter Placement MULTIPACK Pigtail 5 Fr Procedure catheter Procedure Complications No complications Procedure Medications Medication Administration Route Dosage 0.9% NaCl I.V. 100 ml/hr Oxygen etCO2 Nasal cannula 2 l/min Heparin Flush Bag added to field 2 bags (1000units/500ml NS) Lidocaine 2% added to field 20 Radial Cocktail added to field 1 syringe (Verapamil 2mg/Nitro 400mcg/Heparin 1500units) Versed I.V. 1 mg Fentanyl I.V. 50 mcg Fentanyl I.V. 25 mcg Fentanyl I.V. 25 mcg Versed I.V. 0.5 mg Versed I.V. 0.5 mg Fentanyl I.V. 50 mcg Versed I.V. 0.5 mg Fentanyl I.V. 25 mcg Fentanyl I.V. 25 mcg Versed I.V. 0.5 mg Hemodynamics Rest HGB: 9.1 (g/dl) Heart Rate: 85 (bpm) Snapshots Pre Cath Intra NCS Post Cath Vital Signs Time Heart Resp SPO2 etCO2 NIBP (mmHg) Rhythm Pain Sedation Rate (ipm) (%) (mmHg) Status Level (bpm) 15:54:54 82 14 97 0 161/80(128) NSR 0 (11) 10(A) , No pain 15:59:37 78 19 97 0 162/85(157) NSR 0 (11) 10(A) , No pain 16:04:22 70 23 97 0 162/75(91) NSR 0 (11) 10(A) , No pain 16:09:04 77 15 97 0 162/77(120) NSR 0 (11) 10(A) , No pain 16:13:47 77 15 97 0 167/82(120) NSR 0 (11) 10(A) , No pain 16:18:38 79 17 97 0 170/74(116) NSR 0 (11) 10(A) , No pain 16:23:20 77 15 97 0 148/84(128) NSR 0 (11) 10(A) , No pain 16:27:57 73 14 98 0 161/82(127) NSR 0 (11) 10(A) , No pain 16:32:37 73 14 97 0 156/83(126) NSR 0 (11) 10(A) , No pain 16:37:18 72 15 97 0 167/79(123) NSR 0 (11) 10(A) , No pain 16:42:05 71 13 97 0 151/78(132) NSR 0 (11) 10(A) , No pain 16:46:47 72 13 97 0 146/71(124) NSR 0 (11) 10(A) , No pain 16:51:28 65 11 98 0 143/72(130) NSR 0 (11) 10(A) , No pain 16:56:04 70 10 98 0 150/73(132) NSR 0 (11) 10(A) , No pain 17:00:45 69 13 98 0 144/77(124) NSR 0 (11) 10(A) , No pain 17:05:24 72 13 98 0 147/71(128) NSR 0 (11) 10(A) , No pain Medications Time Medication Route Dose Verified Delivered Reason Notes E ffectiveness by by 15:59:32 0.9% NaCl I.V. 100 Parmjit Parmjit Per ml/hr Kaycee Benoit physician RN RN 15:59:45 Oxygen etCO2 2 l/min Parmjit Parmjit for low 02 Nasal Lorigan Lorigan sats cannula RN RN 15:59:57 Heparin Flush added 2 bags Parmjit Parmjit used for Bag to Lorigan Lorigan procedure (1000units/500ml field RN RN NS) 16:00:07 Lidocaine 2% added 20ml Parmjit Parmjit for local to vial Lorigan Lorigan anesthetic field RN RN 16:00:17 Radial Cocktail added 1 Parmjit Parmjit used for (Verapamil to syringe Lorigan Lorigan procedure 2mg/Nitro field RN RN 400mcg/Heparin 1500units) 16:06:38 Versed I.V. 1 mg Parmjit Parmjit for Lorigan Lorigan sedation RN RN 16:06:46 Fentanyl I.V. 50 mcg Parmjit Parmjit for Lorigan Lorigan sedation RN RN 16:12:50 Fentanyl I.V. 25 mcg Parmjit Parmjit for Lorigan Lorigan sedation RN RN 16:22:09 Fentanyl I.V. 25 mcg Parmjit Parmjit for Lorigan Lorigan sedation RN RN 16:22:19 Versed I.V. 0.5 mg Parmjit Parmjit for Lorigan Lorigan sedation RN RN 16:31:14 Versed I.V. 0.5 mg Parmjit Parmjit for Lorigan Lorigan sedation RN RN 16:34:36 Fentanyl I.V. 50 mcg Parmjit Parmjit for Lorigan Lorigan sedation RN RN 16:38:23 Versed I.V. 0.5 mg Parmjit Parmjit for Lorigan Lorigan sedation RN RN 16:40:36 Fentanyl I.V. 25 mcg Parmjit Parmjit for Lorigan Lorigan sedation RN RN 16:45:14 Fentanyl I.V. 25 mcg Parmjit Parmjit for Lorigan Lorigan sedation RN RN 16:52:31 Versed I.V. 0.5 mg Parmjit Parmjit for Lorigan Lorigan sedation RN photographic platemaker Log Time Note 15:20:41 Informed consent obtained and on chart 15:20:55 Eleazar SOTO(R) sent for patient. Start room use. 15:21:05 Admit Source: Emergency department 15:21:53 Procedure Status Urgent Heart Cath (IP). 15:21:58 Time tracking: Regular hours (M-F 7:00 - 5:00) 15:22:03 Plan of Care:Hemodynamics will remain stable., Cardiac rhythm will remain stable., Comfort level will be maintained., Respiratory function will remain adequate., Patient/ family verbilizes understanding of procedure., Procedure tolerated without complication., Recovers from procedure without complications.. 15:22:15 H&P Date Dictated: 09/24/2018 Within 30 days and on chart.. 15:24:27 Patient allergic to Other allergyIndomethacin sodium, indomethacin, Tramadol 15:25:18 Lab Result : BUN 40 mg/dl 15:25:18 Lab Result : Hemoglobin 9.1 g/dl 15:25:18 Lab Result : Creatinine 2.6 mg/dl 15:25:18 Lab Result : Hematocrit 30.7 % 15:25:21 Lab results completed and on chart. 15:42:50 Patient received from Med II to CCL 1 Alert and oriented. Tansferred to table in Supine position. 15:42:52 Warm blankets applied, and jaida hugger turned on for patient comfort. 15:42:53 Correct patient and procedure confirmed by team. 15:42:54 ECG and BP/O2 sat monitors applied to patient. 15:47:29 Patient Weight : 165 lbs 15:53:24 Vital chart was started 15:54:11 Baseline sample Acquired. 15:54:15 Rhythm: sinus rhythm 15:54:17 Full Disclosure recording started 15:54:18 Pre-procedure instructions explained to patient. 15:54:18 Pre-op teaching completed and patient verbalized understanding. 15:54:21 Family in patients room. 15:54:22 Patient NPO since Midnight. 15:54:25 Is the patient allergic to Iodine/contrast media? No. 15:54:28 Is patient on blood thinner?No 15:54:30 Patient diabetic? Yes. 15:54:32 If diabetic: On Metformin? Unknown 15:54:35 Previous problem with sedation/anesthesia? No ? 15:54:39 Snore? Yes 15:54:40 Sleep apnea? No 15:54:41 Deviated septum? No 15:54:42 Opens mouth fully? Yes 15:54:43 Sticks out tongue? Yes 15:54:52 Airway obstruction? Yes COPD, EMPHYSEMA 15:54:58 Dentures? Yes IN 15:55:01 Pre procedure: right dorsailis pedis pulse 1+ Palpable, but thready & weak; easily obliterated 15:55:03 Modified Johnathan's test Ulnar < 7 seconds 15:55:06 Patient pain scale 0/10 ?. 15:55:12 IV patent on arrival in right forearm with 0.9% NaCl at O. 15:55:16 Right Radial & Right Groin area was prepped with chlora-prep and draped in sterile fashion 15:55:17 Alarms reviewed by R. N. 15:55:18 Sharps counted by scrub and verified by R.N. 15:59:32 0.9% NaCl 100 ml/hr I.V. was administered by Parmjit Benoit RN; Per physician; 15:59:45 Oxygen 2 l/min etCO2 Nasal cannula was administered by Parmjit Benoit RN; for low 02 sats; 15:59:57 Heparin Flush Bag (1000units/500ml NS) 2 bags added to field was administered by Parmjit Benoit RN; used for procedure; 16:00:07 Lidocaine 2% 20ml vial added to field was administered by Parmjit Benoit RN; for local anesthetic; 16:00:17 Radial Cocktail (Verapamil 2mg/Nitro 400mcg/Heparin 1500units) 1 syringe added to field was administered by Parmjit Benoit RN; used for procedure; 16:05:39 Physician arrived 16::39 --------ALL STOP TIME OUT------ 16::39 Final Timeout: patient, procedure, and site verified with staff and physician. All members of the team are in agreement. 16:05:41 Right Radial & Right Groin site verified by team. 16:05:45 Fire Safety Assessment: A--An alcohol-based skin anteseptic being used preoperatively., C--Open oxygen or nitrous oxide is being used., D--An ESU, laser, or fiber-optic light is being used. 16:05:48 Physical assessment completed. ASA score P 3 - A patient with severe systemic disease as per Manuel Valentin MD. 16:06:02 4) 15-29 Severley reduced kidney function. 16:06:38 Versed 1 mg I.V. was administered by Parmjit Benoit RN; for sedation; 16:06:46 Fentanyl 50 mcg I.V. was administered by Parmjit Benoit RN; for sedation; 16:06:51 Maximum allowable contrast does (3.7 X eGFR X 0.75)50 ml. 16:06:54 Sedation plan: IV Moderate Sedation Medication:Versed, Fentanyl 16:07:21 Zero performed for pressure channel P1 16:10:24 Procedure started. 16:10:29 Local anesthetic to right radial artery with Lidocaine 2% by Manuel Valentin MD.INITIAL ACCESS ONLY 16:11:13 Zero performed for pressure channel P1 16:12:50 Fentanyl 25 mcg I.V. was administered by Parmjit Benoit RN; for sedation; 16:17:47 unable to gain radial access, moving to femoral approach. 16:17:52 Local anesthetic to right femoral artery with Lidocaine 2% by Manuel Valentin MD.ADDITIONAL ACCESS 16:18:08 A 5 Fr sheath was inserted into the Right Femoral artery 16:20:53 SHEATH 6FR ARROW 45cm ([id number]) opened to sterile field. 16:21:03 Sheath upsized to a 6 Fr Long. 16:22:09 Fentanyl 25 mcg I.V. was administered by Parmjit Benoit RN; for sedation; 16:22:13 Use device set Multipack Set 16:22:14 DIAGNOSTIC Multipack 5Fr catheter set ([id number]) opened to sterile field. 16:22:19 Versed 0.5 mg I.V. was administered by Pramjit Benoit RN; for sedation; 16:22:25 Use device set Radial Dx or PCI 16:22:33 ACIST Syringe (95771) opened to sterile field. 16:22:35 Medline Cath Pack ([id number]) opened to sterile field. 16:22:35 Bag Decanter (2002S) opened to sterile field. 16:22:35 ACIST Hand Control (04444) opened to sterile field. 16:22:36 ACIST Manifold (80312) opened to sterile field. 16:22:36 Tegaderm 4 x 4 (1626W) opened to sterile field. 16:22:36 MBrace Wrist Support ([id number]) opened to sterile field. 16:22:39 EMERALD Guide Wire (695-847) opened to sterile field. 16:22:40 SHEATH 6FR RAIN ([id number]) opened to sterile field. 16:22:54 A MULTIPACK Pigtail 5 Fr catheter was advanced over the wire and used for Procedure. 16:23:55 Catheter removed. 16:31:14 Versed 0.5 mg I.V. was administered by Parmjit Benoit RN; for sedation; 16:31:45 Aorta too tortuous, prepping Rt Brachial 16:31:52 Local anesthetic to right brachial artery with Lidocaine 2% by Manuel Valentin MD.ADDITIONAL ACCESS 16:34:36 Fentanyl 50 mcg I.V. was administered by Parmjit Benoit RN; for sedation; 16:38:23 Versed 0.5 mg I.V. was administered by Parmjit Benoit RN; for sedation; 16:40:36 Fentanyl 25 mcg I.V. was administered by Parmjit Benoit RN; for sedation; 16:41:37 NEEDLE Cook 21G 4cm Radial ([id number]) opened to sterile field. 16:45:14 Fentanyl 25 mcg I.V. was administered by Parmjit Benoit RN; for sedation; 16:49:50 SHEATH 6FR Willow (THM475) opened to sterile field. 16:49:56 EXOSEAL 6Fr (EX600) opened to sterile field. 16:50:15 Sheath removed intact; hemostasis achieved with Exoseal to the Right Femoral artery. 16:52:31 Versed 0.5 mg I.V. was administered by Parmjit Benoit RN; for sedation; 17:00:14 unable to gain brachial access, moving back to radial approach. 17:01:09 Local anesthetic to right radial artery with Lidocaine 2% by Manuel Valentin MD.ADDITIONAL ACCESS 17:03:45 unable to gain access. 17:03:50 Procedure ended.(Physican Out) 17:04:06 Fluoroscopy time 02.10 minutes. 17:04:55 Flurop Dose total: 58 17:04:55 Fluoroscopy dose: 58 mGy 17:04:59 Contrast amount:Isovue 300 0ml. 17:05:14 Sharps counted by scrub and verified by R.N. 17:05:17 Insertion/operative site no bleeding no hematoma. 17:05:21 Post-op/insertion site Right Radial artery dressed using a Bandaid. 17:05:23 Post-op/insertion site Right Femoral artery dressed using a 4 x 4 and Tegaderm. 17:05:26 Post-op/insertion site Right Brachial artery dressed using a Bandaid. 17:05:31 Post right femoral artery:stable, soft, clean and dry 17:05:40 Post right radial artery:stable, soft, clean and dry 17:05:54 Post right brachial artery:stable, soft, clean and dry 17:06:10 Post Procedure Pulses reassessed and unchanged 17:06:13 Post-procedure physical assessment completed. ASA score P 3 - A patient with severe systemic disease as per Manuel Valentin MD. 17:06:21 Post procedure rhythm: unchanged. 17:06:23 Estimated blood loss: 5 ml 17:06:24 Post procedure instruction explained to patient.Patient verbalizes understanding. 17:06:24 Patient needs reinforcement of post procedure teaching. 17:06:34 Procedure type changed to Cath procedure, Diagnostic procedure, Sedation Charges, Moderate Sedation up to 45 minutes 17:06:59 Procedure and supply charges have been captured, reviewed, submitted and are correct. 17:07:02 Procedure Complication : No complications 17:07:04 Vital chart was stopped 17:07:04 See physician's report for complete and final results. 17:07:07 Report given to PCU. 17:07:10 Patient transfered to PCU with Stretcher. 17:07:12 Procedure ended. 17:07:12 Full Disclosure recording stopped 17:07:18 End room use (Document Last) Device Usage Item Name Manufacture Quantity Catalog Hospital Part Current Minima l Lot# / Number Charge Number Stock Stock Serial# Code SHEATH 6FR Teleflex 1 CL-09298 [id number] [id number] 177576 5 ARROW 45cm (CL-02866) DIAGNOSTIC Cardinal 1 [id number] 643476 50752 [id number] 30 MultipRowl 5Fr catheter set (AK6701) ACIST Acist 1 92402 520950 815041 894182 20 Syringe Medical (64814) Systems Inc Medline Medline 1 [id number] 406426 48463 468907 5 Cath Pack ([id number]) Bag Microtek 1 2001S 697978 74917 182845 5 Decanter Medical Inc. () ACIST Hand Acist 1 47986 986231 601494 696719 5 Control Medical (49242) Systems Inc ACIST Acist 1 16181 403548 824514 746060 5 Manifold Medical (68945) Systems Inc Tegaderm 4 3M 1 1626W 623353 411125 195565 5 x 4 (1626W) MBrace Advanced 1 140-0250-00 715280 37434 049452 5 Wrist Vascular Support Dynamics ([id number]) EMERALD Cardinal 1 502-455 085292 148249 765786 5 Guide Wire Health (502455) SHEATH 6FR Cardinal 1 6903468 542643 5175583 422394 5 [facility] (8041774) MULTIPACK Cardinal 1 790715 5 Pigtail 5 Health Fr catheter NEEDLE Cook Elecsnet Medical 1 L69551 282601 766557 632894 5 21G 4cm Radial (E20725) SHEATH 6FR Terumo 1 RAT728 346982 523958 026844 40 Willow (ELJ841) EXOSEAL 6Fr Cardinal 1 EX600 627858 796738 673984 10 (EX600) Health Signature Audit [place] Stage Time Signature Unsigned Intra-Procedure 09/27/2018 Bryant Fall 5:08:00 PM RT(R) Signatures Performing Physician : Signature : Manuel Valentin MD Date : Time : Nurse : Parmjit Lorigan Signature : RN Date : Time : Monitor : Bryant Fall RT Signature : Date : Time : [place] [address] [place] [address]
[~2018-09-24 16:24] MED LIST changes: +CATAPRES0.1 MG PO; +FERROUS FUMARA324 MG PO; +PROTONIX40 MG PO; +ULORIC40 MG PO; +ZOFRAN4 MG PO
[2018-09-24 17:01] VITALS: BP 165/96
[2018-09-24 17:02] LABS: BASOPHILS 0.2 % (0-2); EOSINOPHILS 2.5 % (0-7); HEMATOCRIT 33.6 % (36.0-48.0); HEMOGLOBIN 10.1 g/dL (12-16); IMMATURE GRANULOCYTES 0.4 % (0-5); LYMPHOCYTES 20.7 % (15-50); MCH 27.6 pg (26.0-34.0); MCHC 30.1 g/dL (31.0-37.0); MCV 91.8 fL (80.0-100.0); MEAN PLATELET VOLUME 10.6 fL (7.4-10.4); MONOCYTES 10.3 % (2-11); NEUTROPHILS 65.9 % (40-80); PLATELET COUNT 241 10x3/uL (130-400); RBC 3.66 10x6/uL (4.00-5.40); RDW 13.8 % (11.5-14.5); WBC 8.3 10x3/uL (4.8-10.8)
[2018-09-24 17:06] VITALS: BP 92/41
[2018-09-24 17:12] LABS: APTT 32.9 SECONDS (22.8-39.4); INR 1.5 (0.85-1.17); PROTIME 17.5 SECONDS (11.6-15.0)
[2018-09-24 17:20] LABS: ALKALINE PHOSPHATASE 64 U/L (46-116); ALT (SGPT) 10 U/L (10-68); BILIRUBIN - TOTAL 0.35 mg/dL (0.2-1.3); CALC OSMOLALITY 292 mosm/kg (275-300); CALCIUM 8.4 mg/dL (8.5-10.1); CARBON DIOXIDE 36.1 mmol/L (21.0-32.0); CHLORIDE - SERUM 103 mmol/L (98-107); GLUCOSE 129 mg/dL (74-106); POTASSIUM - SERUM 3.7 mmol/L (3.5-5.1); PROTEIN - SERUM 5.8 g/dL (6.4-8.2); SODIUM 141 mmol/L (136-145); UREA NITROGEN 41 mg/dL (7-18); eGFR NON AFRICAN AMERICAN 16 mL/min (90-120)
[2018-09-24 17:21] VITALS: BP 134/56
--- NOTE | 2018-09-24 17:22 | NUR ---
PT STATED THAT CP WAS 8/10 PRIOR TO FIRST SL NITRO, RATES CP 6/10 FOLLOWING FIRST NITRO. TREATING PROVIDER NOTIFIED.
[2018-09-24 17:32] LABS: CKMB 0.6 U/L (0.0-3.6); CREATINE KINASE 32 UL (21-215); MAGNESIUM - SERUM 2.2 mg/dL (1.8-2.4); PRO BNP 2959 pg/mL (0-450)
[2018-09-24 18:01] VITALS: BP 156/55
--- NOTE | 2018-09-24 19:01 | NUR ---
HAND OFF REPORT GIVEN TO GIFTY BAEZ
[2018-09-24] MEDS ORDERED: HYDROCODON-ACE1 EA10 PO (21:21)
[2018-09-25] VITALS (7 sets, daily range): BP systolic 124–196; BP diastolic 64–80; Ht 147.3 cm; Wt 66.3 kg
[2018-09-25 05:03] LABS: BASOPHILS 0.4 % (0-2); EOSINOPHILS 3.5 % (0-7); HEMATOCRIT 30.7 % (36.0-48.0); HEMOGLOBIN 9.1 g/dL (12-16); IMMATURE GRANULOCYTES 0.7 % (0-5); LYMPHOCYTES 26.6 % (15-50); MCH 26.8 pg (26.0-34.0); MCHC 29.6 g/dL (31.0-37.0); MCV 90.6 fL (80.0-100.0); MEAN PLATELET VOLUME 10.5 fL (7.4-10.4); MONOCYTES 12.7 % (2-11); NEUTROPHILS 56.1 % (40-80); PLATELET COUNT 198 10x3/uL (130-400); RBC 3.39 10x6/uL (4.00-5.40); RDW 13.7 % (11.5-14.5); WBC 7.2 10x3/uL (4.8-10.8)
[2018-09-25 05:13] LABS: CALCIUM 8.2 mg/dL (8.5-10.1); CARBON DIOXIDE 34.5 mmol/L (21.0-32.0); CREATININE - SERUM 2.8 mg/dL (0.6-1.3); POTASSIUM - SERUM 3.5 mmol/L (3.5-5.1)
--- NOTE | 2018-09-25 06:00 | NUR ---
PT SLEPT THROUGH THE NIGHT. NS @ 75ML/HR INFUSING TO KATIE. DAUGHTER AT BEDSIDE. REQUESTED AND RECIEVED PAIN PILL X 1 FOR HER CHRONIC PAIN ISSUES. CLEAN AND DRY ON EACH ROUND WITH MEAT SCRUBBER CHANGING HER ON ONE ROUND. CALL LIGHT IN REACH. MONITOR AND CPOC.
--- NOTE | 2018-09-25 07:15 | NUR ---
RESTING QUIETLY EYES CLOSED RESP UNLABORED SKIN W/D COLOR WNL NAD NOTED
--- NOTE | 2018-09-25 16:47 | MORECARE ---
CASE MANAGEMENT DISCHARGE SUMMARY PATIENT: MICHELLE MEDRANO UNIT: [id number] ADM DATE: 09/24/18 AGE: 83 : [birth year] SEX: F ROOM/BED: D.7 AUTHOR: DEESAN MONTELONGO PHYSICIAN: REFERRING PHYSICIAN: DEVEN CEJA MD DATE OF SERVICE: 09/25/18 Discharge Plan Patient Name: MICHELLE MEDRANO Facility: [facility]:[place] : 1935 Planned Disposition: Anticipated Discharge Date: Discharge Date: Expected LOS: Initial Reviewer: [email or web address] Initial Review Date: 09/24/2018 Generated: 09/25/18 5:47 pm Coverage Notice Reviewer: [email or web address] Ethan Dorado Notice Issued Date-Time: 09/25/2018 16:00 Notice Type: Medicare Outpatient Observation Notice Notice Delivered To: Family Member Relationship to Patient: Daughter Av Specialist Name: maty beavers Delivery Method: PHONE - Phone Shannon Days: Prior Verbal Notification: Recipient Understood Notice: Yes Recipient Signature: Yes Med Rec Note Co-signed by Attending: Coverage Notice Comment: Patient Name: MICHELLE MEDRANO Page [phone] at 1647 All edits/amendments must be made on the electronic document DICTATION DATE: 09/25/181646 CHANNEL CEMENTER OUTSOLE MACHINE: SILVIA 09/25/181646 RPT#: [id number] DC DATE: STATUS: ADM IN [facility] [address] [place] [address] END OF REPORT
--- NOTE | 2018-09-25 20:00 | NUR ---
INITIAL ROUNDS AND ASSESSMENT COMPLETED. PT RESTING IN BED WITH DAUGHTER AT BEDSIDE. ALERT/ORIENTED. OGLALA [place]. SR PER TELEMETRY. O2 @ 2L/NC WITH NONLABORED RESPIRATIONS. NS @ 75ML/HR INFUSING TO KATIE PIV. PT IS MAX CARE AND DAUGHTER ASSISTS HER WHEN IN THE ROOM. MONITOR AND CPOC.
[2018-09-26] VITALS: BP 144/66
--- NOTE | 2018-09-26 01:39 | NUR ---
PT RESTING WITH EYES CLOSED. RESPS EVEN/NONLABORED. CHECKED BY PHYSICIAN ASSISTANT, CLEAN AND DRY. CPOC.
[2018-09-26 04:30] VITALS: BP 157/71
--- NOTE | 2018-09-26 05:46 | NUR ---
PT AWAKE. C/O HEADACHE/BACKACHE/ALL OVER PAIN. MEDICATED WITH NORCO, CRUSHED AND GIVEN IN APPLESAUCE. CURRENTLY CLEAN AND DRY. CALL LIGHT IN REACH.
[2018-09-26 06:12] LABS: CALCIUM 7.9 mg/dL (8.5-10.1); CARBON DIOXIDE 32.6 mmol/L (21.0-32.0); CREATININE - SERUM 2.6 mg/dL (0.6-1.3); POTASSIUM - SERUM 3.6 mmol/L (3.5-5.1)
[2018-09-26 08:04] VITALS: BP 146/63
[2018-09-26 10:52] VITALS: BP 121/61
--- NOTE | 2018-09-26 14:37 | NUR ---
CONSENTS SIGNED FOR [facility]. WILL CONT. PLAN OF CARE.
[2018-09-26 14:40] VITALS: BP 127/55
[2018-09-26 20:00] VITALS: BP 108/75
--- NOTE | 2018-09-26 20:17 | NUR ---
INITIAL ROUNDS AND ASSESSMENT COMPLETED. PT RESTING IN BED WITH DAUGHTER AT BEDSIDE. WILL BE NPO AFTER MIDINGHT FOR HEART CATH IN AM. IV NS @ 75ML/HR INFUSING TO KATIE. SR PER TELEMETRY. MONITOR AND CPOC.
[2018-09-27] VITALS: BP 155/69
--- NOTE | 2018-09-27 01:08 | NUR ---
PT RESTING WITH EYES CLOSED. IVF TURNED OFF D/T PT COMPLAINING ABOUT NOT BEING ABLE TO MOVE HER ARM AND IT MAKING IT WHERE SHE CANNOT SLEEP. EARLIER, PT CALLED NURSE TO ROOM AND COMPLAINED THAT PARQUETRY LAYER HAD LEFT HER "UNFINISHED". PT WAS CLEAN/DRY WITH NEW GOWN IN PLACE AND LAYING ON NEW PADS WITH CLEAN SHEETS. EXPLAINED TO PATIENT THAT IT APPEARED CARE HAD BEEN PROVIDED. PT STILL INSISTS SHE WAS "LEFT UNFINISHED". WILL MONITOR.
[2018-09-27 04:30] VITALS: BP 116/86
--- NOTE | 2018-09-27 07:15 | NUR ---
RECEIVED PT IN BED EYES CLOSED RESP UNLABORED NAD NOTED
[2018-09-27 08:55] VITALS: BP 154/75
--- NOTE | 2018-09-27 12:52 | NUR ---
Nutrition follow-up: Diet: ADA mechanical soft PO intake ~63% average x last 6 meals WT: 165# Labs reviewed RDN following.
--- NOTE | 2018-09-27 15:39 | NUR ---
Pt transferred to mill laborer at this time. Preop meds given.
--- NOTE | 2018-09-27 17:39 | NUR ---
Pt back in room. Wrist protector noted on right wrist. Dressing to right groin C/D/I. Pt awake and alert. Able to answer questions appropriately. On 2.5L of O2 via nc.
[2018-09-27 18:15] VITALS: BP 164/63
--- NOTE | 2018-09-27 19:39 | NUR ---
RESUMING PATIENT CARE. PATIENT IS ALERT AND ORIENTED. RESPIRATIONS ARE EVEN AND UNLABORED. NO S/S OF DISTRESS. NO C/O PAIN. NO SIGN OF OF BLEEDING OR BRUISING ON RIGHT RADIAL OR GROIN. DENIES NEEDS AT THIS TIME. CALL LIGHT WITHIN REACH. WILL CPOC.
[2018-09-27 20:00] VITALS: BP 129/69
[2018-09-28] VITALS: BP 153/61
[2018-09-28 04:00] VITALS: BP 146/68
[2018-09-28 08:07] VITALS: BP 175/76
[2018-09-28 12:22] VITALS: BP 134/71
[2018-09-28 16:19] VITALS: BP 178/79
--- NOTE | 2018-09-28 19:32 | NUR ---
RESUMING PATIENT CARE. PATIENT IS ALERT AND ORIENTED. RESPIRATIONS ARE EVEN AND UNLABORED. PATIENT REMAINS ON 2.5L NC. NO S/S OF DISTRESS. NO C/O PAIN. CALL LIGHT WITHIN REACH. WILL CPOC.
[2018-09-28 20:00] VITALS: BP 145/73
[2018-09-29] VITALS: BP 150/70
[2018-09-29 04:00] VITALS: BP 164/81
[2018-09-29 08:01] LABS: ANION GAP 11.6 mmol/L (8-16); CALCIUM 8.1 mg/dL (8.5-10.1); CARBON DIOXIDE 27.9 mmol/L (21.0-32.0); CREATININE - SERUM 2.1 mg/dL (0.6-1.3); POTASSIUM - SERUM 3.5 mmol/L (3.5-5.1)
[2018-09-29 08:40] VITALS: BP 164/75
--- NOTE | 2018-09-29 10:00 | NUR ---
PRE-OPS GIVEN. TO CATHODE RAY TUBE SALVAGE PROCESSOR BY BED.
--- NOTE | 2018-09-29 11:43 | NUR ---
BACK FROM ELECTRICAL SYSTEMS DESIGNER. VS WNL. RIGHT WRIST STABLE WITH TR BAND INTACT. WILL MONITOR.
[2018-09-29 12:27] VITALS: BP 143/77
--- NOTE | 2018-09-29 13:07 | NUR ---
Nutrition follow-up: Diet: ADA consistent CHO mechanical soft PO intake 75% of last 3 meals NPO for heart cath today Labs reviewed Wt: 146# - standing scale. +BM PO intake improving. RDN following.
--- NOTE | 2018-09-29 15:30 | NUR ---
TR BAND DCD WITHOUT BLEEDING OR HEMATOMA NOTED.
[2018-09-29 16:00] VITALS: BP 134/56
--- NOTE | 2018-09-29 19:30 | NUR ---
RESUMING PATIENT CARE. PATIENT IS ALERT AND ORIENTED, RESTING COMFORTABLY IN BED. RESPIRATIONS ARE EVEN AND UNABORED. NO S/S OF DISTRESS. NO C/O PAIN. DENIES NEEDS. CALL LIGHT WITHIN REACH. WILL CPOC.
[2018-09-29 20:00] VITALS: BP 139/69
[2018-09-30] VITALS: BP 143/64
[2018-09-30 04:30] VITALS: BP 162/75
[2018-09-30 08:32] VITALS: BP 141/70
[2018-09-30 11:50] VITALS: BP 128/76
[2018-09-30] MEDS ORDERED: ASPIRIN81 MG PO (13:31)
[2018-09-30] MEDS ORDERED: PLAVIX75 MG PO (13:31)
--- NOTE | 2018-09-30 13:44 | MORECARE ---
CASE MANAGEMENT DISCHARGE SUMMARY PATIENT: MICHELLE MEDRANO UNIT: [id number] ADM DATE: 09/28/18 AGE: 83 : [birth year] SEX: F ROOM/BED: D.7 AUTHOR: DESEAN MONTELONGO PHYSICIAN: REFERRING PHYSICIAN: DEVEN CEJA MD DATE OF SERVICE: 09/30/18 Discharge Plan Patient Name: MICHELLE MEDRANO [facility] [facility] 1935 Planned Disposition: Anticipated Discharge Date: Discharge Date: Expected LOS: Initial Reviewer: [email or web address] Initial Review Date: 09/24/2018 Generated: 09/30/18 2:44 pm External Providers External Provider: [facility] Next Contact Date: 09/30/2018 Service Request Date: Service Type: Resolution: Reviewer: Comments: Coverage Notice Reviewer: [email or web address] Ethan Dorado Notice Issued Date-Time: 09/25/2018 16:00 Notice Type: Medicare Outpatient Observation Notice Notice Delivered To: Family Member Relationship to Patient: Daughter Pastoral Assistant Name: maty beavers Delivery Method: PHONE - Phone Shannon Days: Prior Verbal Notification: Recipient Understood Notice: Yes Recipient Signature: Yes Med Rec Note Co-signed by Attending: Coverage Notice Comment: Reviewer: [email or web address] - Galileo Martinez Notice Issued Date-Time: 09/30/2018 13:25 Notice Type: IM Discharge Notice Notice Delivered To: Patient Relationship to Patient: Pastoral Assistant Name: Delivery Method: HAND - Hand Delivered Shannon Days: Prior Verbal Notification: Recipient Understood Notice: Yes Recipient Signature: Yes Med Rec Note Co-signed by Attending: Coverage Notice Comment: Last DP export: 09/25/18 3:47 p Patient Name: MICHELLE MEDRANO Page [phone] at 1344 All edits/amendments must be made on the electronic document DICTATION DATE: 09/30/18 134 RADIO ANTENNA INSTALLER: SILVIA 09/30/18 1344 RPT#: [id number] DC DATE: STATUS: ADM IN [facility] [address] [place] [address] END OF REPORT
--- NOTE | 2018-09-30 13:59 | MORECARE ---
CASE MANAGEMENT DISCHARGE SUMMARY PATIENT: MICHELLE MEDRANO UNIT: [id number] ADM DATE: 09/28/18 AGE: 83 : 33 SEX: F ROOM/BED: D.2117 AUTHOR: JAYDA,DOC PHYSICIAN: REFERRING PHYSICIAN: DEVEN CEJA MD DATE OF SERVICE: 09/30/18 Discharge Plan Patient Name: MICHELLE MEDRANO Facility: [facility]:[place] : 1935 Planned Disposition: Home with Home Health Anticipated Discharge Date: 09/30/18 Discharge Date: Expected LOS: 2 Initial Reviewer: [email or web address] Initial Review Date: 09/24/2018 Generated: 09/30/18 2:59 pm DCPIA - Discharge Planning Initial Assessment Updated by [email or web address]: Galileo Martinez on 09/30/18 1:57 pm * Is the patient Alert and Oriented? Yes * How many steps to enter\exit or inside your home? NONE * PCP Rick LAMAR * Pharmacy [facility]. * Preadmission Environment Home with Family * ADLs Partial Dependent * Partial ADLs (Assistance needed) Ambulation Bathing Medication Management Transfers * Equipment Bedside [facility] Bed Nebulizer Oxygen Rolling Walker Shower Chair Walker Wheelchair * Other Equipment HOME AND PORTABLE OXYGEN [facility] - MEDICAL EQUIPMENT PROVIDER * List name and contact numbers for known caregivers / representatives who currently or will assist patient after discharge: MELVIN MUPRHY DTR, [place] [phone] * Verbal permission to speak to the caregivers and representatives has been obtained from the patient. Yes * Community resources currently utilized Home Health * Please name any agencies selected above. [facility], PT, OT, SPEECH, NURSING, AIDE * Additional services required to return to the preadmission environment? No * Can the patient safely return to the preadmission environment? Yes * Has this patient been hospitalized within the prior 30 days at any hospital? No Coverage Notice Reviewer: [id number] Ethan Dorado Notice Issued Date-Time: 09/25/2018 16:00 Notice Type: Medicare Outpatient Observation Notice Notice Delivered To: Family Member Relationship to Patient: Daughter Chair Inspector Name: melvin ruthann Delivery Method: PHONE - Phone Shannon Days: Prior Verbal Notification: Recipient Understood Notice: Yes Recipient Signature: Yes Med Rec Note Co-signed by Attending: Coverage Notice Comment: Reviewer: [id number] - Galileo Martinez Notice Issued Date-Time: 09/30/2018 13:25 Notice Type: IM Discharge Notice Notice Delivered To: Patient Relationship to Patient: Chair Inspector Name: Delivery Method: HAND - Hand Delivered Shannon Days: Prior Verbal Notification: Recipient Understood Notice: Yes Recipient Signature: Yes Med Rec Note Co-signed by Attending: Coverage Notice Comment: Last DP export: 09/30/18 12:44 p Patient Name: MICHELLE MEDRANO Page 16381 at 1359 All edits/amendments must be made on the electronic document DICTATION DATE: 09/30/18 135 INFORMATION TECHNOLOGY INTERN: SILVIA 09/30/18 1359 RPT#: [id number] DC DATE: STATUS: ADM IN [facility] [address] [place] [address] END OF REPORT
--- NOTE | 2018-09-30 14:04 | NUR ---
IV AND TELEMETRY DCD. DC PLANS GIVEN. UNDERSTANDING VOICED. ESCORTED TO CAR BY W/C.
--- NOTE | 2018-09-30 14:06 | MORECARE ---
CASE MANAGEMENT DISCHARGE SUMMARY PATIENT: MICHELLE MEDRANO UNIT: [id number] ADM DATE: 09/28/18 AGE: 83 : 33 SEX: F ROOM/BED: D.9792 AUTHOR: JAYDA,DOC PHYSICIAN: REFERRING PHYSICIAN: DEVEN CEJA MD DATE OF SERVICE: 09/30/18 Discharge Plan Patient Name: MICHELLE MEDRANO Facility: [facility]:[place] : 1935 Planned Disposition: Home with Home Health Anticipated Discharge Date: 09/30/18 Discharge Date: 09/30/2018 Expected LOS: 2 Initial Reviewer: [email or web address] Initial Review Date: 09/24/2018 Generated: 09/30/18 3:06 pm Comments DCP- Discharge Planning Updated by [email or web address]: Galileo Martinez on 09/30/18 1:[address] Patient Name: MICHELLE MEDRANO Admission Status: ER Accout number: [id number] Admission Date: 09-28-2018 : 1935 Admission Diagnosis:ANGINA PECTORIS, UNSPECIFIED Attending: JESSE CEJA Current LOS: 2 Anticipated DC Date: 09-30-2018 Planned Disposition: Home with Home Health Primary Insurance: [employer] CHOICE PPO [facility] PLANNED EXTERNAL PROVIDER: [facility] Discharge Planning Comments: CM MET WITH PT AND DAUGHTER IN ROOM TO DISCUSS DISCHARGE PLANNING AND NEEDS. MICHELLE MEDRANO provided verbal consent to discuss current and ongoing needs with/in the presence of: DAUGHTER, MELVIN, WHO PT REPORTS TAKES CARE OF ALL OF HER BUSINESS FOR HER. PT REPORTS LIVING AT HOME DEPENDENTLY WITH HER DAUGHTER; PT REQUIRES ASSITANCE WITH TRANSFERS, BALANCE, BATH, MEDICATIONS. PT HAS "EVERYTHING" AT HOME FROM [facility]; BEDSIDE [facility], HOSPITAL BED, NEBULIZER, HOME AND PORTABLE OXYGEN, THREE WALKERS AND WHEELCHAIR. MEDICAL EQUIPMENT PROVIDER IS [facility]. PT HAS HOME HEALTH WITH [facility] FOR NURSING, AIDE SERVICE, PT, OT AND SPEECH SERVICES. CM DISCUSSED AVAILABILITY OF HOME HEALTH, REHAB SERVICES AND MEDICAL EQUIPMENT. PT DENIES DISCHARGE NEEDS OTHER THAN HOME HEALTH RESUMPTION. PT REPORTS HER DAUGHTER IS HERE AND WILL PICK HER UP FOR DISCHARGE HOME TODAY. IMPORTANT MESSAGE FROM MEDICARE PROVIDED AND EXPLAINED. CHOICE LETTER FOR [place] SIGNED. CM CALLED [facility], , SPOKE TO BRIAN WHO TOOK REFERRAL INFORMATION AND WILL PLACE PT BACK ON SCHEDULE FOR RESUMPTION OF HOME HEALTH CARE. CM FAXED DISCHARGE INFORMATION TO [facility] AT [phone]. Associate Professor Of Biology: Galileo Martinez DCPIA - Discharge Planning Initial Assessment Updated by [email or web address]: Galileo Martinez on 09/30/18 1:57 pm * Is the patient Alert and Oriented? Yes * How many steps to enter\\exit or inside your home? NONE * PCP Rick LAMAR * [facility]acy [facility]. * Preadmission Environment Home with Family * ADLs Partial Dependent * Partial ADLs (Assistance needed) Ambulation Bathing Medication Management Transfers * Equipment Bedside [facility] Bed Nebulizer Oxygen Rolling Walker Shower Chair Walker Wheelchair * Other Equipment HOME AND PORTABLE OXYGEN [facility] - MEDICAL EQUIPMENT PROVIDER * List name and contact numbers for known caregivers / representatives who currently or will assist patient after discharge: MELVIN MURPHY DTR, [place] [phone] * Verbal permission to speak to the caregivers and representatives has been obtained from the patient. Yes * Community resources currently utilized Home Health * Please name any agencies selected above. [facility], PT, OT, SPEECH, NURSING, AIDE * Additional services required to return to the preadmission environment? No * Can the patient safely return to the preadmission environment? Yes * Has this patient been hospitalized within the prior 30 days at any hospital? No Coverage Notice Reviewer: [email or web address] Ethan Dorado Notice Issued Date-Time: 09/25/2018 16:00 Notice Type: Medicare Outpatient Observation Notice Notice Delivered To: Family Member Relationship to Patient: Daughter Improvement Lead Name: melvin murphy Delivery Method: PHONE - Phone Shannon Days: Prior Verbal Notification: Recipient Understood Notice: Yes Recipient Signature: Yes Med Rec Note Co-signed by Attending: Coverage Notice Comment: Reviewer: [id number] - Galileo Martinez Notice Issued Date-Time: 09/30/2018 13:25 Notice Type: IM Discharge Notice Notice Delivered To: Patient Relationship to Patient: Improvement Lead Name: Delivery Method: HAND - Hand Delivered Shannon Days: Prior Verbal Notification: Recipient Understood Notice: Yes Recipient Signature: Yes Med Rec Note Co-signed by Attending: Coverage Notice Comment: Last DP export: 09/30/18 12:59 p Patient Name: MICHELLE MEDRANO Page 89220 at 1406 All edits/amendments must be made on the electronic document DICTATION DATE: 09/30/181405 JOB PLACEMENT COUNSELOR: SILVIA 09/30/181405 RPT#: [id number] DC DATE:09/30/18 STATUS: DIS IN [facility] [address] [place] [address] END OF REPORT
--- NOTE | 2018-10-01 11:13 | HP ---
PATIENT: MICHELLE MEDRANO MEDICAL RECORD: [id number] ACCOUNT: [id number] LOCATION:[address] : [birth year] ADMISSION DATE: 09/28/18 PCP: DARIN LAMAR DO HISTORY AND PHYSICAL EXAMINATION ADMITTING DIAGNOSES: 1. Unstable angina class IV. 2. Coronary artery disease. 3. Previous percutaneous transluminal coronary angioplasty stent, last being of 09/22. 4. Hypertension. 5. Hyperlipidemia. 6. Chronic obstructive pulmonary disease. 7. Past smoking history. HISTORY OF PRESENT ILLNESS: Mrs. Medrano presents with a 2-day history of increasing unstable anginal symptomatology. She has a past history of coronary artery disease. Last cardiac stent being . She as well has been profoundly short of breath. She is having episodes of chest pain at rest. It has rapidly progressed over the past 2 days. She has not had any changes in her medication. She is on losartan and carvedilol for the chest discomfort. She does have renal insufficiency. Her creatinine is 3.0. PHYSICAL EXAMINATION: GENERAL APPEARANCE: Well-nourished, well-developed, appears stated age. Level of distress, comfortable. PSYCHIATRIC: Mental status, alert, normal affect. Orientation, oriented to time, place and person. EYES: Lids and conjunctiva, noninjected. No discharge, no pallor. ENT: Lips, teeth, gums, normal dentition. Oropharynx, no cyanosis, no pallor. NECK: Carotid arteries, bilateral normal upstroke, no bruits, no thrills. JUGULAR VEINS: No jugular venous pressure or distention. CERVICAL LYMPH NODES: Nontender, nonenlarged. THYROID: Not enlarged. Nontender. No nodules. LUNGS: Respiratory effort, unlabored. CHEST: Normal curvature. No thoracic deformity. No chest wall tenderness. Percussion, resonant. Auscultation, clear. No wheezes, no rales, no rhonchi. CARDIOVASCULAR: Precordial exam, nondisplaced. No heaves or pericardial thrills. Rate and rhythm, regular. Heart sounds, normal S1, normal S2. No S3, no gallop, no rub. Systolic murmur, not heard. Diastolic murmur, not heard. EXTREMITIES: No cyanosis, no edema. Peripheral pulses, full and equal in all extremities, except as noted. No bruits appreciated. ABDOMEN: Soft, nondistended. Normal aorta. No bruit. Nontender. No masses. Liver, nontender, no hepatomegaly. Spleen, nontender, no splenomegaly. MUSCULOSKELETAL: No joint tenderness. No joint swelling. No erythema. NEUROLOGICAL: Normal gait, normal strength, normal tone. SKIN: Warm and dry. OVERALL IMPRESSION: Unstable anginal symptomatology at this time. Her BNP is elevated, but troponin is normal. Chest x-ray does not show pulmonary edema. We will add a nitrate and increase her beta wilfred secondary to tachycardia and high blood pressure. She continues to have the chest discomfort despite maximal medical therapy, would consider repeat cardiac catheterization. TRANSINT:[id number] Voice Confirmation ID: [id number] DOCUMENT ID: [id number] HISTORY AND PHYSICAL [id number] MICHELLE MEDRANO, DEVEN MADERA at 1113 CC: [id number] DICTATION DATE: 09/24/181912 PRINTED CIRCUIT BOARD DRAFTER: 09/24/182032 DIS IN 09/30/18 [facility] [address] [place] [address]
--- NOTE | 2018-10-01 11:14 | OP ---
PATIENT NAME: MICHELLE MEDRANO MEDICAL RECORD: [id number] :[birth year] LOCATION:D.M2 D.2117 ADMISSION DATE:09/28/18 SURGEON: DEVEN CEJA MD DATE OF OPERATION: 09/27/2018 PROCEDURE: Attempted heart catheterization, failed secondary to inability to gain arterial access. DESCRIPTION OF PROCEDURE: After informed was obtained with detailed description of risks and benefits as well as alternative therapies, the patient elected to proceed with angiogram and heart catheterization. The right femoral area was prepped and draped in normal sterile fashion. The right femoral artery was cannulated via modified Seldinger technique with placement of 6-Vietnamese sheath. However, her iliac and aorta were too tortuous. We placed the 645 Arrow sheath and it was still too tortuous to advance any catheter through the 645 Arrow sheath. We turned our attention to the radial. We were able to cannulate the radial artery; however, the wire would not pass past the elbow. We then tried for brachial and we could not cannulate the brachial artery. OVERALL IMPRESSION: Inability to gain arterial access for cardiac intervention. At this time, I would optimize medical management. TRANSINT:[id number] Voice Confirmation ID: [id number] DOCUMENT ID: [id number] DEVEN CEJA MD at 1114 CC: [id number] DICTATION DATE: 09/27/181710 MEMORIAL ADVISER: 09/27/18 1735 DIS IN 09/30/18 [place] [id number] [place] [id number]
--- NOTE | 2018-10-01 11:14 | OP ---
PATIENT NAME: MICHELLE MEDRANO MEDICAL RECORD: [id number] :31 LOCATION:D.M2 D.2117 ADMISSION DATE:09/28/18 SURGEON: DEVEN CEJA MD DATE OF OPERATION: 09/29/2018 DATE OF SERVICE: 09/29/2018 PROCEDURES: 1. PTCA stent LAD. 2. PTCA stent left circumflex. 3. IFR LAD. 4. IFR RCA. 5. Left heart catheterization. 6. Selective coronary angiography. 7. Left ventriculogram. INDICATION: Angina and coronary artery disease. DESCRIPTION OF PROCEDURE: After informed consent was obtained and after a detailed description of risks, benefits as well as alternative therapies, the patient elected to proceed with angiogram and angioplasty. The right radial area was prepped and draped in normal sterile fashion. Right radial artery was cannulated via modified Seldinger technique with placement of 6-Bruneian sheath. All catheters exchanged through this sheath. FINDINGS: Left ventriculogram was performed in standard 30-degree DESHPANDE view, reveals good cardiac wall motion, ejection fraction is 60%. SELECTIVE CORONARY ANGIOGRAPHY: 1. Left main is with no significant angiographic disease. 2. Left anterior descending has a previously placed stent with greater than 70% in-stent restenosis. IFR was abnormal at 0.85. 3. Left circumflex has 95% stenosis in the mid vessel. 4. The right coronary has previously placed stents, these are widely patent. There is questionable stenosis in the distal vessel; however, IFR was normal at 0.99. PTCA STENT OF THE LAD: The stent used was a 3.5 x 24 mm Cobra. Result was 0% residual stenosis. PTCA STENT OF THE LEFT CIRCUMFLEX: The stent used was a 3.0 x 12 mm Cobra. Result was 0% residual stenosis. OVERALL IMPRESSION: Successful percutaneous transluminal coronary angioplasty stent of the left anterior descending and circumflex, both going from 70-95% initial stenosis to 0% residual. TRANSINT:[id number] Voice Confirmation ID: [id number] DOCUMENT ID: [id number] OPERATIVE REPORT [id number] MICHELLE MEDRANO DEVEN CEJA MD at 1114 CC: [id number] DICTATION DATE: 09/29/18 1115 CONTRACT PROJECT MANAGER: 09/29/18 1124 DIS IN 09/30/18 [facility] [address] [facility] [place] [address]
== END 2018-09-30 14:05 | disposition home health service (06) | DRG 249 ==
LOC: D.ER 16:24 → D.M2 18:29 → OBSVTIME 18:29 → D.M2 18:29
PROVIDERS: Family Medicine; ADMIT Internal Medicine Interventional Cardiology; ATTEND Internal Medicine Interventional Cardiology
PROC: B2111ZZ Fluoroscopy of Multiple Coronary Arteries using Low Osmolar Contrast (ICD-10-PCS; 2018-09-29)
PROC: B2151ZZ Fluoroscopy of Left Heart using Low Osmolar Contrast (ICD-10-PCS; 2018-09-29)
PROC: 4A033BC Measurement of Arterial Pressure, Coronary, Percutaneous Approach (ICD-10-PCS; 2018-09-29)
PROC: 02713EZ Dilation of Coronary Artery, Two Arteries with Two Intraluminal Devices, Percutaneous Approach (ICD-10-PCS; principal; 2018-09-29 10:05)
PROC: 4A023N7 Measurement of Cardiac Sampling and Pressure, Left Heart, Percutaneous Approach (ICD-10-PCS; 2018-09-29 10:05)
DX: I25.110 Atherosclerotic heart disease of native coronary artery with unstable angina pectoris (principal); I50.22 Chronic systolic (congestive) heart failure; E78.5 Hyperlipidemia, unspecified; J44.9 Chronic obstructive pulmonary disease, unspecified; Z87.891 Personal history of nicotine dependence; I11.0 Hypertensive heart disease with heart failure

== ENCOUNTER 2018-11-18 11:18 | Inpatient (IN) | payer MEDICARE ==
[~2018-11-18] VITALS: Ht 147.3 cm; Wt 79.4 kg
[~2018-11-18 11:18] MED LIST changes: +ASPIRIN81 MG PO; +HYDROCODON-ACE1 EA10 PO
[2018-11-18] MEDS ORDERED: PEPCID AC20 MG PO (11:28)
[2018-11-18 12:21] LABS: APPEARANCE CLEAR (CLEAR); BILIRUBIN NEGATIVE (NEGATIVE); COLOR YELLOW (YELLOW); GLUCOSE NEGATIVE (NEGATIVE); KETONE NEGATIVE (NEGATIVE); NITRITE NEGATIVE (NEGATIVE); PROTEIN NEGATIVE (NEGATIVE); UROBILINOGEN NORMAL (NORMAL)
[2018-11-18 12:21] LABS: BASOPHILS 0.4 % (0-2); EOSINOPHILS 4.3 % (0-7); HEMATOCRIT 30.8 % (36.0-48.0); HEMOGLOBIN 10.1 g/dL (12-16); IMMATURE GRANULOCYTES 0.3 % (0-5); LYMPHOCYTES 21.7 % (15-50); MCH 25.8 pg (26.0-34.0); MCHC 32.8 g/dL (31.0-37.0); MCV 78.6 fL (80.0-100.0); MEAN PLATELET VOLUME 10.1 fL (7.4-10.4); MONOCYTES 7.1 % (2-11); NEUTROPHILS 66.2 % (40-80); RBC 3.92 10x6/uL (4.00-5.40); RDW 14.3 % (11.5-14.5); WBC 7.6 10x3/uL (4.8-10.8)
[2018-11-18 12:26] LABS: ANION GAP 12.6 mmol/L (8-16); BILIRUBIN - TOTAL 0.12 mg/dL (0.2-1.3); CALCIUM 8.8 mg/dL (8.5-10.1); CARBON DIOXIDE 28.6 mmol/L (21.0-32.0); CREATININE - SERUM 6.6 mg/dL (0.6-1.3); POTASSIUM - SERUM 4.2 mmol/L (3.5-5.1); PROTEIN - SERUM 5.8 g/dL (6.4-8.2)
[2018-11-18 12:31] LABS: PLATELET COUNT 257 10x3/uL (130-400)
[2018-11-18 12:32] LABS: TROPONIN-I 0.024 ng/mL (0.000-0.060)
[2018-11-18 13:00] VITALS: BP 116/60
--- NOTE | 2018-11-18 13:27 | NUR ---
REPORT TO , RN. PATIENT TO BE ADMITTED TO ROOM 213
--- NOTE | 2018-11-18 13:50 | MORECARE ---
CASE MANAGEMENT DISCHARGE SUMMARY PATIENT: MICHELLE MEDRANO UNIT: [id number] ADM DATE: 11/18/18 AGE: 83 : 33 SEX: F ROOM/BED: D.2130 AUTHOR: DESEAN MONTELONGO PHYSICIAN: REFERRING PHYSICIAN: JAGJIT PEÑA MD DATE OF SERVICE: 11/18/18 Discharge Plan Patient Name: MICHELLE MEDRANO Facility: [facility]:[place] : 1935 Planned Disposition: Anticipated Discharge Date: Discharge Date: Expected LOS: Initial Reviewer: [email or web address] Initial Review Date: 11/18/2018 Generated: 11/18/18 2:49 pm Patient Name: MICHELLE MEDRANO Page 12010 at 1350 All edits/amendments must be made on the electronic document DICTATION DATE: 11/18/18 134 AGENT TELEGRAPHER: SILVIA 11/18/18 1349 RPT#: [id number] DC DATE: STATUS: ADM IN [facility] [address] [place] [address] END OF REPORT
--- NOTE | 2018-11-18 14:17 | NUR ---
RECEIVED PT FROM ER WITH FAMILY AND NURSING STAFF. PT IS AAO AND BEDFAST. RR EVEN AND UNLABORED ON 2L 02. VSS AND WNL. DAUGHTER AT BEDSIDE. NO S/S OF DISTRESS NOTED. PT CURRENTLY LYING SEMI FOWLERS. CALL LIGHT W/I REACH. FALL PRECAUTIONS IN PLACE. WILL CTM.
[2018-11-18 14:59] LABS: ERYTHROCYTE SEDIMENTATION RATE 8 mm/hr (0-42)
[2018-11-18 16:11] VITALS: BP 148/51; BMI 36.6
[2018-11-18 16:45] VITALS: BP 127/49
[2018-11-18 21:21] VITALS: BP 124/58
[2018-11-19 00:55] VITALS: BP 102/64
--- NOTE | 2018-11-19 03:36 | NUR ---
I have reviewed this patient and I concur with the Shift Assessment completed by the Licensed Practical Nurse today this shift.
[2018-11-19 06:29] LABS: BASOPHILS 0 % (0-2); EOSINOPHILS 0 % (0-7); HEMATOCRIT 28.4 % (36.0-48.0); HEMOGLOBIN 9.5 g/dL (12-16); IMMATURE GRANULOCYTES 0.2 % (0-5); LYMPHOCYTES 16.3 % (15-50); MCH 25.8 pg (26.0-34.0); MCHC 33.5 g/dL (31.0-37.0); MCV 77.2 fL (80.0-100.0); MEAN PLATELET VOLUME 10.2 fL (7.4-10.4); MONOCYTES 3.2 % (2-11); NEUTROPHILS 80.3 % (40-80); PLATELET COUNT 268 10x3/uL (130-400); RBC 3.68 10x6/uL (4.00-5.40); RDW 13.9 % (11.5-14.5)
[2018-11-19 06:42] VITALS: BP 110/41
[2018-11-19 06:55] LABS: ANION GAP 13.8 mmol/L (8-16); CALCIUM 8.8 mg/dL (8.5-10.1); CARBON DIOXIDE 28.5 mmol/L (21.0-32.0); CREATININE - SERUM 6.5 mg/dL (0.6-1.3); PHOSPHOROUS 3.6 mg/dL (2.5-4.9); POTASSIUM - SERUM 4.3 mmol/L (3.5-5.1)
[2018-11-19 07:05] LABS: WBC 4.4 10x3/uL (4.8-10.8)
--- NOTE | 2018-11-19 07:19 | NUR ---
REPORT RECEIVED. WILL CONTINUE WITH POC. PT CURRENTLY LYING SUPINE. CALL LIGHT W/I REACH. FAMILY AT BEDSIDE. RR EVEN AND UNLABORED ON 2L 02. NS INFUSING @50ML/HR VIA L.HAND PIV. NO S/S OF DISTRESS NOTED. PT DENIES ANY NEEDS. WILL CTM.
[2018-11-19 08:30] VITALS: BP 150/72
[2018-11-19 13:29] VITALS: Ht 147.3 cm; Wt 79.4 kg
[2018-11-19 13:45] VITALS: BP 131/53
--- NOTE | 2018-11-19 14:48 | NUR ---
I have reviewed this patient and I concur with the Shift Assessment completed by the Licensed Practical Nurse today this shift.
--- NOTE | 2018-11-19 15:42 | MORECARE ---
CASE MANAGEMENT DISCHARGE SUMMARY PATIENT: MICHELLE MEDRANO UNIT: [id number] ADM DATE: 11/18/18 AGE: 83 : 33 SEX: F ROOM/BED: D.2130 AUTHOR: DESEAN MONTELONGO PHYSICIAN: REFERRING PHYSICIAN: JAGJIT PEÑA MD DATE OF SERVICE: 11/19/18 Discharge Plan Patient Name: MICHELLE MEDRANO Facility: [facility]:[place] : 1935 Planned Disposition: Home with Home Health Anticipated Discharge Date: Discharge Date: Expected LOS: Initial Reviewer: [email or web address] Initial Review Date: 11/19/2018 Generated: 11/19/18 4:42 pm DCPIA - Discharge Planning Initial Assessment Updated by [email or web address]: Rubi Nieto on 11/19/18 3:42 pm * Is the patient Alert and Oriented? Yes * How many steps to enter\exit or inside your home? * PCP BRIANDA * Pharmacy [facility] * Preadmission Environment Home with Family * ADLs Total Dependent * Other Equipment HOSPITAL BED, SC, BSC, WALKER, W/C, NEBULIZER, HOME 02 / PORTABLE ([facility]) * List name and contact numbers for known caregivers / representatives who currently or will assist patient after discharge: MELVIN MURPHY - DAUGHTER - [phone] * Verbal permission to speak to the caregivers and representatives has been obtained from the patient. Yes * Community resources currently utilized Home Health * Please name any agencies selected above. [facility] * Additional services required to return to the preadmission environment? No * Can the patient safely return to the preadmission environment? Yes * Has this patient been hospitalized within the prior 30 days at any hospital? No Last DP export: 11/18/18 12:50 p Patient Name: MICHELLE MEDRANO Page [id number] at 1542 All edits/amendments must be made on the electronic document DICTATION DATE: 11/19/18 1542 BARK SPUDDER: SILVIA 11/19/18 1542 RPT#: [id number] DC DATE: STATUS: ADM IN [facility] [address] [place] [address] END OF REPORT
--- NOTE | 2018-11-19 16:06 | MORECARE ---
CASE MANAGEMENT DISCHARGE SUMMARY PATIENT: MICHELLE MEDRANO UNIT: [id number] ADM DATE: 11/18/18 AGE: 83 : 33 SEX: F ROOM/BED: D.6770 AUTHOR: JAYDA,DOC PHYSICIAN: REFERRING PHYSICIAN: JAGJIT PEÑA MD DATE OF SERVICE: 11/19/18 Discharge Plan Patient Name: MICHELLE MEDRANO Facility: [facility]:[place] : 1935 Planned Disposition: Home with Home Health Anticipated Discharge Date: Discharge Date: Expected LOS: Initial Reviewer: [email or web address] Initial Review Date: 11/19/2018 Generated: 11/19/18 5:05 pm Comments DCP- Discharge Planning Updated by [email or web address]: Rubi Nieto on 11/19/18 2:[address] Patient Name: MICHELLE MEDRANO Admission Status: ER Accout number: [id number] Admission Date: 11-18-2018 : 1935 Admission Diagnosis: Attending: JAGJIT PEÑA Current LOS: 1 Anticipated DC Date: Planned Disposition: Home with Home Health Primary Insurance: [employer] CHOICE PPO [employer] Discharge Planning Comments: CM met with patient to complete initial dc planning assessment. CM educated patient on the CM role and verbal consent given by patient to complete assessment. Patient lives at home with daughter where she is total care. Patient's daughter is her primary caregiver. At discharge patient plans to return home and feels this is a safe discharge. CM discussed availability of home health, rehab services, and medical equipment. Patient has [facility] and plans to resume care with them upon discharge. YAW signed Patient has a nebulizer and home o2/ portable 02 ( [facility]). Patient has hospital bed, shower chair, BSC, walker, wheelchair. Patient denied known discharge needs at this time. CM will continue to follow and will assist as needed with dc plans/needs. Active Directory Architect: Rubi Nieto DCPIA - Discharge Planning Initial Assessment Updated by [email or web address]: Rubi Nieto on 11/19/18 3:42 pm * Is the patient Alert and Oriented? Yes * How many steps to enter\exit or inside your home? * PCP BRIANDA * Pharmacy [facility] * Preadmission Environment Home with Family * ADLs Total Dependent * Other Equipment HOSPITAL BED, SC, BSC, WALKER, W/C, NEBULIZER, HOME 02 / PORTABLE ([facility]) * List name and contact numbers for known caregivers / representatives who currently or will assist patient after discharge: MELVIN MURPHY - DAUGHTER - [phone] * Verbal permission to speak to the caregivers and representatives has been obtained from the patient. Yes * Community resources currently utilized Home Health * Please name any agencies selected above. [facility] * Additional services required to return to the preadmission environment? No * Can the patient safely return to the preadmission environment? Yes * Has this patient been hospitalized within the prior 30 days at any hospital? No Last DP export: 11/19/18 2:42 p Patient Name: MICHELLE MEDRANO Page 33700 at 1606 All edits/amendments must be made on the electronic document DICTATION DATE: 11/19/181604 INSTRUMENT INSTALLER: SILVIA 11/19/181604 RPT#: [id number] DC DATE: STATUS: ADM IN [facility] [address] [place] [address] END OF REPORT
[2018-11-19 16:08] LABS: SPE - A/G RATIO 1.2 (0.7-1.7); SPE - ALBUMIN 3.1 g/dL (2.9-4.4); SPE - ALPHA-1 GLOBULIN 0.2 g/dL (0.0-0.4); SPE - ALPHA-2 GLOBULIN 0.8 g/dL (0.4-1.0); SPE - BETA GLOBULIN 1.1 g/dL (0.7-1.3); SPE - GAMMA GLOBULIN 0.5 g/dL (0.4-1.8); SPE - M-SPIKE Not Observed g/dL (Not Observed); SPE - TOTAL PROTEIN 5.7 g/dL (6.0-8.5)
[2018-11-19 16:32] VITALS: BP 130/43
[2018-11-19 16:41] LABS: CREATININE - URINE 55.5 mg/dL (30-125); PRO/CRE RATIO URINE 0.6 mg/g
[2018-11-19 20:00] VITALS: BP 126/54
[2018-11-20] VITALS: BP 129/53
[2018-11-20 04:00] VITALS: BP 153/60
[2018-11-20 05:49] LABS: BASOPHILS 0.1 % (0-2); EOSINOPHILS 0.4 % (0-7); HEMATOCRIT 28.1 % (36.0-48.0); HEMOGLOBIN 9.3 g/dL (12-16); IMMATURE GRANULOCYTES 0.4 % (0-5); MCH 26.3 pg (26.0-34.0); MCHC 33.1 g/dL (31.0-37.0); MEAN PLATELET VOLUME 10.1 fL (7.4-10.4); MONOCYTES 7.5 % (2-11); NEUTROPHILS 79.6 % (40-80); PLATELET COUNT 238 10x3/uL (130-400); RBC 3.54 10x6/uL (4.00-5.40); RDW 14.2 % (11.5-14.5)
[2018-11-20 06:19] LABS: CALCIUM 8.4 mg/dL (8.5-10.1); CARBON DIOXIDE 26.9 mmol/L (21.0-32.0); CREATININE - SERUM 5.8 mg/dL (0.6-1.3); POTASSIUM - SERUM 3.9 mmol/L (3.5-5.1)
[2018-11-20 06:21] LABS: % SATURATION 16 % (15-55); IRON 42 ug/dl (35-150); TOTAL IRON BIND CAPACITY 252 ug/dl (260-445); UNSAT IRON BIND CAPACITY 210 ug/dl (150-375)
[2018-11-20 06:44] LABS: MCV 79.4 fL (80.0-100.0); WBC 13.3 10x3/uL (4.8-10.8)
--- NOTE | 2018-11-20 07:40 | NUR ---
PT AWAKE AND OREITNED WHEN I ENTERED, NO COMPLAINTS/CONCERNS, ALL QUESTIONS ANSWERED. NO FAMILY PRESNT AT BEDSIDE. CL MLEACH, SRX2.
[2018-11-20 08:30] VITALS: BP 141/40
--- NOTE | 2018-11-20 10:41 | NUR ---
I have reviewed this patient and I concur with the Shift Assessment completed by the Licensed Practical Nurse today this shift.
[2018-11-20 12:45] VITALS: BP 146/52
[2018-11-20 16:45] VITALS: BP 151/57
--- NOTE | 2018-11-20 18:28 | NUR ---
PT AWAKE AND ORIENTED, HAS BEEN PLESANT ALL DAY. NO COMPLAINTS/CONCERNS, FAMILY HAS BEEN AT BEDSIDE ALL DAY. CL INR EACH, SRX2.
--- NOTE | 2018-11-20 19:30 | NUR ---
RECEIVED REPORT, WILL ASSUME CARE OF PT, PT ASKING FOR PAIN MEDS, WILL GIVE NORCO ORDERED, BED IS LOW, SRX2, CALL LIGHT IN REACH, WILL CONTINUE PLAN OF CARE
--- NOTE | 2018-11-20 20:10 | NUR ---
GAVE NORCO, CRUSHED IS APPLESAUCE, GAVE PT A BEDBATH/LINEN CHANGED, PT IS LYING ON R.SIDE, BED IS LOW, SRX2, CALL LIGHT IN REACH, WILL CONTINUE PLAN OF CARE
[2018-11-20 22:06] VITALS: BP 140/49
--- NOTE | 2018-11-20 23:27 | NUR ---
REPOSITIONED PATIENT IN BED. PLACED CALL LIGHT IN REACH AND LOWERED PATIENT BED.
--- NOTE | 2018-11-21 01:09 | NUR ---
I have reviewed this patient and I concur with the Shift Assessment completed by the Licensed Practical Nurse today this shift.
[2018-11-21 01:25] VITALS: BP 137/57; BP 140/49
[2018-11-21 05:20] VITALS: BP 155/72
[2018-11-21 05:42] LABS: BASOPHILS 0.1 % (0-2); EOSINOPHILS 4.6 % (0-7); HEMATOCRIT 28.3 % (36.0-48.0); HEMOGLOBIN 9.1 g/dL (12-16); IMMATURE GRANULOCYTES 0.5 % (0-5); LYMPHOCYTES 17.2 % (15-50); MCH 25.6 pg (26.0-34.0); MCHC 32.2 g/dL (31.0-37.0); MCV 79.7 fL (80.0-100.0); MONOCYTES 7.3 % (2-11); NEUTROPHILS 70.3 % (40-80); PLATELET COUNT 239 10x3/uL (130-400); RBC 3.55 10x6/uL (4.00-5.40); RDW 14.2 % (11.5-14.5); WBC 10.5 10x3/uL (4.8-10.8)
[2018-11-21 06:05] LABS: ANION GAP 11.5 mmol/L (8-16); CALCIUM 8.4 mg/dL (8.5-10.1); CREATININE - SERUM 4.8 mg/dL (0.6-1.3); POTASSIUM - SERUM 3.5 mmol/L (3.5-5.1)
[2018-11-21 08:33] VITALS: BP 162/60
--- NOTE | 2018-11-21 10:59 | NUR ---
I have reviewed this patient and I concur with the Shift Assessment completed by the Licensed Practical Nurse today this shift.
[2018-11-21 12:30] VITALS: BP 151/74
[2018-11-21 16:30] VITALS: BP 110/65
--- NOTE | 2018-11-21 18:10 | NUR ---
PT HAD A WATERY B.M 2 TIMES TODAY FOLLOWIN HER A.M DOSE OF MIRALAX. CHANGED BEDDING, CLEANED PT, REPLACED PUREWICK TO FRESH CATHETER. FAMILY AT BEDSIDE. NOC OMPLAINTS/CONCERNS VOICED, ALL QUESTIONS ANSWERED. CL IN REACH, SRX2.
--- NOTE | 2018-11-21 19:20 | NUR ---
RECEIVED REPORT, WILL ASSUME CARE OF PT, SLEEPING ON R.SIDE, BED IS LOW, SRX2, CALL LIGHT IN REACH, WILL CONTINUE PLAN OF CARE
[2018-11-21 20:05] VITALS: BP 156/42
--- NOTE | 2018-11-21 22:48 | NUR ---
CLEANED PT UP/REPOSITION PT, CALL LIGHT IN REACH, WILL CONTINUE PLAN OF CARE
[2018-11-22 00:08] VITALS: BP 146/60
[2018-11-22 04:15] VITALS: BP 142/70
[2018-11-22 05:43] LABS: BASOPHILS 0.1 % (0-2); EOSINOPHILS 4.5 % (0-7); HEMATOCRIT 27.1 % (36.0-48.0); HEMOGLOBIN 8.8 g/dL (12-16); IMMATURE GRANULOCYTES 0.6 % (0-5); LYMPHOCYTES 15.2 % (15-50); MCH 25.8 pg (26.0-34.0); MCHC 32.5 g/dL (31.0-37.0); MCV 79.5 fL (80.0-100.0); MEAN PLATELET VOLUME 9.9 fL (7.4-10.4); MONOCYTES 7.2 % (2-11); NEUTROPHILS 72.4 % (40-80); PLATELET COUNT 245 10x3/uL (130-400); RBC 3.41 10x6/uL (4.00-5.40); RDW 14.4 % (11.5-14.5); WBC 10.8 10x3/uL (4.8-10.8)
[2018-11-22 05:58] LABS: ANION GAP 13.1 mmol/L (8-16); CARBON DIOXIDE 26.5 mmol/L (21.0-32.0); CREATININE - SERUM 3.9 mg/dL (0.6-1.3); POTASSIUM - SERUM 3.6 mmol/L (3.5-5.1)
--- NOTE | 2018-11-22 06:51 | NUR ---
I have reviewed this patient and I concur with the Shift Assessment completed by the Licensed Practical Nurse today this shift.
--- NOTE | 2018-11-22 07:05 | NUR ---
PT RESTING PEACEFULLY, BREATHS EVEN, REGULAR, AND UNLABORED. NO SIGNS/SYMPTOMS OF ACUTE DISTRESS. DAUGHTER AT BEDSIDE. ALL QUESTIONS ANSWERED, NO COMPLAINTS/CONCERNS. CL IN REACH, SRX2.
[2018-11-22 08:14] VITALS: BP 152/69
[2018-11-22 11:17] VITALS: BP 135/66
--- NOTE | 2018-11-22 13:54 | NUR ---
Nutrition Follow-up: Pt sleeping. Spoke with daughter. She reports pt has not been eating very much but is drinking Nepro with meals. Diet: Renal ADA, Mechanical Soft No new wt Last BM: 11/22 Labs reviewed Meds reviewed May consider lower protein diet (45-60 g) 2/2 CKD [address] dialysis[address] RD following.
[2018-11-22 15:09] LABS: UPE RAND - ALBUMIN 11.4 % (()); UPE RAND - ALPHA 1 GLOBULIN 19.2 % (()); UPE RAND - ALPHA 2 GLOBULIN 17.6 % (()); UPE RAND - GAMMA GLOBULIN 19.8 % (())
[2018-11-22 15:23] VITALS: BP 168/74
--- NOTE | 2018-11-22 19:05 | NUR ---
EVENING ROUNDS COMPLETE, PT LAYING IN BED, NO SIGNS OF DISTRESS. VSS, AAO X4, PT DENIES ANY PAIN AT THIS TIME. CL IN REACH, BED IN LOWEST POSITION, CONT WITH POC.
[2018-11-22 20:00] VITALS: BP 187/78
[2018-11-23] VITALS: BP 173/70
[2018-11-23 04:00] VITALS: BP 131/74
--- NOTE | 2018-11-23 07:52 | NUR ---
RECIEVED REPORT. RESTING IN BED WITH EYES CLOSED. DAUGHTER AT BEDSIDE. REQUESTING PAIN MEDICATION. RESPIRATIONS EVEN AND REGULAR. CONTINUE PAIN MANAGEMENT ORDERED. CONTINUE PLAN OF CARE AND SAFETY PRECAUTIONS.
[2018-11-23 07:57] LABS: BASOPHILS 0.2 % (0-2); EOSINOPHILS 4.5 % (0-7); HEMOGLOBIN 8.9 g/dL (12-16); IMMATURE GRANULOCYTES 0.5 % (0-5); LYMPHOCYTES 18.4 % (15-50); MCH 25.3 pg (26.0-34.0); MCHC 31.8 g/dL (31.0-37.0); MCV 79.5 fL (80.0-100.0); MEAN PLATELET VOLUME 10.4 fL (7.4-10.4); MONOCYTES 8.6 % (2-11); NEUTROPHILS 67.8 % (40-80); PLATELET COUNT 252 10x3/uL (130-400); RBC 3.52 10x6/uL (4.00-5.40); RDW 14.4 % (11.5-14.5)
[2018-11-23 08:20] LABS: ANION GAP 11.9 mmol/L (8-16); CALCIUM 8.3 mg/dL (8.5-10.1); CARBON DIOXIDE 29.6 mmol/L (21.0-32.0); CREATININE - SERUM 3.1 mg/dL (0.6-1.3); POTASSIUM - SERUM 3.5 mmol/L (3.5-5.1)
[2018-11-23 08:39] VITALS: BP 163/81
[2018-11-23 11:34] VITALS: BP 168/84
[2018-11-23 15:42] VITALS: BP 183/79
--- NOTE | 2018-11-23 17:13 | MORECARE ---
CASE MANAGEMENT DISCHARGE SUMMARY PATIENT: MICHELLE MEDRANO UNIT: [id number] ADM DATE: 11/18/18 AGE: 83 : 33 SEX: F ROOM/BED: D.2138 AUTHOR: JAYDA,DOC PHYSICIAN: REFERRING PHYSICIAN: JAJGIT PEÑA MD DATE OF SERVICE: 11/23/18 Discharge Plan Patient Name: MICHELLE MEDRANO Facility: [facility]:[place] : 1935 Planned Disposition: Home with Home Health Anticipated Discharge Date: 11/24/18 Discharge Date: Expected LOS: 6 Initial Reviewer: [email or web address] Initial Review Date: 11/19/2018 Generated: 11/23/18 6:13 pm Comments DCP- Discharge Planning Updated by [email or web address]: Galileo Martinez on 11/23/18 4:[address] Patient Name: MICHELLE MEDRANO Encounter No: [id number] : 1935 Primary Insurance: [employer] PPO [employer] ADVANT Anticipated DC Date: 11-24-2018 Planned Disposition: Home with Home Health External Planned Provider: [facility] DCP follow-up note: CM MET WITH PT AND DAUGHTER IN ROOM TO DISCUSS DISCHARGE NEEDS AND PLANNING. CM DISCUSSED AVAILABILITY OF HOME HEALTH, REHAB SERVICES AND MEDICAL EQUIPMENT. PT'S DAUGHTER REPORTS PT IS NOT GOING TO A SKILLED REHAB OR LONGTERM. DAUGHTER STATES SHE TAKES CARE OF PT AT HOME AND THEY WANT HOME HEALTH RESUMPTION WITH [facility], CHOICE HAS PREVIOUSLY BEEN SIGNED. PT'S DAUGHTER DENIES DISCHARGE NEEDS. DAUGHTER TO TRANSPORT HOME AT DISCHARGE. IMPORTANT MESSAGE FROM MEDICARE PROVIDED AND EXPLAINED. CM SPOKE TO AZALIA OF [facility] AT NURSES STATION, PROVIDED UPDATE AND NOTIFIED OF PT'S PLANNED DISCHARGE IN THE NEXT ONE TO TWO DAYS. AZALIA REPORTS [facility] WILL RESUME HOME HEALTH AFTER DISCHARGE. FOR DISCHARGE, NOTIFY [facility] AT [phone], FAX DISCHARGE INFORMATION TO [facility] AT [phone]. CM TO CONTINUE TO FOLLOW AND ASSIST NEEDED. MARY Naqvi DCP- Discharge Planning Updated by [id number]: Rubi Nieto on 11/19/18 2:[address] Patient Name: MICHELLE MEDRANO Admission Status: ER Accout number: [id number] Admission Date: 11-18-2018 : 10-1935 Admission Diagnosis: Attending: JAGJIT PEÑA Current LOS: 1 Anticipated DC Date: Planned Disposition: Home with Home Health Primary Insurance: [employer] CHOICE [facility] Discharge Planning Comments: CM met with patient to complete initial dc planning assessment. CM educated patient on the CM role and verbal consent given by patient to complete assessment. Patient lives at home with daughter where she is total care. Patient's daughter is her primary caregiver. At discharge patient plans to return home and feels this is a safe discharge. CM discussed availability of home health, rehab services, and medical equipment. Patient has [facility] and plans to resume care with them upon discharge. YAW signed Patient has a nebulizer and home o2/ portable 02 ( [facility]). Patient has hospital bed, shower chair, BSC, walker, wheelchair. Patient denied known discharge needs at this time. CM will continue to follow and will assist as needed with dc plans/needs. Cuff Slitter: Rubi Nieto DCPIA - Discharge Planning Initial Assessment Updated by [email or web address]: Rubi Nieto on 11/19/18 3:42 pm * Is the patient Alert and Oriented? Yes * How many steps to enter\exit or inside your home? * PCP BRIANDA * Pharmacy [facility] * Preadmission Environment Home with Family * ADLs Total Dependent * Other Equipment HOSPITAL BED, SC, BSC, WALKER, W/C, NEBULIZER, HOME 02 / PORTABLE ([facility]) * List name and contact numbers for known caregivers / representatives who currently or will assist patient after discharge: MELVIN MURPHY - DAUGHTER - [phone] * Verbal permission to speak to the caregivers and representatives has been obtained from the patient. Yes * Community resources currently utilized Home Health * Please name any agencies selected above. [facility] * Additional services required to return to the preadmission environment? No * Can the patient safely return to the preadmission environment? Yes * Has this patient been hospitalized within the prior 30 days at any hospital? No Coverage Notice Reviewer: [id number] - Galileo Martinez Notice Issued Date-Time: 11/23/2018 14:25 Notice Type: IM Discharge Notice Notice Delivered To: Family Member Relationship to Patient: Daughter Group Dynamics Instructor Name: MELVIN MURPHY Delivery Method: HAND - Hand Delivered Shannon Days: Prior Verbal Notification: Recipient Understood Notice: Yes Recipient Signature: Yes Med Rec Note Co-signed by Attending: Coverage Notice Comment: Last DP export: 11/19/18 3:06 p Patient Name: MICHELLE MEDRANO Page 54634 at 1713 All edits/amendments must be made on the electronic document DICTATION DATE: 11/23/181712 MOTOR VEHICLE TECHNICIAN: SILVIA 11/23/181712 RPT#: [id number] DC DATE: STATUS: ADM IN [facility] [address] [place] [address] END OF REPORT
--- NOTE | 2018-11-23 19:00 | NUR ---
EVENING ROUDNS COMPLETE, PT LAYING IN BED. NO SIGNS OF DISTRESS. PT DENIES ANY PAIN AT THIS TIME. AAO X4. CL IN REACH, BED IN LOWEST POSITION. CONT WITH POC.
[2018-11-23 21:01] VITALS: BP 144/78
[2018-11-24] VITALS: BP 172/63
[2018-11-24 04:00] VITALS: BP 157/71
[2018-11-24 06:10] LABS: BASOPHILS 0.2 % (0-2); EOSINOPHILS 3.4 % (0-7); HEMATOCRIT 29.8 % (36.0-48.0); HEMOGLOBIN 9.5 g/dL (12-16); LYMPHOCYTES 13.9 % (15-50); MCH 25.5 pg (26.0-34.0); MCHC 31.9 g/dL (31.0-37.0); MCV 79.9 fL (80.0-100.0); MEAN PLATELET VOLUME 9.8 fL (7.4-10.4); MONOCYTES 9.3 % (2-11); NEUTROPHILS 72.2 % (40-80); PLATELET COUNT 245 10x3/uL (130-400); RBC 3.73 10x6/uL (4.00-5.40); RDW 14.7 % (11.5-14.5); WBC 12.5 10x3/uL (4.8-10.8)
[2018-11-24 06:23] LABS: ANION GAP 9.6 mmol/L (8-16); CALCIUM 9.1 mg/dL (8.5-10.1); CARBON DIOXIDE 30.6 mmol/L (21.0-32.0); CREATININE - SERUM 2.7 mg/dL (0.6-1.3); POTASSIUM - SERUM 3.2 mmol/L (3.5-5.1)
[2018-11-24 08:00] VITALS: BP 175/88
--- NOTE | 2018-11-24 08:20 | NUR ---
AM MEDS GIVEN AT THIS TIME. ALSO GAVE NORCO FOR PAIN LEVEL OF 6/10. PER DOCTOR TO GIVE NORCO EARLY. SYNTHETIC FILAMENT EXTRUDER AT BEDSIDE TO GET VITAL SIGNS. PT DENIES ANY OTHER NEEDS AT THIS TIME. CALL LIGHT IN REACH, FAMILY AT BEDSIDE, BEDSIDE RAILS X2, NAD NOTED, WILL CONTINUE TO MONITOR.
--- NOTE | 2018-11-24 11:15 | NUR ---
BLOOD SUGAR OF 127, NO COVERAGE NEEDED PER S/S. PT UP TO CHAIR, DRESSED AND READY TO GO, WAITING ON DISCHARGE PAPERS.
--- NOTE | 2018-11-24 11:51 | NUR ---
PROVIDED VERBAL AND WRITTEN DISCHARGE TEACHING TO PT AND FAMILY AT BEDSIDE, ALL VERBALIZED UNDERSTANDING REGARDING TEACHING. D/ LT HAND IV WITH CATHETER TIP INTACT. PT READY FOR WHEELCHAIR.
--- NOTE | 2018-11-24 12:27 | NUR ---
PT LEFT UNIT VIA WHEELCHAIR, WITH ALL BELONGINGS, ACCOMPANIED BY FAMILY, NAD NOTED.
--- NOTE | 2018-11-24 14:14 | NUR ---
OT NOTE: PT PERFORMED VERY WELL TODAY. BED MOB IWTH MIN ASSIST; SIMPLE GROOMING WITH MIN ASSIST; AMB INTO HALLWAY APPROX 16-20 FT WITH WALKER, MIN ASSIST, AND 02. TRANSFER TO CHAIR AND BED WITH MIN ASSIST. PT HAPPY TO GET TO GO HOME TODAY. BENI TENORIO, OTR/L
--- NOTE | 2018-11-24 14:33 | NUR ---
OT NOTE: PT COMPLETED SIT TO STAND WITH MIN A. PT COMPLETED ADL MOB WITH MIN A. PT COMPLETED FACE WASH WITH SET UP. PT DAUGHTER STATED SHE HAS HH. THANK YOU, ELI ABREU
--- NOTE | 2018-11-25 09:23 | MORECARE ---
CASE MANAGEMENT DISCHARGE SUMMARY PATIENT: MICHELLE MEDRANO UNIT: [id number] ADM DATE: 11/18/18 AGE: 83 : 33 SEX: F ROOM/BED: D.2130 AUTHOR: JAYDA,DOC PHYSICIAN: REFERRING PHYSICIAN: JAGJIT PEÑA MD DATE OF SERVICE: 11/25/18 Discharge Plan Patient Name: MICHELLE MEDRANO Facility: [facility]:[place] : 1935 Planned Disposition: Home with Home Health Anticipated Discharge Date: 11/24/18 Discharge Date: 11/24/2018 Expected LOS: 6 Initial Reviewer: [email or web address] Initial Review Date: 11/19/2018 Generated: 11/25/18 10:23 am Comments DCP- Discharge Planning Updated by [id number]: Galileo Martinez on 11/23/18 4:[address] Patient Name: MICHELLE MEDRANO Encounter No: [id number] : 1935 Primary Insurance: [employer] PPO [facility] Anticipated DC Date: 11-24-2018 Planned Disposition: Home with Home Health External Planned Provider: [facility] DCP follow-up note: CM MET WITH PT AND DAUGHTER IN ROOM TO DISCUSS DISCHARGE NEEDS AND PLANNING. CM DISCUSSED AVAILABILITY OF HOME HEALTH, REHAB SERVICES AND MEDICAL EQUIPMENT. PT'S DAUGHTER REPORTS PT IS NOT GOING TO A SKILLED REHAB OR FDC. DAUGHTER STATES SHE TAKES CARE OF PT AT HOME AND THEY WANT HOME HEALTH RESUMPTION WITH [facility], CHOICE HAS PREVIOUSLY BEEN SIGNED. PT'S DAUGHTER DENIES DISCHARGE NEEDS. DAUGHTER TO TRANSPORT HOME AT DISCHARGE. IMPORTANT MESSAGE FROM MEDICARE PROVIDED AND EXPLAINED. CM SPOKE TO AZALIA OF [facility] AT NURSES STATION, PROVIDED UPDATE AND NOTIFIED OF PT'S PLANNED DISCHARGE IN THE NEXT ONE TO TWO DAYS. AZALIA REPORTS [facility] WILL RESUME HOME HEALTH AFTER DISCHARGE. FOR DISCHARGE, NOTIFY [facility] AT [phone], FAX DISCHARGE INFORMATION TO [place] AT [phone]. CM TO CONTINUE TO FOLLOW AND ASSIST NEEDED. Galileo Martinez CASE BASHIR DCP- Discharge Planning Updated by [email or web address]: Rubi Nieto on 11/19/18 2:[address] Patient Name: MICHELLE MEDRANO Admission Status: ER Accout number: [id number] Admission Date: 11-18-2018 : 3076 Admission Diagnosis: Attending: JAGJIT PEÑA Current LOS: 1 Anticipated DC Date: Planned Disposition: Home with Home Health Primary Insurance: [employer] CHOICE PPO [facility] Discharge Planning Comments: CM met with patient to complete initial dc planning assessment. CM educated patient on the CM role and verbal consent given by patient to complete assessment. Patient lives at home with daughter where she is total care. Patient's daughter is her primary caregiver. At discharge patient plans to return home and feels this is a safe discharge. CM discussed availability of home health, rehab services, and medical equipment. Patient has [facility] and plans to resume care with them upon discharge. YAW signed Patient has a nebulizer and home o2/ portable 02 ( [facility]). Patient has hospital bed, shower chair, BSC, walker, wheelchair. Patient denied known discharge needs at this time. CM will continue to follow and will assist as needed with dc plans/needs. Lunch Counter Manager: Rubi Nieto DCPIA - Discharge Planning Initial Assessment Updated by [email or web address]: Rubi Nieto on 11/19/18 3:42 pm * Is the patient Alert and Oriented? Yes * How many steps to enter\exit or inside your home? * PCP BRIANDA * Pharmacy [facility] * Preadmission Environment Home with Family * ADLs Total Dependent * Other Equipment HOSPITAL BED, SC, BSC, WALKER, W/C, NEBULIZER, HOME 02 / PORTABLE ([facility]) * List name and contact numbers for known caregivers / representatives who currently or will assist patient after discharge: MELVIN MURPHY - DAUGHTER - [phone] * Verbal permission to speak to the caregivers and representatives has been obtained from the patient. Yes * Community resources currently utilized Home Health * Please name any agencies selected above. [facility] * Additional services required to return to the preadmission environment? No * Can the patient safely return to the preadmission environment? Yes * Has this patient been hospitalized within the prior 30 days at any hospital? No External Providers External Provider: [facility] Next Contact Date: 11/25/2018 Service Request Date: Service Type: Resolution: Reviewer: Comments: Coverage Notice Reviewer: [id number] - Galileo Martinez Notice Issued Date-Time: 11/23/2018 14:25 Notice Type: IM Discharge Notice Notice Delivered To: Family Member Relationship to Patient: Daughter Sign Wirer Name: MELVIN MURPHY Delivery Method: HAND - Hand Delivered Shannon Days: Prior Verbal Notification: Recipient Understood Notice: Yes Recipient Signature: Yes Med Rec Note Co-signed by Attending: Coverage Notice Comment: Last DP export: 11/23/18 4:13 p Patient Name: MICHELLE MEDRANO Page 41451 at 0923 All edits/amendments must be made on the electronic document DICTATION DATE: 11/25/18921 CAR BODY DESIGNER: SILVIA 11/25/18921 RPT#: [id number] DC DATE:11/24/18 STATUS: DIS IN [facility] [address] [place] [address] END OF REPORT
--- NOTE | 2018-11-25 09:30 | MORECARE ---
CASE MANAGEMENT DISCHARGE SUMMARY PATIENT: MICHELLE MEDRANO UNIT: [id number] ADM DATE: 11/18/18 AGE: 83 : 33 SEX: F ROOM/BED: D.2135 AUTHOR: JAYDA,DOC PHYSICIAN: REFERRING PHYSICIAN: JAGJIT PEÑA MD DATE OF SERVICE: 11/25/18 Discharge Plan Patient Name: MICHELLE MEDRANO Facility: [facility]:[place] : 1935 Planned Disposition: Home with Home Health Anticipated Discharge Date: 11/24/18 Discharge Date: 11/24/2018 Expected LOS: 6 Initial Reviewer: [id number] Initial Review Date: 11/19/2018 Generated: 11/25/18 10:30 am Comments DCP- Discharge Planning Updated by [id number]: Galileo Martinez on 11/25/18 8:[address] Patient Name: MICHELLE MEDRANO Encounter No: [id number] : 1935 Primary Insurance: [employer] CHOICE PPO [employer] Anticipated DC Date: 11-24-2018 Planned Disposition: Home with Home Health External Planned Provider: [facility] DCP follow-up note: CM REVIEWED CHART, PT DISCHARGED HOME LAST DATE. CM NOTIFIED BRIAN OF [facility] AT [phone], FAXED DISCHARGE INFORMATION TO [place] AT [phone]. CM TO CONTINUE TO FOLLOW AND ASSIST NEEDED. Galileo Martinez CASE MANAGEMENT DCP- Discharge Planning Updated by [email or web address]: Galileo Martinez on 11/23/18 4:[address] Patient Name: MICHELLE MEDRANO Encounter No: [id number] : 1935 Primary Insurance: [employer] CHOICE PPO [facility] ADVANT Anticipated DC Date: 11-24-2018 Planned Disposition: Home with Home Health External Planned Provider: [facility] DCP follow-up note: CM MET WITH PT AND DAUGHTER IN ROOM TO DISCUSS DISCHARGE NEEDS AND PLANNING. CM DISCUSSED AVAILABILITY OF HOME HEALTH, REHAB SERVICES AND MEDICAL EQUIPMENT. PT'S DAUGHTER REPORTS PT IS NOT GOING TO A SKILLED REHAB OR ASSISTED. DAUGHTER STATES SHE TAKES CARE OF PT AT HOME AND THEY WANT HOME HEALTH RESUMPTION WITH [facility], CHOICE HAS PREVIOUSLY BEEN SIGNED. PT'S DAUGHTER DENIES DISCHARGE NEEDS. DAUGHTER TO TRANSPORT HOME AT DISCHARGE. IMPORTANT MESSAGE FROM MEDICARE PROVIDED AND EXPLAINED. CM SPOKE TO AZALIA OF [facility] AT NURSES STATION, PROVIDED UPDATE AND NOTIFIED OF PT'S PLANNED DISCHARGE IN THE NEXT ONE TO TWO DAYS. AZALIA REPORTS [facility] WILL RESUME HOME HEALTH AFTER DISCHARGE. FOR DISCHARGE, NOTIFY [facility] AT [phone], FAX DISCHARGE INFORMATION TO [facility] AT [phone]. CM TO CONTINUE TO FOLLOW AND ASSIST NEEDED. Galileo Martinez, CASE MANAGEMENT DCP- Discharge Planning Updated by [email or web address]: Rubi Nieto on 11/19/18 2:[address] Patient Name: MICHELLE MEDRANO Admission Status: ER Accout number: [id number] Admission Date: 11-18-2018 : 1935 Admission Diagnosis: Attending: JAGJIT PEÑA Current LOS: 1 Anticipated DC Date: Planned Disposition: Home with Home Health Primary Insurance: [employer] PPO [facility] Discharge Planning Comments: CM met with patient to complete initial dc planning assessment. CM educated patient on the CM role and verbal consent given by patient to complete assessment. Patient lives at home with daughter where she is total care. Patient's daughter is her primary caregiver. At discharge patient plans to return home and feels this is a safe discharge. CM discussed availability of home health, rehab services, and medical equipment. Patient has [facility] and plans to resume care with them upon discharge. YAW signed Patient has a nebulizer and home o2/ portable 02 ( [facility]). Patient has hospital bed, shower chair, BSC, walker, wheelchair. Patient denied known discharge needs at this time. CM will continue to follow and will assist as needed with dc plans/needs. Front Loader Residential Driver: Rubi Nieto DCPIA - Discharge Planning Initial Assessment Updated by [email or web address]: Rubi Nieto on 11/19/18 3:42 pm * Is the patient Alert and Oriented? Yes * How many steps to enter\exit or inside your home? * PCP BRIANDA * [facility] * Preadmission Environment Home with Family * ADLs Total Dependent * Other Equipment HOSPITAL BED, SC, BSC, WALKER, W/C, NEBULIZER, HOME 02 / PORTABLE ([facility]) * List name and contact numbers for known caregivers / representatives who currently or will assist patient after discharge: MELVIN MURPHY - DAUGHTER - [phone] * Verbal permission to speak to the caregivers and representatives has been obtained from the patient. Yes * Community resources currently utilized Home Health * Please name any agencies selected above. [facility] * Additional services required to return to the preadmission environment? No * Can the patient safely return to the preadmission environment? Yes * Has this patient been hospitalized within the prior 30 days at any hospital? No Coverage Notice Reviewer: [id number] Ethan Martinez Notice Issued Date-Time: 11/23/2018 14:25 Notice Type: IM Discharge Notice Notice Delivered To: Family Member Relationship to Patient: Daughter Stripe Matcher Name: MELVIN MURPHY Delivery Method: HAND - Hand Delivered Shannon Days: Prior Verbal Notification: Recipient Understood Notice: Yes Recipient Signature: Yes Med Rec Note Co-signed by Attending: Coverage Notice Comment: Last DP export: 11/25/18 8:23 a Patient Name: MICHELLE MEDRANO Page 51215 at 0930 All edits/amendments must be made on the electronic document DICTATION DATE: 11/25/18929 WASTE MANAGEMENT RECYCLING TECHNICIAN: SILVIA 11/25/18929 RPT#: [id number] DC DATE:11/24/18 STATUS: DIS IN [facility] [address] [place] [address] END OF REPORT
== END 2018-11-24 12:31 | disposition home health service (06) | DRG 683 ==
LOC: D.ER 11:18 → D.M2 13:12
PROVIDERS: Family Medicine; ADMIT Internal Medicine Nephrology; ATTEND Internal Medicine Nephrology
DX: N17.9 Acute kidney failure, unspecified (principal); I13.0 Hypertensive heart and chronic kidney disease with heart failure and stage 1 through stage 4 chronic kidney disease, or unspecified chronic kidney disease; J44.1 Chronic obstructive pulmonary disease with (acute) exacerbation; I50.30 Unspecified diastolic (congestive) heart failure; N18.4 Chronic kidney disease, stage 4 (severe); E86.0 Dehydration; E11.22 Type 2 diabetes mellitus with diabetic chronic kidney disease; D63.1 Anemia in chronic kidney disease; K59.00 Constipation, unspecified; Z86.73 Personal history of transient ischemic attack (TIA), and cerebral infarction without residual deficits

== ENCOUNTER 2018-11-30 13:23 | Inpatient (IN) | payer MEDICARE ==
[~2018-11-30] VITALS: Ht 147.3 cm; Wt 70.7 kg
[~2018-11-30 13:23] MED LIST changes: +PEPCID AC20 MG PO
[2018-11-30] MEDS ORDERED: K-TAB10 MEQ PO (13:48)
[2018-11-30] MEDS ORDERED: COREG25 MG PO (13:49)
[2018-11-30 15:23] LABS: BASOPHILS 0.2 % (0-2); EOSINOPHILS 4.8 % (0-7); HEMATOCRIT 30.4 % (36.0-48.0); HEMOGLOBIN 9.4 g/dL (12-16); IMMATURE GRANULOCYTES 0.3 % (0-5); LYMPHOCYTES 14.7 % (15-50); MCHC 30.9 g/dL (31.0-37.0); MEAN PLATELET VOLUME 9.5 fL (7.4-10.4); MONOCYTES 8.7 % (2-11); NEUTROPHILS 71.3 % (40-80); PLATELET COUNT 226 10x3/uL (130-400); RBC 3.62 10x6/uL (4.00-5.40); RDW 16.5 % (11.5-14.5); WBC 8.8 10x3/uL (4.8-10.8)
[2018-11-30 15:38] LABS: APPEARANCE CLEAR (CLEAR); COLOR YELLOW (YELLOW)
[2018-11-30 15:39] LABS: BILIRUBIN NEGATIVE (NEGATIVE); GLUCOSE NEGATIVE (NEGATIVE); KETONE NEGATIVE (NEGATIVE); NITRITE NEGATIVE (NEGATIVE); PROTEIN 1+ mg/dL (NEGATIVE); SPECIFIC GRAVITY 1.015 (1.005-1.020); UROBILINOGEN NORMAL (NORMAL)
[2018-11-30 15:40] LABS: BACTERIA MODERATE /hpf (NEGATIVE); EPITHELIAL CELLS 0-5 /hpf (0-5); RED CELLS - URINE 0-5 /hpf (0-5); WHITE CELLS - URINE 25-50 /hpf (NEGATIVE)
[2018-11-30 15:42] LABS: ALBUMIN 2.9 g/dL (3.4-5.0); ALKALINE PHOSPHATASE 58 U/L (46-116); ALT (SGPT) 15 U/L (10-68); BILIRUBIN - TOTAL 0.35 mg/dL (0.2-1.3); CALC OSMOLALITY 293 mosm/kg (275-300); CALCIUM 8.6 mg/dL (8.5-10.1); CARBON DIOXIDE 31.3 mmol/L (21.0-32.0); CHLORIDE - SERUM 103 mmol/L (98-107); CREATININE - SERUM 2.3 mg/dL (0.6-1.3); GLUCOSE 101 mg/dL (74-106); POTASSIUM - SERUM 4.8 mmol/L (3.5-5.1); PROTEIN - SERUM 5.4 g/dL (6.4-8.2); SODIUM 139 mmol/L (136-145); UREA NITROGEN 56 mg/dL (7-18); eGFR NON AFRICAN AMERICAN 21 mL/min (90-120)
[2018-11-30 16:02] LABS: AMYLASE - SERUM 31 U/L (25-115); CREATINE KINASE 21 UL (21-215); LIPASE 104 U/L (73-393); MAGNESIUM - SERUM 2.2 mg/dL (1.8-2.4); PRO BNP 27494 pg/mL (0-450); TROPONIN-I 0.029 ng/mL (0.000-0.060)
[2018-11-30 16:05] LABS: CKMB 1.3 U/L (0.0-3.6)
[2018-11-30 17:05] VITALS: BP 136/80
--- NOTE | 2018-11-30 17:30 | NUR ---
PT TO NUCLEAR CT THEN NUCLEAR MED
--- NOTE | 2018-11-30 18:37 | NUR ---
PATIENT IS GONE TO NUCLEAR MED. UNABLE TO GIVE TIMED MEDS.
--- NOTE | 2018-11-30 18:59 | NUR ---
REPORT TO VITALIY ON MED 2
[2018-11-30 19:08] VITALS: BP 183/96
[2018-11-30 19:22] VITALS: BP 160/135
--- NOTE | 2018-11-30 19:53 | NUR ---
RECIEVED TO ROOM 2127 FROM ER VIA STRETCHER. PT A&O. RESPERATIONS NON LABORED ON O2 AT 2 LITERS VIA NC. PIV NOTED TO RIGHT UPPER ARM. PT DAUGHTER AT BED SIDE. MED REC AND HISTORY OBTAINED. PT CURRENTLY DENIES PAIN OR NEEDS, BED LOW, CL IN REACH.
[2018-11-30 20:15] VITALS: BP 185/90
--- NOTE | 2018-11-30 20:35 | NUR ---
DAUGHTER GONE HOME FOR THE NIGHT. THIS NURSE AT BED SIDE, FEEDING PT CHICKEN NOODLE SOUP.
--- NOTE | 2018-11-30 21:39 | NUR ---
HS MEDS GIVEN CRUSHED IN APPLE SAUCE. BS 114, NO COVERAGE PER S/S. REPOSITIONED IN BED FOR COMFORT. BED LOW, CL IN REACH.
[2018-12-01] VITALS (7 sets, daily range): BP systolic 143–187; BP diastolic 61–80; Ht 147.3 cm; Wt 70.7 kg
--- NOTE | 2018-12-01 04:32 | NUR ---
I have reviewed this patient and I concur with the Shift Assessment completed by the Licensed Practical Nurse today this shift.
[2018-12-01 06:43] LABS: BASOPHILS 0.3 % (0-2); EOSINOPHILS 4.4 % (0-7); HEMATOCRIT 29.3 % (36.0-48.0); HEMOGLOBIN 8.9 g/dL (12-16); IMMATURE GRANULOCYTES 0.4 % (0-5); LYMPHOCYTES 18.8 % (15-50); MCH 25.6 pg (26.0-34.0); MCHC 30.4 g/dL (31.0-37.0); MCV 84.4 fL (80.0-100.0); MEAN PLATELET VOLUME 10.1 fL (7.4-10.4); MONOCYTES 9.4 % (2-11); NEUTROPHILS 66.7 % (40-80); PLATELET COUNT 216 10x3/uL (130-400); RBC 3.47 10x6/uL (4.00-5.40); RDW 16.8 % (11.5-14.5); WBC 7.6 10x3/uL (4.8-10.8)
[2018-12-01 06:46] LABS: ALBUMIN 2.5 g/dL (3.4-5.0); ALKALINE PHOSPHATASE 49 U/L (46-116); BILIRUBIN - TOTAL 0.31 mg/dL (0.2-1.3); CALC OSMOLALITY 292 mosm/kg (275-300); CALCIUM 8.5 mg/dL (8.5-10.1); CARBON DIOXIDE 30.5 mmol/L (21.0-32.0); CHLORIDE - SERUM 104 mmol/L (98-107); CKMB 0.8 U/L (0.0-3.6); CREATINE KINASE 19 UL (21-215); CREATININE - SERUM 2.4 mg/dL (0.6-1.3); GLUCOSE 90 mg/dL (74-106); MAGNESIUM - SERUM 2.2 mg/dL (1.8-2.4); PHOSPHOROUS 3.2 mg/dL (2.5-4.9); POTASSIUM - SERUM 4.5 mmol/L (3.5-5.1); PROTEIN - SERUM 5.2 g/dL (6.4-8.2); SODIUM 139 mmol/L (136-145); TROPONIN-I 0.021 ng/mL (0.000-0.060); UREA NITROGEN 55 mg/dL (7-18); eGFR NON AFRICAN AMERICAN 20 mL/min (90-120)
[2018-12-01 06:48] LABS: ALT (SGPT) 11 U/L (10-68)
--- NOTE | 2018-12-01 10:41 | NUR ---
PT'S DAUGHTER SAY PT SEES DR. RAGLAND FOR NEPHROLOGY AND THEY WOULD LIKE NEPHROLOGY CONSULTED. I VERBALIZED UNDERSTANDING. CALLED AND SPOKE WITH LYNDON ERWIN ABOUT THEIR REQUEST AND SHE STATES "OK."
--- NOTE | 2018-12-01 12:14 | NUR ---
I have reviewed this patient and I concur with the Shift Assessment completed by the Licensed Practical Nurse today this shift.
--- NOTE | 2018-12-01 13:27 | MORECARE ---
CASE MANAGEMENT DISCHARGE SUMMARY PATIENT: MICHELLE MEDRANO UNIT: [id number] ADM DATE: 11/30/18 AGE: 83 : 33 SEX: F ROOM/BED: D.6334 AUTHOR: DESEAN MONTELONGO PHYSICIAN: REFERRING PHYSICIAN: KENROY BERNARD MD DATE OF SERVICE: 12/01/18 Discharge Plan Patient Name: MICHELLE MEDRANO Facility: [facility]:[place] : 1935 Planned Disposition: Anticipated Discharge Date: Discharge Date: Expected LOS: Initial Reviewer: [email or web address] Initial Review Date: 12/01/2018 Generated: 12/01/18 2:26 pm DCP- Discharge Planning Updated by [email or web address]: Dunia Serna on 12/01/18 12:[address] Patient Name: MICHELLE MEDRANO Admission Status: ER Accout number: [id number] Admission Date: 11-30-2018 : 1935 Admission Diagnosis: Attending: KENROY BERNARD Current LOS: 1 Anticipated DC Date: Planned Disposition: Primary Insurance: [employer] PPO [employer] Discharge Planning Comments: CM MET WITH PATIENT AND HER DAUGHTER. THEY ARE INTERESTED IN HOSPICE WITH [facility]. YAW SIGNED. JOHN WITH HOSPICE CONTACTED AND HE WILL MEET WITH THEM TO DAY. CM TO FOLLOW AND ASSIST. Marketing Financial Analyst: Dunia Serna DCPIA - Discharge Planning Initial Assessment Updated by [id number]: Dunia Serna on 12/01/18 1:21 pm * Is the patient Alert and Oriented? Yes * Community resources currently utilized Home Health * Please name any agencies selected above. [facility] Coverage Notice Reviewer: [id number] - Dunia Serna Notice Issued Date-Time: 12/01/2018 13:22 Notice Type: Patient Choice Letter Notice Delivered To: Patient Relationship to Patient: Oracle Programmer Name: Delivery Method: HAND - Hand Delivered Shannon Days: Prior Verbal Notification: Recipient Understood Notice: Yes Recipient Signature: Yes Med Rec Note Co-signed by Attending: Coverage Notice Comment: [facility] Patient Name: MICHELLE MEDRANO Page 07135 at 1327 All edits/amendments must be made on the electronic document DICTATION DATE: 12/01/181325 NIGHT TIME NANNY: SILVIA 12/01/181325 RPT#: [id number] DC DATE: STATUS: ADM IN [facility] [address] [place] [address] END OF REPORT
--- NOTE | 2018-12-01 14:51 | NUR ---
REFUSED SCD'S AT THIS TIME PER SALUD/AIDAN
--- NOTE | 2018-12-01 19:10 | NUR ---
REPORT RECEIVED, WILL CONTINUE POC. PATIENT IS CONFUSED AND IS A TOTAL ASSIST. PATIENT HAS AN ABD HERNIA, REDDENED BUTTOCKS, BRUISES TO ALL EXTREMETIES AND IS [place]. NO S/S OF DISTRESS OBSERVED, RR EVEN AND UNLABORED ON 2.5L O2 VIA NC. IV TO RT SHOULDER INFUSING NS KVO, PATENT, DRSG C/D/I. PATIENT DENIES NEEDS AT THIS TIME. CL IN REACH, BED LOCKED AND LOWERED. WILL CTM.
[2018-12-02] VITALS: BP 130/86
--- NOTE | 2018-12-02 01:44 | NUR ---
I have reviewed this patient and I concur with the Shift Assessment completed by the Licensed Practical Nurse today this shift.
[2018-12-02 05:12] LABS: BASOPHILS 0.2 % (0-2); EOSINOPHILS 2.6 % (0-7); HEMATOCRIT 28.6 % (36.0-48.0); HEMOGLOBIN 9.1 g/dL (12-16); IMMATURE GRANULOCYTES 0.3 % (0-5); LYMPHOCYTES 13.2 % (15-50); MCH 26.3 pg (26.0-34.0); MCHC 31.8 g/dL (31.0-37.0); MCV 82.7 fL (80.0-100.0); MEAN PLATELET VOLUME 9.5 fL (7.4-10.4); MONOCYTES 6.5 % (2-11); NEUTROPHILS 77.2 % (40-80); PLATELET COUNT 219 10x3/uL (130-400); RBC 3.46 10x6/uL (4.00-5.40); RDW 16.6 % (11.5-14.5); WBC 8.7 10x3/uL (4.8-10.8)
[2018-12-02 05:44] LABS: ANION GAP 8.6 mmol/L (8-16); CALCIUM 8.4 mg/dL (8.5-10.1); CARBON DIOXIDE 31.5 mmol/L (21.0-32.0); CREATININE - SERUM 2.4 mg/dL (0.6-1.3); PHOSPHOROUS 2.8 mg/dL (2.5-4.9); POTASSIUM - SERUM 4.1 mmol/L (3.5-5.1)
--- NOTE | 2018-12-02 07:16 | NUR ---
REPORT RECEIVED. WILL CONTINUE WITH POC. PT CURRENTLY LYING SEMI FOWLERS. CALL LIGHT W/I REACH. PT IS AAO AND FAMILY IS AT BEDSIDE. RR EVEN AND UNLABORED ON 2.5L 02. NS INFUSING @KVO VIA R.SHOULDER PIV. NO S/S OF DISTRESS NOTED. PT DENIES ANY NEEDS AT THIS TIME. WILL CTM.
[2018-12-02 08:34] VITALS: BP 161/87
--- NOTE | 2018-12-02 09:14 | CN ---
PATIENT NAME:MICHELLE BANERJEE MEDICAL RECORD: [id number] : [birth year] LOCATION:D. D.2128 ADMIT DATE: 11/30/18 ACCOUNT: [id number] CONSULTING PHYSICIAN: DEVEN CEJA MD REFERRING PHYSICIAN: KENROY BERNARD MD DATE OF CONSULTATION: 12/01/2018 CARDIOLOGY CONSULTATION DATE OF SERVICE: 12/01/2018 DIAGNOSES: 1. Shortness of breath, dyspnea on exertion. 2. Renal insufficiency. 3. Urinary tract infection. 4. Congestive heart failure, diastolic dysfunction. 5. Pulmonary edema. 6. Coronary artery disease. 7. Hypertension. 8. Previous percutaneous transluminal coronary angioplasty stent. 9. Anemia. HISTORY OF PRESENT ILLNESS: Mrs. Banerjee presents with shortness of breath, dyspnea on exertion, found to have a urinary tract infection, found to have renal insufficiency. From a cardiac standpoint, chest x-ray has mild pulmonary edema. She does have diastolic dysfunction. She is receiving diuresis. Her last ejection fraction was normal at 55% to 60%. She has had no chest pain. Last cardiac intervention was in the summer. PHYSICAL EXAMINATION: CONSTITUTIONAL/GENERAL APPEARANCE: Well nourished, well developed, appears stated age. EYES: Lids and conjunctivae noninjected. No discharge. No pallor. ENT: Lips within normal limit. No cyanosis. No pallor. NECK: Carotid arteries, bilateral normal upstroke. No bruits. No thrills. No jugular venous pressure or distention. CERVICAL LYMPH NODES: Nontender. Nonenlarged. THYROID: Not enlarged. No nodules. CARDIOVASCULAR: Precordial exam, nondisplaced. No heaves or pericardial thrills. Rate and rhythm, regular. Heart sounds, normal S1, normal S2. No S3, no gallop, no rub. Systolic murmur, not heard. Diastolic murmur, not heard. RESPIRATORY: Respiratory effort, unlabored. Normal curvature. No thoracic deformity. No chest wall tenderness. Percussion, resonant. Auscultation, clear. No wheezes, no rales, no rhonchi. ABDOMEN: Soft, nondistended, nontender. No abdominal pain, no vomiting and normal appetite. MUSCULOSKELETAL: No joint tenderness, normal gait, normal tone. SKIN: Warm and dry. OVERALL IMPRESSION: Shortness of breath, dyspnea on exertion. She is clearly markedly hypertensive. She has bradycardic, hence no further beta blockade will be needed as she is already on Coreg. Cannot use an JM inhibitor or ARB secondary to her renal insufficiency. We will add Norvasc 5 mg b.i.d. to her medical regimen as well as Cardura 2 mg b.i.d. Hopefully, this will give afterload reduction, improve the diastolic dysfunction as well as the heart CONSULT REPORT [id number] MITCHELL,MICHELLE R failure, and no other cardiac workup or treatment is necessary. TRANSINT:[id number] Voice Confirmation ID: [id number] DOCUMENT ID: [id number] DEVEN CEJA MD at 0914 CC: [id number] DICTATION DATE: 12/01/18939 COMMERCIAL AGENT: 12/01/18 1530 ADM IN [facility] [id number] [place] [address]
[2018-12-02 12:30] VITALS: BP 138/79
[2018-12-02 16:50] VITALS: BP 147/82
--- NOTE | 2018-12-02 17:38 | NUR ---
I have reviewed this patient and I concur with the Shift Assessment completed by the Licensed Practical Nurse today this shift.
--- NOTE | 2018-12-02 19:15 | NUR ---
REPORT RECEIVED, WILL CONTINUE POC. PATIENT IS RESTING ON RT SIDE WITH EYES CLOSED, DAUGHTER AT BEDSIDE. IV TO RT SHOULDER IS SL, PATENT, DRSG C/D/I. NO S/S OF DISTRESS OBSERVED, RR EVEN AND UNLABORED ON 2.5L O2 VIA NC. CL IN REACH, BED LOCKED AND LOWERED, FALL PRECAUTIONS IN PLACE. WILL CTM.
[2018-12-02 20:00] VITALS: BP 194/64
[2018-12-03] VITALS: BP 168/75
[2018-12-03 04:00] VITALS: BP 127/68
--- NOTE | 2018-12-03 04:04 | NUR ---
PATIENT C/O OF BACK PAIN, PRN NORCO ADMINISTERED PER ORDERS. WILL CTM.
[2018-12-03 05:51] LABS: BASOPHILS 0.3 % (0-2); HEMATOCRIT 31.9 % (36.0-48.0); HEMOGLOBIN 9.6 g/dL (12-16); IMMATURE GRANULOCYTES 0.8 % (0-5); LYMPHOCYTES 12.9 % (15-50); MCH 26.2 pg (26.0-34.0); MCHC 30.1 g/dL (31.0-37.0); MEAN PLATELET VOLUME 10.1 fL (7.4-10.4); MONOCYTES 7.7 % (2-11); NEUTROPHILS 76.3 % (40-80); PLATELET COUNT 259 10x3/uL (130-400); RBC 3.67 10x6/uL (4.00-5.40); RDW 16.9 % (11.5-14.5)
[2018-12-03 06:22] LABS: ANION GAP 10.4 mmol/L (8-16); CREATININE - SERUM 2.4 mg/dL (0.6-1.3); MAGNESIUM - SERUM 2.2 mg/dL (1.8-2.4); PHOSPHOROUS 2.5 mg/dL (2.5-4.9); POTASSIUM - SERUM 4.4 mmol/L (3.5-5.1)
[2018-12-03 06:30] LABS: MCV 86.9 fL (80.0-100.0)
--- NOTE | 2018-12-03 06:47 | NUR ---
I have reviewed this patient and I concur with the Shift Assessment completed by the Licensed Practical Nurse today this shift.
--- NOTE | 2018-12-03 06:48 | NUR ---
I have reviewed this patient and I concur with the Shift Assessment completed by the Licensed Practical Nurse today this shift.
--- NOTE | 2018-12-03 07:18 | NUR ---
REPORT RECEIVED. WILL CONTINUE WITH POC. PT CURRENTLY LYING SEMI FOWLERS. CALL LIGHT W/I REACH. FAMILY AT BEDSIDE. PT IS PLEASANTLY CONFUSED AND DENIES ANY NEEDS AT THIS TIME. NO S/S OF DISTRESS NOTED. R.SHOULDER PIV IS SALINE LOCKED. RR EVEN AND UNLABORED ON RA. PT DENIES ANY NEEDS. WILL CTM.
[2018-12-03 08:03] VITALS: BP 175/86
--- NOTE | 2018-12-03 10:00 | NUR ---
PT DISCAHRGED HOME VIA STRETCHER WITH [facility]. PIV REMOVED WITH CATHETER TIP FULLY INTACT. TELEMETRY REMOVED AND RETURNED. PT DAUGHTER SIGNED PROPER DISCHARGE INSTRUCTIONS AND REMOVED ALL VALUABLES FROM THE ROOM.
--- NOTE | 2018-12-03 14:48 | MORECARE ---
CASE MANAGEMENT DISCHARGE SUMMARY PATIENT: MICHELLE MEDRANO UNIT: [id number] ADM DATE: 11/30/18 AGE: 83 : 31 SEX: F ROOM/BED: D.0025 AUTHOR: DESEAN MONTELONGO PHYSICIAN: REFERRING PHYSICIAN: KENROY BERNARD MD DATE OF SERVICE: 12/03/18 Discharge Plan Patient Name: MICHELLE MEDRANO Facility: [facility]:[place] : 1935 Planned Disposition: Anticipated Discharge Date: Discharge Date: 12/03/2018 Expected LOS: Initial Reviewer: [email or web address] Initial Review Date: 12/01/2018 Generated: 12/03/18 3:47 pm DCP- Discharge Planning Updated by [email or web address]: Dunia Serna on 12/01/18 12:[address] Patient Name: MICHELLE MEDRANO Admission Status: ER Accout number: [id number] Admission Date: 11-30-2018 : 1935 Admission Diagnosis: Attending: KENROY BERNARD Current LOS: 1 Anticipated DC Date: Planned Disposition: Primary Insurance: [employer] CHO[employer] PPO [employer] Discharge Planning Comments: CM MET WITH PATIENT AND HER DAUGHTER. THEY ARE INTERESTED IN HOSPICE WITH [facility]. YAW SIGNED. JOHN WITH HOSPICE CONTACTED AND HE WILL MEET WITH THEM TO DAY. CM TO FOLLOW AND ASSIST. Database Marketing Analyst: Dunia Serna DCPIA - Discharge Planning Initial Assessment Updated by [id number]: Dunia Serna on 12/01/18 1:21 pm * Is the patient Alert and Oriented? Yes * Community resources currently utilized Home Health * Please name any agencies selected above. [employer] Coverage Notice Reviewer: [email or web address] - Dunia Serna Notice Issued Date-Time: 12/01/2018 13:22 Notice Type: Patient Choice Letter Notice Delivered To: Patient Relationship to Patient: Resource Room Special Education Teacher Name: Delivery Method: HAND - Hand Delivered Shannon Days: Prior Verbal Notification: Recipient Understood Notice: Yes Recipient Signature: Yes Med Rec Note Co-signed by Attending: Coverage Notice Comment: [facility] Last DP export: 12/01/18 12:27 p Patient Name: MICHELLE MEDRANO Page [id number] at 1448 All edits/amendments must be made on the electronic document DICTATION DATE: 12/03/181446 MILK INSPECTOR: SILVIA 12/03/18 1447 RPT#: [id number] DC DATE:12/03/18 STATUS: DIS IN [facility] [address] [place] [address] END OF REPORT
== END 2018-12-03 10:01 | disposition home health service (06) | DRG 871 ==
LOC: D.ER 13:23 → D.M2 18:12
PROVIDERS: Family Medicine; ADMIT Internal Medicine Nephrology; ATTEND Internal Medicine Nephrology
DX: A41.9 Sepsis, unspecified organism (principal); I50.33 Acute on chronic diastolic (congestive) heart failure; N39.0 Urinary tract infection, site not specified; I13.0 Hypertensive heart and chronic kidney disease with heart failure and stage 1 through stage 4 chronic kidney disease, or unspecified chronic kidney disease; N18.4 Chronic kidney disease, stage 4 (severe); E11.22 Type 2 diabetes mellitus with diabetic chronic kidney disease; Z86.73 Personal history of transient ischemic attack (TIA), and cerebral infarction without residual deficits; I71.4 Abdominal aortic aneurysm, without rupture; J44.9 Chronic obstructive pulmonary disease, unspecified; F41.8 Other specified anxiety disorders; D63.1 Anemia in chronic kidney disease; I25.10 Atherosclerotic heart disease of native coronary artery without angina pectoris; R40.2244 Coma scale, best verbal response, confused conversation, 24 hours or more after hospital admission; R40.2364 Coma scale, best motor response, obeys commands, 24 hours or more after hospital admission; R40.2134 Coma scale, eyes open, to sound, 24 hours or more after hospital admission